=== PATIENT | female | born 1940 | race Caucasian/White ===

== ENCOUNTER → 2023-04-24 08:42 | Outpatient (REF) | payer MEDICARE, OTHER, SELFPAY ==
[2023-04-24 09:43] LABS: ALT (SGPT) 34 U/L (0-35); AST (SGOT) 41 U/L (14-36); Albumin 4.6 g/dl (3.5-5.0); Alkaline Phosphatase 73 U/L (38-126); Blood Urea Nitrogen 21 mg/dl (7-17); Calcium 10.3 mg/dl (8.4-10.2); Carbon Dioxide 31 mmol/L (22-30); Chloride 100 mmol/L (98-107); Glucose 101 mg/dl (70-99); Potassium 5.4 mmol/L (3.5-5.1); Sodium 136 mmol/L (135-145); Total Bilirubin 1.1 mg/dl (0.2-1.3); Total Protein 7.5 g/dl (6.3-8.2); eGFR > 60.00
[2023-04-24 10:18] LABS: TSH 1.01 uIU/ml (0.47-4.68)
[2023-04-26 03:19] LABS: ANA, IgG Reflex to HEp-2 None Detected (None Detected)
== END ==
LOC: REG 08:42
PROVIDERS: ATTENDING PHYSICIAN Nurse Practitioner Family
DX: R42 Dizziness and giddiness (principal); R68.2 Dry mouth, unspecified; E78.5 Hyperlipidemia, unspecified
CPT/HCPCS: 36415; 80053; 84443; 86038

== ENCOUNTER → 2023-04-26 09:44 | Outpatient (REF) | payer MEDICARE, OTHER, SELFPAY ==
[2023-04-26 10:24] LABS: ALT (SGPT) 31 U/L (0-35); AST (SGOT) 36 U/L (14-36); Albumin 4.5 g/dl (3.5-5.0); Alkaline Phosphatase 75 U/L (38-126); Blood Urea Nitrogen 18 mg/dl (7-17); Carbon Dioxide 27 mmol/L (22-30); Chloride 99 mmol/L (98-107); Glucose 95 mg/dl (70-99); Potassium 4.3 mmol/L (3.5-5.1); Sodium 133 mmol/L (135-145); Total Bilirubin 1.2 mg/dl (0.2-1.3); Total Protein 7.6 g/dl (6.3-8.2); eGFR > 60.00
== END ==
LOC: REG 09:44
PROVIDERS: ATTENDING PHYSICIAN Nurse Practitioner Family; FAMILY PHYSICIAN Family Medicine
DX: E87.8 Other disorders of electrolyte and fluid balance, not elsewhere classified (principal)
CPT/HCPCS: 36415; 80053

== ENCOUNTER → 2023-05-28 08:36 | Outpatient (REF) | payer MEDICARE, OTHER, SELFPAY ==
[2023-05-28 09:47] LABS: Blood Urea Nitrogen 24 mg/dl (7-17); Carbon Dioxide 30 mmol/L (22-30); Chloride 102 mmol/L (98-107); Glucose 104 mg/dl (70-99); Potassium 4.2 mmol/L (3.5-5.1); Sodium 137 mmol/L (135-145); eGFR > 60.00
== END ==
LOC: REG 08:36
PROVIDERS: ATTENDING PHYSICIAN Nurse Practitioner Family; FAMILY PHYSICIAN Family Medicine
DX: I10 Essential (primary) hypertension (principal); E87.1 Hypo-osmolality and hyponatremia
CPT/HCPCS: 36415; 80048

== ENCOUNTER → 2023-07-17 13:58 | Outpatient (REF) | payer MEDICARE, OTHER, SELFPAY | LOC: WDC 13:58 | PROVIDERS: ATTENDING PHYSICIAN Surgery; FAMILY PHYSICIAN Family Medicine | DX: R92.2 Inconclusive mammogram (principal) | CPT/HCPCS: 76641 ==

== ENCOUNTER → 2023-12-18 12:42 | Outpatient (REF) | payer MEDICARE, OTHER, SELFPAY | LOC: WDC 12:42 | PROVIDERS: ATTENDING PHYSICIAN Surgery; FAMILY PHYSICIAN Family Medicine | DX: C50.412 Malignant neoplasm of upper-outer quadrant of left female breast (principal); Z12.31 Encounter for screening mammogram for malignant neoplasm of breast | CPT/HCPCS: 77063; 77067 ==

== ENCOUNTER 2024-01-22 15:45 | Outpatient (RCR) | payer MEDICARE, OTHER, SELFPAY | END 2024-01-22 23:59 | disposition home or self-care (01) | LOC: RPT 15:45 | PROVIDERS: ATTENDING PHYSICIAN Family Medicine | DX: M54.31 Sciatica, right side (principal); Z73.6 Limitation of activities due to disability; R26.89 Other abnormalities of gait and mobility | CPT/HCPCS: 97010; 97110; 97162 ==

== ENCOUNTER 2024-02-05 15:46 | Outpatient (RCR) | payer MEDICARE, OTHER, SELFPAY | END 2024-02-05 23:59 | disposition home or self-care (01) | LOC: RPT 15:46 | PROVIDERS: ATTENDING PHYSICIAN Family Medicine | DX: M54.30 Sciatica, unspecified side (principal); R26.89 Other abnormalities of gait and mobility; Z73.6 Limitation of activities due to disability | CPT/HCPCS: 97010; 97110 ==

== ENCOUNTER 2024-03-07 15:06 | Outpatient (RCR) | payer MEDICARE, OTHER, SELFPAY | END 2024-03-07 15:08 | disposition home or self-care (01) | LOC: RPT 15:06 | PROVIDERS: ATTENDING PHYSICIAN Family Medicine | DX: M54.30 Sciatica, unspecified side (principal); R26.89 Other abnormalities of gait and mobility; Z73.6 Limitation of activities due to disability | CPT/HCPCS: 97010; 97110 ==

== ENCOUNTER → 2024-05-16 10:57 | Outpatient (REF) | payer MEDICARE, OTHER, SELFPAY | LOC: RCS 10:57 | PROVIDERS: ATTENDING PHYSICIAN Physician Assistant | DX: R53.83 Other fatigue (principal); Z95.2 Presence of prosthetic heart valve; Q23.81 Bicuspid aortic valve; R05.3 Chronic cough | CPT/HCPCS: 71046; 93306 ==

== ENCOUNTER → 2024-05-16 15:06 | Outpatient (REF) | payer MEDICARE, OTHER, SELFPAY ==
[2024-05-16 15:39] LABS: Blood Urea Nitrogen 22 mg/dl (7-17); Calcium 10.4 mg/dl (8.4-10.2); Carbon Dioxide 32 mmol/L (22-30); Chloride 99 mmol/L (98-107); Glucose 127 mg/dl (70-99); Potassium 3.7 mmol/L (3.5-5.1); Sodium 136 mmol/L (135-145); eGFR > 60.00
== END ==
LOC: RAD 15:06
PROVIDERS: ATTENDING PHYSICIAN Physician Assistant
DX: I77.810 Thoracic aortic ectasia (principal)
CPT/HCPCS: 36415; 71260; 80048; Q9967

== ENCOUNTER → 2024-05-19 07:52 | Outpatient (REF) | payer MEDICARE, OTHER, SELFPAY ==
[2024-05-19 09:26] LABS: % Basophils 0.4 % (0-2); % Eosinophils 1.2 % (0-6); % Immature Granulocytes 0.3 % (0-0.5); % Lymphocytes 28.9 % (20.5-51.1); % Monocytes 8.5 % (1.7-9.3); % Neutrophils 60.7 % (42.2-75.2); Absolute Eosinophils 0.1 10^3/uL (0-0.7); Absolute Monocytes 0.6 10^3/uL (0.1-0.6); Absolute Neutrophils 4.1 10^3/uL (1.4-6.5); Hematocrit 48.3 % (37.0-47.0); Hemoglobin 15.2 g/dL (12.0-16.0); Mean Corp Hgb Conc. 31.5 g/dL (33.0-37.0); Mean Corpuscular Hgb 29.3 pg (27.0-31.0); Mean Corpuscular Volume 93.2 fL (81.0-99.0); Mean Platelet Volume 12.7 fL (7.4-10.4); Nucleated Red Blood Cells % 0 %; Platelet Count 132 10^3/uL (130-400); Red Blood Cell Count 5.18 10^6/uL (4.20-5.40); Red Cell Dist. Width 13.3 % (11.5-14.5); White Blood Cell Count 6.8 10^3/uL (4.8-10.8)
[2024-05-19 10:10] LABS: ALT (SGPT) 33 U/L (0-35); AST (SGOT) 36 U/L (14-36); Albumin 5.2 g/dl (3.5-5.0); Alkaline Phosphatase 70 U/L (38-126); Blood Urea Nitrogen 15 mg/dl (7-17); Calcium 10.6 mg/dl (8.4-10.2); Carbon Dioxide 29 mmol/L (22-30); Chloride 98 mmol/L (98-107); Glucose 108 mg/dl (70-99); HDL Cholesterol 65 mg/dl; LDL Cholesterol, Calculated 137 mg/dl; Potassium 4.7 mmol/L (3.5-5.1); Sodium 138 mmol/L (135-145); Total Bilirubin 1.4 mg/dl (0.2-1.3); Total Cholesterol 234 mg/dl (50-199); Triglyceride 160 mg/dl (10-149); Very Low Density Lipoprotein 32 mg/dl (0-30); eGFR > 60.00
[2024-05-19 10:43] LABS: Vitamin B12 398 pg/ml (239-931)
== END ==
LOC: REG 07:52
PROVIDERS: ATTENDING PHYSICIAN Family Medicine
DX: K21.9 Gastro-esophageal reflux disease without esophagitis (principal); I10 Essential (primary) hypertension; Z79.899 Other long term (current) drug therapy
CPT/HCPCS: 36415; 80053; 80061; 82607; 85025

== ENCOUNTER → 2024-09-11 12:26 | Outpatient (REF) | payer MEDICARE, OTHER, SELFPAY | LOC: RSP 12:26 | PROVIDERS: ATTENDING PHYSICIAN Family Medicine | DX: R06.02 Shortness of breath (principal) | CPT/HCPCS: 94727; 94729; 88738; 94060 ==

== ENCOUNTER 2024-09-18 21:18 | Emergency (ER) | payer MEDICARE, OTHER, SELFPAY ==
[2024-09-18 21:22] VITALS: BP 140/84
--- NOTE | 2024-09-18 23:00 | ED.GENMED ---
History of Present Illness
General
Chief Complaint: Abdominal Symptoms
Source: patient
Exam Limitations: none
Time Seen by Provider: 09/18/24 22:45
History of Present Illness
History of Present Illness:
83yoF with a history of pulmonary hypertension, GERD, and IBS-D presenting for evaluation of diarrhea. Patient had COVID in January of last year. She has been having intermittent issues with diarrhea since then. Her current symptoms started
'acting up' about a week ago. She denies any associated fevers, abdominal pain, hematochezia, or vomiting. No sick contacts, recent antibiotics, or recent travel. Her last colonoscopy was 2 years ago which was reportedly normal.
Past History
Past History
ED Past Medical History: HTN, Valvular disease and Other (Grade 1 breast cancer,)
ED Past Surgical History: Cardiac
Social History
Tobacco: Non-smoker
Personal:
Employment: Employed
Phy Exam
General Physical Exam
General Presentation: well appearing and no apparent distress
General Skin: warm and dry
General Habitus: normal
General Mental: alert
ENT Exam
ENT Exam: normocephalic
Pulmonary Exam
Pulmonary Exam: no respiratory distress
Gastrointestinal Exam
Gastrointestinal Exam: non tender, soft and non distended
Neurological Exam
Neurological Exam: alert
[place] Coma Scale
Eye Opening: Spontaneous
Verbal Response: Oriented
Motor Response: Obeys Commands
GCS Total Score: 15
Skin Exam
Skin Exam: normal color and warm/dry
Psychiatric Exam
Psychiatric Exam: normal mood/affect
Course
Orders/Labs/Results
Orders:
Orders
09/18/24 22:46
Complete Blood Count/With Diff Urgent
Comprehensive Metabolic Panel Urgent
Lipase Urgent
09/18/24 22:58
Stool Culture Urgent
IDA Source: Feces/Stool
Specimen Description:
Date Specimen was Collected: 09/19/24
Time Specimen was Collected: 00:17
0.9% Sodium Chloride 500 ml [Nss] 500 ml IV BOLUS
09/18/24 23:26
Ondansetron Injectable [Zofran] 4 mg .ROUTE .STK-MED ONE
09/18/24 23:29
Ondansetron Injectable [Zofran] 4 mg IV NOW STA
09/18/24 23:48
0.9% Sodium Chloride 500 ml [Nss] 500 ml IV BOLUS
Abnormal Lab Results
09/18/24
22:46
Plt Count 126 L 10^3/uL
(130-400)
MPV 12.9 H fL
(7.4-10.4)
Absolute Monos (auto) 0.9 H 10^3/uL
(0.1-0.6)
Monocytes % 10.2 H %
(1.7-9.3)
Sodium 129 L mmol/L
(135-145)
Chloride 96 L mmol/L
(98-107)
Glucose 101 H mg/dl
(70-99)
Total Bilirubin 1.6 H mg/dl
(0.2-1.3)
09/18/24 22:46
09/18/24 22:46
Vital Signs
Initial and Last Documented VS:
Initial Vital Signs
Temp Pulse Resp BP Pulse Ox
98.1 F 60 20 140/84 96
09/18/24 21:22 09/18/24 21:22 09/18/24 21:22 09/18/24 21:22 09/18/24 21:22
Last Documented Vital Signs
Temp Pulse Resp BP Pulse Ox
98.1 F 63 18 164/86 95
09/18/24 21:22 09/19/24 01:09 09/19/24 01:09 09/19/24 01:09 09/19/24 01:09
MDM/Problems Addressed
Differential Diagnosis Includes:
83yoF here with diarrhea. Intermittent for >6 months. Hx of IBS-D. Denies abd pain or vomiting. She is hypertensive with otherwise stable vitals. She is well appearing and resting comfortably. Abdominal exam is benign. Differential diagnosis
includes but is not limited to: Infectious diarrhea, IBS, dehydration
Initial ED plan: Check abdominal labs and stool culture. IV fluid bolus. Defer abdominal imaging given benign exam and lack of pain.
*Pulse Oximetry
SaO2: 96
Oxygen Mode of Delivery: Room air
Patient hypoxic: no (96%)
*Critical Care Note
Total Time (30-74mins, 75-104mins- exclusive of procedures): Not Applicable
Update Note
Update Note:
Labs reveal a sodium of 129 and a chloride of 96. Renal function is normal. Additional 500 cc normal saline bolus provided. No indication for hospitalization. She has used Imodium in the past with improvement but has not taken this recently.
She was advised to start taking Imodium as needed and call her carpenter packing tomorrow for follow-up. ED return precautions reviewed. Patient and family in agreement with plan and she was discharged in stable condition.
ED Attending Note
-
Portions of this chart may have been created with voice recognition software.� Occasional wrong word or��sound alike� substitutions may have occurred due to the inherent limitations of voice recognition software.
Discharge Plan
Departure
Patient Disposition: Home (Routine Discharge)
Date of Disposition: 09/19/24
Time of Disposition: 00:50
Patient with high blood pressure during this ER visit?: Yes
Discharge Problem:
Diarrhea, Hyponatremia
Instructions: Diarrhea in adults - ED discharge instructions
Prescriptions:
No Action
cetirizine 10 MG tablet
10 mg PO DAILY PRN (Reason: prn)
multivitamin with folic acid [Tab-A-Ángel] 1 TABLET tablet
1 tab PO DAILY
ascorbate calcium (vitamin C) 500 MG tablet
500 mg PO DAILY
hydrochlorothiazide 25 MG tablet
12.5 mg PO DAILY PRN (Reason: water retention)
cholecalciferol (vitamin D3) [Vitamin D3] 2,000 UNIT capsule
2,000 units PO DAILY
famotidine [Pepcid] 20 MG tablet
20 mg PO DAILY Qty: 30 0RF
amlodipine 2.5 mg Tablet
2.5 mg PO DAILY
lisinopril 2.5 MG tablet
20 mg PO BID
metoprolol tartrate 25 MG tablet
50 mg PO BID
Rx Instructions:
DO NOT take prior dose
Referrals:
Walter Ko MD [Family Provider, Family Practice]
Tita Couch DO [Active, Gastroenterology]
Activity Restrictions/Additional Instructions:
Drink plenty of fluids and stay hydrated. Take Imodium as needed for diarrhea.
Please call your carpenter packing tomorrow for follow-up and further instructions. Return to the ER with any new or worsening symptoms.
Interventions
Interventions:
*Risk Screen - Suicide Last Done: 09/18/24 21:22
*General Assessment Last Done: 09/18/24 21:22
*Neglect/Abuse Screening Last Done: 09/19/24 01:10
*ED- Fall Risk Assessment Last Done: 09/19/24 01:10
*ED COVID-19 Vaccine History Last Done: 09/19/24 01:10
*Nursing Disposition Last Done: 09/19/24 01:10
KR-Kqlkwe-Obaincqjtp Assessment Last Done: 09/18/24 22:48
Discharge Date and Time
Discharge Date/Time: 09/19/24 01:10
Print Language: KIS[place]ILI
[2024-09-18 23:08] LABS: ALT (SGPT) 23 U/L (0-35); AST (SGOT) 31 U/L (14-36); Albumin 4.7 g/dl (3.5-5.0); Alkaline Phosphatase 51 U/L (38-126); Blood Urea Nitrogen 11 mg/dl (7-17); Calcium 10.2 mg/dl (8.4-10.2); Carbon Dioxide 28 mmol/L (22-30); Chloride 96 mmol/L (98-107); Glucose 101 mg/dl (70-99); Lipase 90 U/L (23-300); Potassium 3.8 mmol/L (3.5-5.1); Sodium 129 mmol/L (135-145); Total Bilirubin 1.6 mg/dl (0.2-1.3); Total Protein 7.4 g/dl (6.3-8.2); eGFR > 60.00
[2024-09-18] MEDS: NSS 500 IV ×2 (23:20→23:54)
[2024-09-18 23:25] LABS: % Basophils 0.4 % (0-2); % Eosinophils 0.8 % (0-6); % Immature Granulocytes 0.2 % (0-0.5); % Lymphocytes 21.2 % (20.5-51.1); % Monocytes 10.2 % (1.7-9.3); % Neutrophils 67.2 % (42.2-75.2); Absolute Eosinophils 0.1 10^3/uL (0-0.7); Absolute Lymphocytes 1.8 10^3/uL (1.2-3.4); Absolute Monocytes 0.9 10^3/uL (0.1-0.6); Absolute Neutrophils 5.7 10^3/uL (1.4-6.5); Hemoglobin 14.1 g/dL (12.0-16.0); Mean Corp Hgb Conc. 34.4 g/dL (33.0-37.0); Mean Corpuscular Hgb 30.1 pg (27.0-31.0); Mean Corpuscular Volume 87.6 fL (81.0-99.0); Mean Platelet Volume 12.9 fL (7.4-10.4); Nucleated Red Blood Cells % 0 %; Platelet Count 126 10^3/uL (130-400); Red Blood Cell Count 4.68 10^6/uL (4.20-5.40); Red Cell Dist. Width 13.1 % (11.5-14.5); White Blood Cell Count 8.4 10^3/uL (4.8-10.8)
[2024-09-18] MEDS: ZOFRAN 4 MG IV (23:29)
[2024-09-19 01:09] VITALS: BP 164/86
== END 2024-09-19 01:10 | disposition home or self-care (01) ==
LOC: EMR 21:18
PROVIDERS: EMERGENCY PHYSICIAN Student in an Organized Health Care Education/Training Program; FAMILY PHYSICIAN Family Medicine
DX: R19.7 Diarrhea, unspecified (principal); E87.1 Hypo-osmolality and hyponatremia; K58.0 Irritable bowel syndrome with diarrhea; I10 Essential (primary) hypertension; I38 Endocarditis, valve unspecified; I27.20 Pulmonary hypertension, unspecified; Z85.3 Personal history of malignant neoplasm of breast
CPT/HCPCS: 99283; 96374; 80053; 83690; 85025; 87045; 87046; 87427

== ENCOUNTER 2024-09-19 09:40 | Emergency (ER) | payer MEDICARE, OTHER, SELFPAY ==
[2024-09-19] VITALS (9 sets, daily range): BP systolic 110–162; BP diastolic 72–114; BMI 25.8
--- NOTE | 2024-09-19 10:35 | ED.GENMED ---
History of Present Illness
General
Chief Complaint: Abdominal Symptoms
Source: patient
Exam Limitations: none
Time Seen by Provider: 09/19/24 10:34
Nursing documentation reviewed up to this point in time: agreed with
History of Present Illness
History of Present Illness:
The patient is a pleasant 83-year-old female with past medical history of IBS who reports that she has had ongoing diarrhea for months, since last January. Patient reports it is generally controlled with the brat diet and Pepto-Bismol, however,
lately it has not been controllable. Her daughter is at the bedside and reports that the patient is hesitant to leave her house due to the diarrhea. Patient reports about 2-3 episodes of diarrhea per day. She denies fevers, chills or any
significant abdominal pain. She denies blood in her stool. Her daughter reports that she is here today because her mother complained of feeling lightheaded and weak. She was evaluated in the ED yesterday for the same symptoms. The patient
reports she was evaluated by Dr. Couch years ago but has not called the GI office. She denies vomiting but states she is intermittently nauseous.
Past History
Past History
ED Past Medical History: HTN, Valvular disease, Other (Grade 1 breast cancer,) and Other (IBS)
ED Past Surgical History: Cardiac
Social History
Tobacco: Non-smoker
Alcohol: None
Drug: None
Personal: Other
Living: alone
Employment: Other
Family History
Family History: Other
Review of Systems
Review of Systems
Allergies reviewed?: Yes
All Other Systems: ROS reviewed and negative except as documented in HPI and ROS
Constitutional: Reports fatigue
EENT: Reports no symptoms
Respiratory: Reports no symptoms
Cardiac: Reports other (Daughter reports that patient was lightheaded earlier)
ABD/GI: Reports nausea and diarrhea; Denies bloody stools
: Reports no symptoms
Musculoskeletal: Reports no symptoms
Skin: Reports no symptoms
Neurological: Reports no symptoms
Endocrine: Reports no symptoms
Hematologic/Lymphatic: Reports no symptoms
Psychiatric: Reports no symptoms
Phy Exam
Physical Exam
Physical Exam:
Physical Exam
General: no apparent distress, not acutely ill, well-appearing
Neck: supple. no meningeal signs. normal psoterior pharynx
Heart: s1/s2 regular rate and rhythm
Lungs: no acute respiratory distress. clear bilaterally
Abdomen: Soft throughout. Nontender.
Neuro: alert and oriented. no focal neurological deficits
Skin: no rash
Psychiatric: well kept. interactive and cooperative
Extremities: no edema. no calf tenderness. negative homans. good distal pulses
Course
Orders/Labs/Results
Orders:
Orders
09/19/24 11:07
Complete Blood Count/With Diff Urgent
Comprehensive Metabolic Panel Urgent
Lipase Urgent
09/19/24 12:01
0.9% Sodium Chloride 1000 ml [Nss] 1,000 ml IV BOLUS
09/19/24 13:15
Consult Gastroenterology [GASTROINTESTINAL CONSULT] Urgent
Consulting Provider: Tita Couch
Was physician already notified: Yes
Reason for consult: diarrhea
Abnormal Lab Results
09/19/24
11:07
Plt Count 123 L 10^3/uL
(130-400)
MPV 13.1 H fL
(7.4-10.4)
Absolute Monos (auto) 0.8 H 10^3/uL
(0.1-0.6)
Monocytes % 10.0 H %
(1.7-9.3)
Sodium 130 L mmol/L
(135-145)
Chloride 97 L mmol/L
(98-107)
Total Bilirubin 1.6 H mg/dl
(0.2-1.3)
09/19/24 11:07
09/19/24 11:07
Vital Signs
Initial and Last Documented VS:
Initial Vital Signs
Temp Pulse Resp BP Pulse Ox
97.9 F 69 16 162/76 98
09/19/24 09:41 09/19/24 09:41 09/19/24 09:41 09/19/24 09:41 09/19/24 09:41
Last Documented Vital Signs
Temp Pulse Resp BP Pulse Ox
98.7 F 68 16 137/78 98
09/19/24 10:48 09/19/24 10:48 09/19/24 10:48 09/19/24 10:48 09/19/24 10:48
MDM/Problems Addressed
Differential Diagnosis Includes:
Acute on chronic IBS, acute colitis, inflammatory bowel disease
MDM/Problems Addressed:
Patient presents with chronic diarrhea which has been acutely worse lately
Chronic conditions affecting care:
IBS
Acute Exacerbation and/or Progression of Chronic Illness:
Patient likely has acute exacerbation of chronic IBS
Acute Exacerbation and/or Progression of Chronic Illness: Immunosuppressed
*Pulse Oximetry
SaO2: 98
Oxygen Mode of Delivery: Room air
Patient hypoxic: no
Comment: 98% on room air
*EKG
Interpreted by ED Provider?: NA
*Safety Council Director Interpretation
Rate: normal
Interpretation: normal
Rhythm: sinus
*Critical Care Note
Total Time (30-74mins, 75-104mins- exclusive of procedures): Not Applicable
Data Reviewed
Review of Other/Old Records Reveals: Radiology Studies (CT abdomen pelvis reviewed from 2013 which shows no sign of significant abnormalities)
Source: patient and family
Patient Management
Social determinants of health affecting care: Living situation and Strong social support
Discussion with other providers: Other (Dr. Couch agreed to have her physician assistant professor of biochemistry come down and evaluate the patient at the bedside)
Escalation/DeEscalation of care consider admission/obs:
GI came to evaluate patient. They feel patient can go home on cholestyramine packet once daily and will arrange close outpatient follow-up
ED Attending Note
-
Portions of this chart may have been created with voice recognition software.� Occasional wrong word or��sound alike� substitutions may have occurred due to the inherent limitations of voice recognition software.
Discharge Plan
Departure
Patient Disposition: Home (Routine Discharge)
Date of Disposition: 09/19/24
Time of Disposition: 15:06
Patient with high blood pressure during this ER visit?: Yes
Condition: Good
Covid-19: Not Applicable
Discharge Problem:
Diarrhea
Instructions: Diarrhea in teens and adults
Prescriptions:
New
cholestyramine 4 gram powder
4 g PO DAILY Qty: 201.6 0RF
No Action
cetirizine 10 MG tablet
10 mg PO DAILY PRN (Reason: prn)
multivitamin with folic acid [Tab-A-Ángel] 1 TABLET tablet
1 tab PO DAILY
ascorbate calcium (vitamin C) 500 MG tablet
500 mg PO DAILY
hydrochlorothiazide 25 MG tablet
12.5 mg PO DAILY PRN (Reason: water retention)
cholecalciferol (vitamin D3) [Vitamin D3] 2,000 UNIT capsule
2,000 units PO DAILY
famotidine [Pepcid] 20 MG tablet
20 mg PO DAILY Qty: 30 0RF
amlodipine 2.5 mg Tablet
2.5 mg PO DAILY
lisinopril 2.5 MG tablet
20 mg PO BID
metoprolol tartrate 25 MG tablet
50 mg PO BID
Rx Instructions:
DO NOT take prior dose
Referrals:
Walter Ko MD [Family Provider, Family Practice]
Activity Restrictions/Additional Instructions:
Follow-up with gastroenterology office as instructed today by the gastroenterology team.
Interventions
Interventions:
*Risk Screen - Suicide Last Done: 09/19/24 10:48
*General Assessment Last Done: 09/19/24 10:48
*Neglect/Abuse Screening Last Done: 09/19/24 10:48
*ED- Fall Risk Assessment Last Done: 09/19/24 10:48
*ED COVID-19 Vaccine History Last Done: 09/19/24 10:48
KR-Gblwgg-Ynbtlffiyi Assessment Last Done: 09/19/24 10:48
Discharge Date and Time
Print Language: NEPALI
[2024-09-19 11:21] LABS: Hematocrit 40.7 % (37.0-47.0); Hemoglobin 13.9 g/dL (12.0-16.0); Mean Corp Hgb Conc. 34.2 g/dL (33.0-37.0); Mean Corpuscular Volume 87.7 fL (81.0-99.0); Mean Platelet Volume 13.1 fL (7.4-10.4); Platelet Count 123 10^3/uL (130-400); Red Blood Cell Count 4.64 10^6/uL (4.20-5.40); Red Cell Dist. Width 13.1 % (11.5-14.5); White Blood Cell Count 7.7 10^3/uL (4.8-10.8)
[2024-09-19 11:36] LABS: ALT (SGPT) 23 U/L (0-35); AST (SGOT) 32 U/L (14-36); Albumin 4.6 g/dl (3.5-5.0); Alkaline Phosphatase 53 U/L (38-126); Blood Urea Nitrogen 11 mg/dl (7-17); Calcium 9.9 mg/dl (8.4-10.2); Carbon Dioxide 26 mmol/L (22-30); Chloride 97 mmol/L (98-107); Estimated Creatinine Clearance 55 ml/min; Glucose 90 mg/dl (70-99); Lipase 89 U/L (23-300); Potassium 3.8 mmol/L (3.5-5.1); Sodium 130 mmol/L (135-145); Total Bilirubin 1.6 mg/dl (0.2-1.3); Total Protein 7.3 g/dl (6.3-8.2); eGFR > 60.00
[2024-09-19 12:07] LABS: % Basophils 0.3 % (0-2); % Eosinophils 0.5 % (0-6); % Immature Granulocytes 0.3 % (0-0.5); % Lymphocytes 23.3 % (20.5-51.1); % Neutrophils 65.6 % (42.2-75.2); Absolute Lymphocytes 1.8 10^3/uL (1.2-3.4); Absolute Monocytes 0.8 10^3/uL (0.1-0.6); Absolute Neutrophils 5.1 10^3/uL (1.4-6.5); Nucleated Red Blood Cells % 0 %
[2024-09-19] MEDS: NSS 1000 IV (13:00)
--- NOTE | 2024-09-19 14:32 | CON.GI ---
Consultation
-
Date/Time Consultation Requested: 09/19/24 1315
Date/Time Consultation Performed: 09/19/24 1350
Requesting Provider: Dr Vasquez
Performing Provider: Bernice Silverman PA-C / Dr Couch
Reason for Consultation: diarrhea
Medical History
Chief Complaint / HPI
Chief Complaint: diarrhea
History of Present Illness:
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
increased diarrhea for the past few months. She notes that she had COVID in January 2024 and has had multiple ongoing symptoms since then, including decreased energy with increasing bouts of diarrhea. She describes the stool as loose, sometimes
more formed and sometimes watery. No melena or BRBPR. She does not see any mucus in the stools. No associated abdominal pain, nausea, vomiting. Appetite has been somewhat decreased and she does admit to weight loss, although cannot quantify how
much. Upon review of prior records, she appears to have lost about 12 pounds in the past year. This was not intentional. She takes daily fiber supplement and probiotic. She tried Imodium and Pepto Bismol, both of which did help (although
temporarily). She had a colonoscopy in January [address] Couch that showed diverticulosis and hemorrhoids, with colon biopsies negative for microscopic colitis. There is no family history of colon cancer, IBD or celiac disease.
Workup in the ER reveals essentially normal labs, other than sodium of 130 and platelet count of 123. She does have a chronic history of mild thrombocytopenia. Stool studies ordered, pending.
Past Medical History
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
Past Surgical History: Cholecystectomy (bioprosthetic aortic valve replacement 2014)
Social History
Tobacco: Non-Smoker
Alcohol: None
Drug: None
Living: Alone
Family History
Family History: Reviewed & Not Pertinent (no family history of any GI malignancies, IBD or celiac disease)
Allergies / Home Medications
Allergy/AdvReac Type Severity Reaction Status Date / Time
codeine (Codeine) Allergy hyperactivi Verified 09/19/24 09:44
ty
simvastatin Allergy myalgia Verified 09/19/24 09:44
seasonal allergies Allergy sneezing Uncoded 09/19/24 09:44
�Medication �Instructions �Recorded
cetirizine 10 mg tablet 10 mg PO DAILY PRN prn 11/21/10
multivitamin with folic acid 400 1 tab PO DAILY 11/21/10
mcg tablet (Tab-A-Ángel)
ascorbate calcium (vitamin C) 500 500 mg PO DAILY 08/25/14
mg tablet
hydrochlorothiazide 25 mg tablet 12.5 mg PO DAILY PRN water 08/25/14
retention
cholecalciferol (vitamin D3) 50 2,000 units PO DAILY 08/26/14
mcg (2,000 unit) capsule (Vitamin
D3)
famotidine 20 mg tablet (Pepcid) 20 mg PO DAILY #30 tabs 08/30/14
amlodipine 2.5 mg tablet 2.5 mg PO DAILY 01/01/23
lisinopril 2.5 mg tablet 20 mg PO BID 01/01/23
metoprolol tartrate 25 mg tablet 50 mg PO BID 01/01/23
Review of Systems
-
History Source: Patient and Family
All other systems: A 12 pt ROS was Negative except as stated above in HPI
Vital Signs
Temp Pulse Resp BP Pulse Ox
98.7 F 68 16 137/78 98
09/19/24 10:48 09/19/24 10:48 09/19/24 10:48 09/19/24 10:48 09/19/24 10:48
Physical Exam
Exam
General: Well Developed, Well Nourished and No Apparent Distress
Respiratory: Clear
Cardiac: Regular Rhythm
GI: Soft
Skin: Warm and Dry
Neuro: AO x 3
Psych: Calm
Results
WBC 7.7 10^3/uL (4.8-10.8) 09/19/24 11:07
Hgb 13.9 g/dL (12.0-16.0) 09/19/24 11:07
Hct 40.7 % (37.0-47.0) 09/19/24 11:07
MCV 87.7 fL (81.0-99.0) 09/19/24 11:07
Plt Count 123 10^3/uL (130-400) L 09/19/24 11:07
Absolute Neuts (auto) 5.1 10^3/uL (1.4-6.5) 09/19/24 11:07
Sodium 130 mmol/L (135-145) L 09/19/24 11:07
Potassium 3.8 mmol/L (3.5-5.1) 09/19/24 11:07
Chloride 97 mmol/L (98-107) L 09/19/24 11:07
Carbon Dioxide 26 mmol/L (22-30) 09/19/24 11:07
BUN 11 mg/dl (7-17) 09/19/24 11:07
Creatinine 0.6 mg/dL (0.6-1.0) 09/19/24 11:07
Calcium 9.9 mg/dl (8.4-10.2) 09/19/24 11:07
Total Bilirubin 1.6 mg/dl (0.2-1.3) H 09/19/24 11:07
AST 32 U/L (14-36) 09/19/24 11:07
ALT 23 U/L (0-35) 09/19/24 11:07
Alkaline Phosphatase 53 U/L (38-126) 09/19/24 11:07
Lipase 89 U/L (23-300) 09/19/24 11:07
Diagnostic Image Results:
Prior GI Procedures:
EGD:
Colonoscopy:
01/2023 (Dr Couch)
Colonoscopy for positive fecal occult blood testing. Good prep to the terminal ileum. External hemorrhoids, left-sided diverticulosis, mild granularity otherwise normal to the terminal ileum. No polyps or masses. Random biopsies were negative
for microscopic colitis. No repeat colonoscopy necessary
Assessment / Plan
-
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
increased diarrhea for the past few months. She notes that she had COVID in January 2024 and has had multiple ongoing symptoms since then, including decreased energy with increasing bouts of diarrhea. She describes the stool as loose, sometimes
more formed and sometimes watery. No melena or BRBPR. She does not see any mucus in the stools. No associated abdominal pain, nausea, vomiting. Appetite has been somewhat decreased and she does admit to weight loss, although cannot quantify how
much. Upon review of prior records, she appears to have lost about 12 pounds in the past year. This was not intentional. She takes daily fiber supplement and probiotic. She tried Imodium and Pepto Bismol, both of which did help (although
temporarily). She had a colonoscopy in January [address] Couch that showed diverticulosis and hemorrhoids, with colon biopsies negative for microscopic colitis. There is no family history of colon cancer, IBD or celiac disease.
Workup in the ER reveals essentially normal labs, other than sodium of 130 and platelet count of 123. She does have a chronic history of mild thrombocytopenia. Stool studies ordered, pending.
IMPRESSION / PLAN:
IBS-D (chronic), now with worsening diarrhea
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
- will order stool studies (culture, C diff, ova & parasites, crypto/giadia, as well as fecal pancreatic elastase and fecal fats, fecal calprotectin) and labs (celiac serologies, thyroid studies, inflammatory markers)
- differential diagnosis includes IBS, infectious etiology, exocrine pancreatic insufficiency, thyroid disorder, celiac disease, bile salt diarrhea, microscopic colitis vs IBD
- OK to continue Pepto Bismol or Imodium, PRN
- patient declined dicyclomine
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
- will prescribe this medication in the interim while awaiting the lab and stool testing. Discussed the medication, proper dosing (take before a meal, and apart from other meds), and possible side effects
Will arrange outpatient follow-up with our office. Case discussed with Dr. Couch.
-
-
Thank you for consultation and allowing me to participate in the patient's care. Please call the front office coordinator GI physician during the after hours with any questions or concerns.
[2024-09-19 15:59] LABS: Erythrocyte Sed Rate 9 mm/hour (0-20)
[2024-09-19 16:31] LABS: C-Reactive Protein < 5.00 mg/L (0.0-10.00)
[2024-09-19 16:47] LABS: TSH 0.79 uIU/ml (0.47-4.68)
[2024-09-22 01:11] LABS: IgA 174 mg/dl (70-400)
[2024-09-22 02:06] LABS: Endomysial IgA Antibody Titer <1:10 (<1:10)
== END 2024-09-19 15:55 | disposition home or self-care (01) ==
LOC: EMR 09:40
PROVIDERS: CONSULT PHYSICIAN Internal Medicine; EMERGENCY PHYSICIAN Emergency Medicine; FAMILY PHYSICIAN Family Medicine
DX: K58.0 Irritable bowel syndrome with diarrhea (principal); I10 Essential (primary) hypertension; E78.5 Hyperlipidemia, unspecified; D69.6 Thrombocytopenia, unspecified; Z95.3 Presence of xenogenic heart valve; Z85.3 Personal history of malignant neoplasm of breast; Z90.49 Acquired absence of other specified parts of digestive tract
CPT/HCPCS: 99283; 80053; 82784; 83516; 83690; 84439; 84443; 85025; 85652; 86140; 86231

== ENCOUNTER 2024-09-20 22:32 | Observation (INO) | payer MEDICARE, OTHER, SELFPAY ==
[2024-09-20 16:45] VITALS: BP 152/106
[2024-09-20 17:19] LABS: ALT (SGPT) 26 U/L (0-35); AST (SGOT) 43 U/L (14-36); Albumin 4.9 g/dl (3.5-5.0); Alkaline Phosphatase 63 U/L (38-126); Blood Urea Nitrogen 8 mg/dl (7-17); Calcium 10.1 mg/dl (8.4-10.2); Carbon Dioxide 22 mmol/L (22-30); Chloride 102 mmol/L (98-107); Glucose 139 mg/dl (70-99); Potassium 3.0 mmol/L (3.5-5.1); Sodium 133 mmol/L (135-145); Total Protein 7.6 g/dl (6.3-8.2); eGFR > 60.00
[2024-09-20 17:31] LABS: Hematocrit 41.2 % (37.0-47.0); Hemoglobin 14.3 g/dL (12.0-16.0); Mean Corp Hgb Conc. 34.7 g/dL (33.0-37.0); Mean Corpuscular Volume 86.4 fL (81.0-99.0); Nucleated Red Blood Cells % 0 %; Platelet Count 121 10^3/uL (130-400); Red Cell Dist. Width 13.1 % (11.5-14.5)
--- NOTE | 2024-09-20 17:39 | ED.GENMED ---
History of Present Illness
General
Chief Complaint: Change in Mental Status
Source: patient
Exam Limitations: none
Time Seen by Provider: 09/20/24 17:38
Nursing documentation reviewed up to this point in time: agreed with
History of Present Illness
History of Present Illness:
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
progressively worsened to the point where she is unable to independently get to the bathroom at home. The patients daughter reports that she was last doing well yesterday then around 4 p.m. today became suddenly weak, unable to stand or ambulate
independently. Daughters at bedside state pt has a change in mental state, hallucinating, 'seeing bugs.' Decreased appetite, no drinking much. The patient has not vomited but has experienced nausea that 'comes and goes.' The patients daughters are
concerned that the patient is not hydrating adequately at home and is consuming limited amounts of food.
Denies fever/chills.
Past History
Past History
ED Past Medical History: GERD, HTN, Hypercholesterolemia, Psychiatric (Anxiety), Other (Grade 1 breast cancer,), Other (Pulmonary hypertension) and Other (IBS)
ED Past Surgical History: Cardiac (Aortic valve replacement 2014), Cholecystectomy and Gynecological (Left mastectomy)
Social History
Tobacco: Non-smoker
Alcohol: None
Drug: None
Personal: Other
Living: alone
Employment: Other
Family History
Family History: Other
Review of Systems
Review of Systems
Allergies reviewed?: Yes
All Other Systems: ROS reviewed and negative except as documented in HPI and ROS
Constitutional: Reports fatigue (she had COVID in January 2024 and has had multiple ongoing symptoms since then, including decreased energy with increasing bouts of diarrhea.); Denies fever
Respiratory: Reports cough (this is not new, had recent pulmonology workup); Denies trouble breathing
Cardiac: Denies chest pain or syncope
ABD/GI: Reports nausea and other (colonoscopy in January [address] Couch that showed diverticulosis and hemorrhoids, with colon biopsies negative for microscopic colitis.); Denies abdominal pain or vomiting
: Denies dysuria, frequency, incontinence, difficulty voiding or urgency
Musculoskeletal: Reports no symptoms
Skin: Reports no symptoms
Neurological: Denies dizzy, headache or numbness
Phy Exam
Physical Exam
Physical Exam:
GENERAL: No acute distress. A&Ox3.
CONSTITUTIONAL: Afebrile.
EYES: clear, conjunctivae normal
ENMT: moist mucus membranes, Pharynx nl
RESPIRATORY: Regular respirations, nonlabored, lungs clear.
CARDIOVASCULAR: Regular rate and rhythm, no murmurs, no rubs.
GI: Soft, nontender, normal BS
MUSCULOSKELETAL: Moves with ease. Well perfused. No edema.
SKIN: Warm, dry, pink
PSYCH: Normal mood and affect. Well kept, interactive and appropriate
NEUROLOGIC: Awake, alert and oriented. No focal neurological deficits
Sepsis
Sepsis Screening
Sepsis Assessment: Sepsis Ruled Out
Sepsis Screen
Sepsis Screen: Sepsis Ruled Out
Date: 09/20/24
Time: 20:38
Course
Orders/Labs/Results
Orders:
Orders
09/20/24 16:49
Electrocardiogram (*1) Urgent
Reason for Study: Other
Other Reason for Exam: Possible Sepsis
EKG- Treatment ONCE
IV Insert/Care/Rem.- Treatment PRN
09/20/24 16:57
Complete Blood Count/With Diff Urgent
Comprehensive Metabolic Panel Urgent
Lactic Acid Q4H
Comment: ON ICE, CANCEL 2ND ORDER IF FIRST LACTIC ACID LEVEL <2
09/20/24 18:07
Straight cath- Treatment ONCE
09/20/24 18:08
0.9% Sodium Chloride 1000 ml [Nss] 1,000 ml IV BOLUS
09/20/24 18:30
Urinalysis Reflex To Culture Urgent
Date Specimen was Collected: 09/20/24
Time Specimen was Collected: 18:28
09/20/24 19:16
Potassium Chloride [KCl] 40 meq PO NOW STA
09/20/24 19:23
CT Head W/o Iv Contrast Urgent
Comment:
Reason For Exam: change in mental state, confusion
09/20/24 19:54
Troponin I Urgent
Abnormal Lab Results
09/20/24 09/20/24
16:57 18:30
Plt Count 121 L 10^3/uL
(130-400)
MPV 12.4 H fL
(7.4-10.4)
Absolute Monos (auto) 1.1 H 10^3/uL
(0.1-0.6)
Monocytes % 11.6 H %
(1.7-9.3)
Sodium 133 L mmol/L
(135-145)
Potassium 3.0 L mmol/L
(3.5-5.1)
Glucose 139 H mg/dl
(70-99)
AST 43 H U/L
(14-36)
Urine Ketones 1+ A
(Negative)
09/20/24 16:57
09/20/24 16:57
Vital Signs
Initial and Last Documented VS:
Initial Vital Signs
Temp Pulse Resp BP Pulse Ox
97.9 F 82 18 152/106 97
09/20/24 16:45 09/20/24 16:45 09/20/24 16:45 09/20/24 16:45 09/20/24 16:45
Last Documented Vital Signs
Temp Pulse Resp BP Pulse Ox
97.9 F 66 18 126/77 97
09/20/24 16:45 09/20/24 19:00 09/20/24 19:00 09/20/24 19:00 09/20/24 19:00
MDM/Problems Addressed
Differential Diagnosis Includes:
UTI, dehydration,
MDM/Problems Addressed:
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
progressively worsened to the point where she is unable to independently get to the bathroom at home. The patients daughter reports that she was last doing well yesterday then around 4 p.m. today became suddenly weak, unable to stand or ambulate
independently. Daughters at bedside state pt has a change in mental state, hallucinating, 'seeing bugs.' Decreased appetite, no drinking much. The patient has not vomited but has experienced nausea that 'comes and goes.' The patients daughters are
concerned that the patient is not hydrating adequately at home and is consuming limited amounts of food.
Problems:
- Acute: Generalized weakness, concern for urinary tract infection, potential mental status changes.
Plan:
1. Obtain a urine sample via catheterization to assess for a urinary tract infection.
2. Initiate intravenous fluids to address potential dehydration.
3. PO fluids
4. Continue to monitor and assess changes in mental status and overall improvement in strength and mobility.
77:15 p.m.
CBC normal
CMP: K+ 3.0 otherwise unremarkable
U/A neg
Plan: Admit, change in mental state, general weakness, ambulatory dysfunction.
8:[address] showing nothing acute
Hospitalist notified of admission.
*Pulse Oximetry
SaO2: 97
Oxygen Mode of Delivery: Room air
Patient hypoxic: no
*EKG
EKG Intrepretation Date: 09/20/24
Interpretation: abnormal
Heart Rate: 82
Rate: normal
Rhythm: sinus
[place]: normal axis
Interval: normal interval
QRS Pattern: wide non-specific
Ischemia: no ischemia
*Critical Care Note
Total Time (30-74mins, 75-104mins- exclusive of procedures): Not Applicable
ED Attending Note
-
Portions of this chart may have been created with voice recognition software.� Occasional wrong word or��sound alike� substitutions may have occurred due to the inherent limitations of voice recognition software.
Discharge Plan
Departure
Patient Disposition: Admit
Date of Disposition: 09/20/24
Time of Disposition: 19:22
Admit to: Med/Surg
Presentation/result/management discussed w/ accepting MD/DO: Hospitalist
Condition: Fair
Discharge Problem:
Change in mental state, Acute hypokalemia, Ambulatory dysfunction
Prescriptions:
No Action
amlodipine 2.5 mg Tablet
2.5 mg PO DAILY
cholestyramine 4 gram powder
4 g PO DAILY Qty: 201.6 0RF
lisinopril 20 mg Tablet
20 mg PO DAILY
hydrochlorothiazide 12.5 mg Tablet
12.5 mg PO DAILY
loperamide 2 mg Tablet
2 mg PO TIDPRN PRN (Reason: diarrhea)
metoprolol tartrate 50 mg Tablet
50 mg PO BID
Visbiome 112.5 billion cell Capsule
1 cap PO DAILY
Referrals:
UNKNOWN - PT DOES,NOT KNOW [Family Provider]
Interventions
Interventions:
*Risk Screen - Suicide Last Done: 09/20/24 16:45
*General Assessment Last Done: 09/20/24 19:57
*Neglect/Abuse Screening Last Done: 09/20/24 16:45
ED- Neurological Assessment Last Done: 09/20/24 19:56
ED Swallowing Screen Last Done: 09/20/24 19:56
Discharge Date and Time
Print Language: KYRGYZ
[2024-09-20 18:23] VITALS: BP 150/84
[2024-09-20 18:38] LABS: Urine Character Clear (Clear)
[2024-09-20 18:42] VITALS: BMI 22.3
[2024-09-20] MEDS: NSS 1000 IV (18:53)
[2024-09-20 19:00] VITALS: BP 126/77
[2024-09-20] MEDS: KCL 40 MEQ PO (20:13)
[2024-09-20 20:16] VITALS: BP 146/87
[2024-09-20 20:29] LABS: Troponin I 0.019 ng/ml
--- NOTE | 2024-09-20 21:40 | HPS.HSE ---
Family Physician
-
Family Physician: NOT KNOW UNKNOWN - PT DOES
Chief Complaint
-
Weakness, Hallucinations
History of Present Illness
Patient is an 83y F with PMH significant for IBS-D, hypertension and prior BioAVR who presents to ED complaining of weakness and confusion / hallucinations. History obtained from patient and family at the bedside. Patient able to provide
accurate history - albeit with rambling and occasionally tangential speech requiring redirection to stay on task. Patient has been seen in the ED here at each of the past three days. Prior visits presumably due to weakness and reported increase
in her usual diarrhea / IBS symptoms. Patient reports IBS symptoms since her 30s. Has had recent increase in symptoms off-and-on since January 2024 (COVID infection at that time).
Patient reports recent increase in loose stools - stating that she has been having diarrhea after every meal. As a result she has been somewhat hesitant to eat. She has been drinking fluids however.
She received IVFs in the ED during each visit and felt somewhat improved for a short time afterward.
Yesterday, she was seen in the ED by GI and started on cholestyramine. Stool studies were sent and are still pending at this time.
Patient took a dose of cholestyramine last PM and again this AM. She has not had loose stool (or other BM) since last PM.
She seemed to be doing fairly well this AM / earlier today; however, she became increasingly weak as the day wore on with increased difficulty getting around in the house.
This prompted them to return to the ED for further evaluation.
Patient / family also report that she has been having some visual hallucinations since this AM. She has seen people in her room, bugs on the floor, etc. This continues here in the ED.
Patient also notes cough over the past few days. No fevers / chills. No chest pain or dyspnea.
Medical History
Past Medical History
Past Medical History: Reports Other
Additional Past Medical History:
Hypertension
Breast Cancer
Bicuspid Aortic Valve
IBS-D
Anxiety / Depression
Past Surgical History: Reports Other
Additional Past Surgical History:
Cholecystectomy
BioAVR
Left Lumpectomy
Tubal Ligation
Social History
Tobacco: Non-smoker
Alcohol: None
Drug: None
Living: Alone
Family History
Family History: Not pertinent
Allergies / Home Medications
Allergies reflects when Allergies were last updated in [facility].
Home Medications with original date entered in [facility]
Allergy/Medication List:
Allergies
Allergy/AdvReac Type Severity Reaction Status Date / Time
codeine (Codeine) Allergy hyperactivi Verified 09/19/24 09:44
ty
simvastatin Allergy myalgia Verified 09/19/24 09:44
seasonal allergies Allergy sneezing Uncoded 09/19/24 09:44
Home Medications
amlodipine 2.5 mg tablet 2.5 mg PO DAILY 01/01/23
cholestyramine 4 gram oral powder 4 g PO DAILY #201.6 grams 09/19/24
Lactobac no.2-Bifidobac no.1-S. thermo 112.5 billion cell capsule (Visbiome) 1 cap PO DAILY 09/20/24
hydrochlorothiazide 12.5 mg tablet 12.5 mg PO DAILY 09/20/24
lisinopril 20 mg tablet 20 mg PO DAILY 09/20/24
loperamide 2 mg tablet 2 mg PO TIDPRN PRN diarrhea 09/20/24
metoprolol tartrate 50 mg tablet 50 mg PO BID 09/20/24
Review of Systems
-
History Source: Patient and Family
A 12 point ROS was completed and negative except as noted: Yes
Constitutional: Reports Fatigue; Denies Fever or Chills
EENT: Denies Sore Throat
Respiratory: Reports Cough; Denies Trouble Breathing
Cardiac: Denies Chest Pain or Palpitations
Abdomen/GI: Reports Diarrhea and Anorexia; Denies Abdominal Pain, Nausea, Vomiting, Constipated, Bloody Stools or Black Stools
: Denies Dysuria or Flank Pain
Musculoskeletal: Denies Joint Pain or Edema
Neurological: Denies Dizzy or Headache
Psych: Denies Depression or Anxiety
Physical Exam
Vital Signs
Vital Signs
Temp Pulse Resp BP Pulse Ox
97.9 F 66 18 126/77 97
09/20/24 16:45 09/20/24 19:00 09/20/24 19:00 09/20/24 19:00 09/20/24 19:00
Physical Exam
General: Other (83y F in no acute distress.)
HEENT: Moist mucous membranes and PERRLA
Respiratory: Clear; No Wheezes, Rales or Rhonchi
Cardiac: S1/S2, Regular Rhythm and Murmur (II/ KATHY)
GI: Soft, Non Tender, Non Distended and Normal Bowel Sounds
Musculoskeletal: No Clubbing, No Cyanosis and No Edema
Neuro: AO x 3 and Nonfocal/grossly intact
Psych: Other (Rambling / tangential speech. Reports visual hallucinations. )
Laboratory Results
-
09/20/24 16:57
09/20/24 16:57
Laboratory Results
Lactic Acid Cancelled 09/20/24 21:00
Total Bilirubin 1.2 mg/dl (0.2-1.3) 09/20/24 16:57
AST 43 U/L (14-36) H 09/20/24 16:57
ALT 26 U/L (0-35) 09/20/24 16:57
Alkaline Phosphatase 63 U/L (38-126) 09/20/24 16:57
Troponin I 0.019 ng/ml 09/20/24 19:54
Impression/Plan
-
A/P: Patient is an 83y F with PMH significant for IBS-D, hypertension and anxiety / depression who presents to ED for evaluation of weakness, confusion and hallucinations.
Acute TME
Hallucinations
- Observe overnight for further evaluation and treatment.
- ? secondary to recent GI symptoms, metabolic derangements, etc - though none seem particularly severe.
- CT head in the ED is unremarkable.
- Only new med is cholestyramine which should not cause hallucinations, etc.
- Treat IBS / metabolic issues / etc as noted below.
- Thyroid studies were done 09/19 and were normal.
- Follow for changes / improvement in symptoms.
- ? indicative of underlying / alternate process, i.e. newly recognized dementia, etc?
IBS-D
- Improving. No diarrhea since beginning cholestyramine.
- Continue current med regimen.
- Follow bowel pattern.
- IVFs overnight.
- Follow-up results of stool studies from 09/09.
- Consider GI eval if diarrhea recurs.
- BRAT diet as tolerated / encourage PO intake.
Hyponatremia
Hypokalemia
- Na level has improved over the past 3 days and does not seem severe enough to explain mental status changes.
- Encourage PO intake as noted above.
- Would discontinue HCTZ.
- Follow for continued improvement.
- PO potassium replacement given in the ED. IVFs with LR overnight.
- Repeat labs in AM with Mg.
Cough
- Some degree of chronic cough since 01/2024. ? new / worse recently.
- Check CXR.
Benign Hypertension
- Stable. Hold HCTZ as noted.
- Continue other BP medications with holding parameters.
Anxiety / Depression
- Patient previously maintained on Librium for years for anxiety / IBS symptoms.
- Stopped > 1 year ago.
- Declined SSRI or similar for her PCP.
DVT Prophylaxis: Lovenox
Code Status: Full
--- NOTE | 2024-09-20 23:30 | PTCARENOTE ---
Received patient by stretcher from ED. Patient was able to stand and pivot to bed. AAOx3. Aware of situation. Patient was able to hold conversation and answer admission questions with great detail.
[2024-09-20 23:31] VITALS: BP 156/85; BMI 23.6
[2024-09-21] VITALS (10 sets, daily range): BP systolic 108–184; BP diastolic 53–110; PULSE 73–100; BMI 23.6
[2024-09-21] MEDS: LR 1000 IV ×3 (00:07→23:50)
[2024-09-21] MEDS: TYLENOL 650 MG PO (03:12)
[2024-09-21] MEDS: APRESOLINE 5 MG IV (03:32)
[2024-09-21 06:45] LABS: ALT (SGPT) 26 U/L (0-35); AST (SGOT) 41 U/L (14-36); Albumin 4.3 g/dl (3.5-5.0); Alkaline Phosphatase 55 U/L (38-126); Blood Urea Nitrogen 5 mg/dl (7-17); Calcium 9.5 mg/dl (8.4-10.2); Carbon Dioxide 22 mmol/L (22-30); Chloride 109 mmol/L (98-107); Estimated Creatinine Clearance 58 ml/min; Glucose 108 mg/dl (70-99); Magnesium 1.9 mg/dl (1.6-2.3); Potassium 3.6 mmol/L (3.5-5.1); Sodium 138 mmol/L (135-145); Total Protein 6.8 g/dl (6.3-8.2); eGFR > 60.00
[2024-09-21 07:13] LABS: Hematocrit 40.9 % (37.0-47.0); Hemoglobin 13.9 g/dL (12.0-16.0); Mean Corp Hgb Conc. 34.0 g/dL (33.0-37.0); Mean Corpuscular Volume 88.0 fL (81.0-99.0); Red Cell Dist. Width 13.2 % (11.5-14.5)
[2024-09-21] MEDS: NORVASC 2.5 MG PO (08:09)
[2024-09-21] MEDS: ZESTRIL 20 MG PO (08:10)
[2024-09-21] MEDS: LOPRESSOR 50 MG PO ×2 (08:10→20:23)
[2024-09-21] MEDS: QUESTRAN 4 GRAM PO (08:10)
[2024-09-21 08:17] LABS: Platelet Count 111 10^3/uL (130-400)
--- NOTE | 2024-09-21 10:11 | W.PN.HOSP.TC ---
Addendum entered and electronically signed by Ramez Meek DO 09/21/24 12:49:
Chronic thrombocytopenia noted. Unclear etiology. Counts are stable compared to previous. Recommend outpatient follow-up.
Addendum entered and electronically signed by Ramez Meek DO 09/21/24 12:40:
Brain MRI read as normal.
Will consult psychiatry for visual hallucinations.
Discussed with patient.
Original Note:
Today's Communication/Plan
-
Brain MRI
Assessment / Plan
Assessment / Plan
Gen-AAOx3, NAD
HEENT-NC, AT, anicteric, clear oral mm
Neck-supple
CV-reg, no M, +S1/S2
Lungs-clear B/L
Abd-soft, NT, ND
Ext-no edema
Musculoskeletal-no cyanosis, clubbing
Skin-warm and dry
Neuro-grossly non-focal
Psych-calm, cooperative
Hyponatremia -possibly hypovolemic. HCTZ contributing. Sodium normalized. Permanently discontinue HCTZ moving forward.
Hypokalemia -possibly due to GI losses, diarrhea. Potassium improved. Magnesium 1.9.
Visual hallucinations -unclear etiology. Differential diagnosis of PRES syndrome due to elevated blood pressure versus underlying psychiatric disease or cognitive impairment such as dementia.
Will order brain MRI. CT head unremarkable, does show mild age-related atrophy.
If brain MRI is normal then we can consult psychiatry. If brain MRI is abnormal, consult neurology.
IBS�D -cholestyramine daily. Doubt infectious diarrhea. Stool culture negative so far.
Essential hypertension with hypertensive urgency -blood pressure 184/110 last night, improved to 131/53. HCTZ discontinued due to hyponatremia. Continue home doses of amlodipine, lisinopril, metoprolol. If needed, can increase dose of amlodipine.
History of breast cancer -left lumpectomy.
Bicuspid aortic valve -bio AVR.
Anxiety/depression
Full code
Daughter updated at the bedside.
Anticipated Discharge: Within 24 hours
Subjective/Interval History
-
Date of Service: September 21, 2024
Patient seen and examined. Still with visual hallucinations. Denies other complaints.
Objective Data
-
Labs:
Laboratory Results
09/21/24
05:46
WBC 6.3
Hgb 13.9
Hct 40.9
Plt Count 111 L
Sodium 138
Potassium 3.6
Chloride 109 H
Carbon Dioxide 22
BUN 5 L
Creatinine 0.4 L
Glucose 108 H
Calcium 9.5
Total Bilirubin 1.1
AST 41 H
ALT 26
Alkaline Phosphatase 55
Vital Signs:
Vital Signs
Temp Pulse Resp BP Pulse Ox
98.1 F 77 16 131/53 98
09/21/24 07:10 09/21/24 08:09 09/21/24 07:10 09/21/24 08:09 09/21/24 07:10
I&O
09/20/24 09/21/24 09/22/24
06:59 06:59 06:59
Intake Total 940 / 940
Balance 940 / 940
Review of Systems
-
History Source: Patient
All other systems: Reviewed and negative
--- NOTE | 2024-09-21 13:12 | CS.PSYCHR ---
Consult Summary - Psychiatry
-
Patient seen by me on 09/21/2024 from 1:22pm-1:55pm
Psychiatry consult for confusion/hallucinations. 83y female with medical history as noted below admitted on 09/20/2024 for weakness, confusion and hallucinations of people in her room and bugs on the floor. Family is present in room and states this
was an acute change for her that they noticed yesterday. They state at baseline she is calm and logical. They deny any previous episodes like this. They are concerned that she has not been getting sleep which is exacerbating her condition. Patient
states she is no longer seeing people or bugs in her room, only different patterns on solid surfaces. She is oriented to self, place, year, date, president at this time. She denies a history lucrecia, depression or psychosis.
CT head shows mild age-related atrophy
MRI brain negative
sodium went from 129 on 09/18 to 138 today (HCTZ was discontinued)
MSE- good eye contact, cooperative. talkative and tangential but redirectable. Denies SI/HI. admits to [facility] as noted above. Limited insight/judgement
PMH- Hypertension, Breast Cancer, Bicuspid Aortic Valve, IBS-D, cholecystectomy, BioAVR
Past psych- history of anxiety. treated with PRN librium by PCP in the past; no history of lucrecia or psychosis
Family history of bipolar disorder
Social history- Lives alone. . has multiple children and grandchildren. 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
Family history- 83 yo female with likely delirium possibly secondary to hyponatremia. Though lab values have now normalize, an older brain with atrophy can take longer to clear back to baseline. Will check B12/Folate and vit d. will try mirtazapine
7.5mg HS to see if patient sleeps tonight. Will recheck basic met to monitor sodium in the morning. Unlikely new onset lucrecia or psychosis in an elderly patient with no prior episodes. Psychiatry will follow up.
--- NOTE | 2024-09-21 16:03 | CM ---
CM met with pt and two dtrs bedside (Edyta and Ariadna)
Pt resides alone at [facility] apartments with elevator access
Pt is indep with use of her rollator, drives+
Her family checks in on her about 3x weekly
denies SNF/VN hx and financial insecurities
PCP- Walter Ko
Rx- [facility] verbally reviewed- copy provided
SNF recs- PAC provided
Pt without qualifying stay due to OBS status
Plan to F/U with [facility] if she is eligible for the waiver
Plan to follow up tomorrow on waiver eligibility
Discharge Disposition- home with VN vs SNF
[2024-09-21 16:16] LABS: Vitamin B12 442 pg/ml (239-931)
[2024-09-21] MEDS: LOVENOX 40 MG SC (17:21)
[2024-09-21] MEDS: REMERON 7.5 MG PO (21:19)
[2024-09-22] MEDS: TYLENOL 650 MG PO ×2 (03:54→20:39)
[2024-09-22 06:23] VITALS: BMI 23.6
[2024-09-22 07:02] LABS: Blood Urea Nitrogen 11 mg/dl (7-17); Estimated Creatinine Clearance 58 ml/min; Glucose 88 mg/dl (70-99)
[2024-09-22 07:03] LABS: Calcium 9.9 mg/dl (8.4-10.2); Carbon Dioxide 24 mmol/L (22-30); Chloride 109 mmol/L (98-107); Potassium 3.9 mmol/L (3.5-5.1); Sodium 140 mmol/L (135-145); eGFR > 60.00
[2024-09-22 07:10] VITALS: BP 130/79
[2024-09-22] MEDS: NORVASC 2.5 MG PO (08:33)
[2024-09-22] MEDS: LOPRESSOR 50 MG PO ×2 (08:33→20:30)
[2024-09-22] MEDS: QUESTRAN 4 GRAM PO (08:34)
[2024-09-22] MEDS: ZESTRIL 20 MG PO (08:34)
[2024-09-22] MEDS: LR IV (08:34)
--- NOTE | 2024-09-22 12:02 | W.PN.HOSP.TC ---
Today's Communication/Plan
-
Neuro eval
Add Thiamine and MVI
PT eval
Assessment / Plan
Assessment / Plan
83-year-old female admitted for weakness, confusion and hallucinations seeing people in the room and bugs on the floor
MRI of the brain-no acute acute abnormality
Pt is slightly restless
Awake alert and oriented x 3
She has good insight into what is going on with her
States that she has not had any hallucinations today. She had some yesterday.
Cardiovascular system S1-S2 appreciated
Chest clear to auscultation
Abdomen soft and nontender
No pedal edema
No facial droop, good strength bilateral upper extremity and lower extremity
# Hyponatremia sodium 129 on admission
Stop HCTZ and do not resume
Sodium better
# Hypokalemia-likely secondary to GI losses and diarrhea potassium improved. Magnesium 1.9
# Visual hallucinations of unclear etiology
Differential diagnosis of PRES syndrome due to elevated blood pressure versus underlying psychiatric disease or cognitive impairment such as dementia.
Will order brain MRI. CT head unremarkable, does show mild age-related atrophy.
Psychiatry consulted
Remeron 7.5 mg ordered per psychiatry
Normal TSH and B12 levels
Check B1 level
Diet has been very restricted like brat diet very often because of her diarrhea
Add multivitamin and thiamine replacements
Will request neurology evaluation
# [id number]. Stool cultures negative so far
Colonoscopy January by Dr. Couch which showed diverticulosis and hemorrhoids biopsies were negative for microscopic colitis.
Patient was seen by GI in the ER on 09/19/2024.
Recommended symptomatic treatment with Pepto-Bismol or Imodium as needed. Patient declined dicyclomine.
Questran was prescribed
# Essential hypertension with hypertensive urgency
Blood pressure improved
Continue Norvasc, lisinopril, metoprolol
# Chronic thrombocytopenia
# Bicuspid aortic valve with history of bio prosthetic AVR
# Ascending aortic aneurysm-4.1 cm
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
# Severe DDD throughout cervical, thoracic and lumbar spine
# Ex-smoker
# DVT prophylaxis-Lovenox
# Full code
Discussed with case management
Discussed with nursing
Discussed with multiple family members at bedside
Discussed with neurology- will request consult.
Patient will benefit from short-term rehab/SNF- Case management consulted.
time spent over 50 min
Part of this note was created using voice recognition system. Occasional wrong word or��sound alike� substitutions may have inadvertently occurred due to the inherent limitations of voice recognition software. If noted kindly bring it to my
attention for correction.
Anticipated Discharge: Within 24 hours
Subjective/Interval History
-
Date of Service: September 22, 2024
Objective Data
-
Labs:
Laboratory Results
09/22/24
06:01
Sodium 140
Potassium 3.9
Chloride 109 H
Carbon Dioxide 24
BUN 11
Creatinine 0.5 L
Glucose 88
Calcium 9.9
Vital Signs:
Vital Signs
Temp Pulse Resp BP Pulse Ox
98.1 F 72 18 130/79 98
09/22/24 07:10 09/22/24 08:33 09/22/24 07:10 09/22/24 08:33 09/22/24 10:18
I&O
09/21/24 09/22/24 09/23/24
06:59 06:59 06:59
Intake Total 940 / 940 1789
Balance 940 / 940 1789
[2024-09-22 12:08] LABS: Vitamin D, 25-OH*** 36.0 ng/mL (30-80)
--- NOTE | 2024-09-22 12:13 | CM ---
CM following re: discharge planning.
Reviewed pt's chart, met with pt. Pt's son Myles at bedside [phone].
PT and OT evaluations noted - SNF level of care recommended.
Pt is OBS status. CM confirmed with Mohamud OCHOA that pt is a member of [employer] and eligible for waiver. In- network SNFs in [place] area: [facility], [facility], [facility]. MD is aware.
CM discussed it with pt's son Myles and daughter and they expressed their great appreciation regarding navigating next level of care. Pt's son and daughter are notified of in network SNFs in [facility] and they requested to fax a referral to
in-network SNFs and they preferred number one choice [facility].
A referral to [facility], [facility] and [facility] made. Awaiting for determination.
GABRIELA is working with Mohamud OCHOA on required documentation for a waiver program to be approved.
D/C plan: preferred SNF after approved for waiver.
CM will follwo to assit pt ariana discharge to a preferred SNF.
[2024-09-22] MEDS: THERAGRAN 1 TABLET PO (12:34)
[2024-09-22] MEDS: VITAMIN B1 100 MG PO (12:34)
[2024-09-22 15:05] VITALS: BP 127/74
[2024-09-22 16:41] VITALS: BP 146/86; BP 147/83; BP 163/105; PULSE 74; PULSE 75; PULSE 87
[2024-09-22 16:58] VITALS: BMI 23.6
[2024-09-22] MEDS: LOVENOX SC (17:00)
--- NOTE | 2024-09-22 18:31 | CON.NEURO ---
Neuro Assessment/Plan
Assessment
Visual hallucinations little people, bugs typical of Parkinson's disease which she does have exam findings of
probably triggered in the setting of poor po intake, sleep, acute illness, etc which would make all neuro symptoms worse
spoke extensively with patient and dtr extensively this is something that has been developing over the past several years now becoming noticeable if she is sick or otherwise having a bad day, and may be expected with future episodes of illness;
would not treat the VH as they are now resolved. the motor symptoms don't bother her, I would not treat her for Parkinson's. agree trial low dose Remeron 7.5 mg HS to help with sleep
Consultation
Order
Date of Consultation: 09/22/24
Requesting Provider: Anamaria Chiang
Reason for Consult: visual hallucinations
Subjective/Objective
Subjective Data
Date of Service: September 22, 2024
from h&p:
Patient is an 83y F with PMH significant for IBS-D, hypertension and prior BioAVR who presents to ED complaining of weakness and confusion / hallucinations. History obtained from patient and family at the bedside. Patient able to provide
accurate history - albeit with rambling and occasionally tangential speech requiring redirection to stay on task. Patient has been seen in the ED here at each of the past three days. Prior visits presumably due to weakness and reported increase
in her usual diarrhea / IBS symptoms. Patient reports IBS symptoms since her 30s. Has had recent increase in symptoms off-and-on since January 2024 (COVID infection at that time).
Patient reports recent increase in loose stools - stating that she has been having diarrhea after every meal. As a result she has been somewhat hesitant to eat. She has been drinking fluids however.
She received IVFs in the ED during each visit and felt somewhat improved for a short time afterward.
Yesterday, she was seen in the ED by GI and started on cholestyramine. Stool studies were sent and are still pending at this time.
Patient took a dose of cholestyramine last PM and again this AM. She has not had loose stool (or other BM) since last PM.
She seemed to be doing fairly well this AM / earlier today; however, she became increasingly weak as the day wore on with increased difficulty getting around in the house.
This prompted them to return to the ED for further evaluation.
Patient / family also report that she has been having some visual hallucinations since this AM. She has seen people in her room, bugs on the floor, etc. This continues here in the ED.
Patient also notes cough over the past few days. No fevers / chills. No chest pain or dyspnea.
Today patient reports visual hallucinations, now resolved. reports tremors past few days, also now resolved. baseline ambulates with walker/cart in community due to back/knee pain.
dtr reports mental status improved but not back to baseline.
Objective Data
Vital Signs
Temp Pulse Resp BP Pulse Ox
36.9 C 80 16 127/74 97
09/22/24 15:05 09/22/24 15:05 09/22/24 15:05 09/22/24 15:05 09/22/24 15:05
Lab Results
09/21/24 05:46
09/22/24 06:01
Sodium 140 mmol/L (135-145) 09/22/24 06:01
Potassium 3.9 mmol/L (3.5-5.1) 09/22/24 06:01
BUN 11 mg/dl (7-17) 09/22/24 06:01
Glucose 88 mg/dl (70-99) 09/22/24 06:01
Calcium 9.9 mg/dl (8.4-10.2) 09/22/24 06:01
Phosphorus 2.5 mg/dl (2.5-4.5) 09/21/24 05:46
Vitamin B12 442 pg/ml (239-931) 09/21/24 15:03
Patient Allergies
codeine (Codeine) Allergy (Verified 09/19/24 09:44)
hyperactivity
simvastatin Allergy (Verified 09/19/24 09:44)
myalgia
seasonal allergies Allergy (Uncoded 09/19/24 09:44)
sneezing
Physical Exam
-
AAOx3, speech clear, language intact
VFF, EOMI, face symmetric
full strength b/l UE/LE, no pronator drift, no tremor
+bradykinesia
+mild cogwheel rigidity.
Medications
-
Active Medications
Generic Name Dose Route Start Last Admin
Trade Name Freq PRN Reason Stop Dose Admin
Acetaminophen 650 mg 09/20/24 23:21 09/22/24 03:54
Acetaminophen 325 Mg Tablet PO 10/18/24 23:20 650 mg
Q4HPRN PRN Administration
Mild Pain / Temp > 101
Amlodipine Besylate 2.5 mg 09/21/24 08:00 09/22/24 08:33
Amlodipine 2.5 Mg Tablet PO 10/19/24 07:59 2.5 mg
DAILY LANA Administration
Cholestyramine Resin 4 gram 09/21/24 09:00 09/22/24 08:34
Cholestyramine 4 Gram Packet PO 10/19/24 08:59 4 gram
DAILY@0900 LANA Administration
Enoxaparin Sodium 40 mg 09/21/24 18:00 09/22/24 17:00
Enoxaparin Sodium 40 Mg/0.4 Ml Syringe SC 10/19/24 17:59 Not Given
QPM LANA
Lisinopril 20 mg 09/21/24 08:00 09/22/24 08:34
Lisinopril 20 Mg Tablet PO 10/19/24 07:59 20 mg
DAILY LANA Administration
Metoprolol Tartrate 50 mg 09/21/24 08:00 09/22/24 08:33
Metoprolol 50 Mg Regular Release Tablet PO 10/19/24 07:59 50 mg
BID LANA Administration
Mirtazapine 7.5 mg 09/21/24 22:00 09/21/24 21:19
Mirtazapine 7.5 Mg Regular Release Tablet PO 10/19/24 21:59 7.5 mg
HS LANA Administration
Multivitamins Therapeutic 1 tablet 09/22/24 12:00 09/22/24 12:34
Multivitamin Tablet PO 10/20/24 11:59 1 tablet
DAILY LANA Administration
Sodium Chloride 0 flush 09/20/24 23:00
Sodium Chloride 0.9% (Flush) Syringe IV 10/18/24 22:59
PER PROTOCOL LANA
Thiamine HCl 100 mg 09/22/24 12:00 09/22/24 12:34
Thiamine 100 Mg Tablet PO 10/20/24 11:59 100 mg
DAILY LANA Administration
Home Medications
�Medication �Instructions �Recorded
amlodipine 2.5 mg tablet 2.5 mg PO DAILY Blood Pressure 01/01/23
cholestyramine 4 gram oral powder 4 g PO DAILY #201.6 grams 09/19/24
Lactobac no.2-Bifidobac no.1-S. 1 cap PO DAILY Supplement 09/20/24
thermo 112.5 billion cell capsule
(Visbiome)
hydrochlorothiazide 12.5 mg tablet 12.5 mg PO DAILY Blood Pressure 09/20/24
lisinopril 20 mg tablet 20 mg PO DAILY Blood Pressure 09/20/24
loperamide 2 mg tablet 2 mg PO TIDPRN PRN diarrhea 09/20/24
metoprolol tartrate 50 mg tablet 50 mg PO BID Blood Pressure 09/20/24
[2024-09-22] MEDS: REMERON 7.5 MG PO (21:59)
[2024-09-22 23:22] VITALS: BP 119/82
[2024-09-22 23:24] VITALS: BP 104/69; BP 119/82; BP 129/98; PULSE 78; PULSE 82; PULSE 83
[2024-09-23] MEDS: TYLENOL 650 MG PO ×2 (05:33→14:24)
[2024-09-23 05:44] VITALS: BMI 23.7
[2024-09-23 06:00] VITALS: BMI 23.7
[2024-09-23 07:05] VITALS: BP 150/90
[2024-09-23] MEDS: THERAGRAN 1 TABLET PO (07:46)
[2024-09-23] MEDS: VITAMIN B1 100 MG PO (07:46)
[2024-09-23] MEDS: LOPRESSOR 50 MG PO (07:46)
[2024-09-23] MEDS: ZESTRIL 20 MG PO (07:47)
[2024-09-23] MEDS: NORVASC 2.5 MG PO (07:47)
[2024-09-23] MEDS: QUESTRAN 4 GRAM PO (07:48)
--- NOTE | 2024-09-23 10:14 | CM ---
Addendum entered by Latha Benjamin 09/23/24 13:49:
GABRIELA spoke with son, Chris via phone; explained that [facility] received the Medicare Waiver. Son informed that ambulance machine operator picker was scheduled for 1829 today
Addendum entered by Latha Benjamin 09/23/24 13:45:
Ambulance machine operator picker scheduled for 1829
[facility]
Report # [phone]

Addendum entered by Latha Benjamin 09/23/24 13:43:
[facility] confirmed that they received Medicare Waiver approval
Addendum entered by Latha Benjamin 09/23/24 13:08:
Received a phone call from son, Chris; after speaking with his other siblings, he and his siblings are agreeable mother's discharge to [facility]
Confirmed with Sri that bed is available at [facility] today; Medicare Waiver process in progress; once facility receives approval, patient can be discharged
Plan: Discharge to [facility] today via ambulance
Ambulance request submitted to gunite nozzle operator
Addendum entered by Latha Benjamin 09/23/24 12:06:
[facility] reported that they do not have a bed available to accept patient; they have the application for LTC and will keep it on file
Territory Business Manager spoke with primary contact/Son to discuss alternative SNF site; son is not agreeable for his mother to go to [facility]. Son is considering taking mother home with 24/7 caregivers, and VN, PT/OT services
Multiple referrals sent via [facility]
Original Note:
Plan: Discharge to SNF pending bed availability today;
Territory Business Managercontact lens cutter [facility]; left a voice mail for Booker regarding referral decision and bed availability
[facility]; Attending Progress Note requested
--- NOTE | 2024-09-23 10:33 | W.PN.HOSP.TC ---
Today's Communication/Plan
-
Medically stable for discharge to rehab today.
Assessment / Plan
Assessment / Plan
83-year-old female admitted for weakness, confusion and hallucinations seeing people in the room and bugs on the floor
MRI of the brain-no acute acute abnormality
Awake alert and oriented x 3
She has good insight into what is going on with her
States that she has not much hallucinations yesterday.
Cardiovascular system S1-S2 appreciated
Chest clear to auscultation
Abdomen soft and nontender
No pedal edema
No facial droop, good strength bilateral upper extremity and lower extremity
# Hyponatremia sodium 129 on admission
Stop HCTZ and do not resume
Sodium better
# Hypokalemia-likely secondary to GI losses and diarrhea potassium improved. Magnesium 1.9
# Visual hallucinations of unclear etiology
Differential diagnosis of PRES syndrome due to elevated blood pressure versus underlying psychiatric disease or cognitive impairment such as dementia.
Will order brain MRI. CT head unremarkable, does show mild age-related atrophy.
Psychiatry consulted
Remeron 7.5 mg ordered per psychiatry
Normal TSH and B12 levels
B1 level pending.
Diet has been very restricted like brat diet very often because of her diarrhea
Continue multivitamin and thiamine replacements
Neurology evaluation appreciated.
Likely triggered in the setting of poor p.o. intake with underlying undiagnosed Parkinson disease. No treatment for Parkinson disease now. Physical therapy
Patient will benefit from rehab/SNF because of above reasons. Case management consulted.
# UTT-I-Clbmilui. Stool cultures negative so far
Colonoscopy January by Dr. Couch which showed diverticulosis and hemorrhoids biopsies were negative for microscopic colitis.
Patient was seen by GI in the ER on 09/19/2024.
Recommended symptomatic treatment with Pepto-Bismol or Imodium as needed. Patient declined dicyclomine.
Questran was prescribed
# Essential hypertension with hypertensive urgency
Blood pressure improved
Continue Norvasc but increase the dose to 5 mg daily., lisinopril, metoprolol
# Chronic thrombocytopenia-platelets are stable now.
# Bicuspid aortic valve with history of bio prosthetic AVR
# Ascending aortic aneurysm-4.1 cm
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
# Severe DDD throughout cervical, thoracic and lumbar spine
# Ex-smoker
# DVT prophylaxis-Lovenox
# Full code
Discussed with case management
Discussed with nursing
Patient will benefit from short-term rehab/SNF- Case management consulted.
time spent over 50 min
Part of this note was created using voice recognition system. Occasional wrong word or��sound alike� substitutions may have inadvertently occurred due to the inherent limitations of voice recognition software. If noted kindly bring it to my
attention for correction.
Anticipated Discharge: Today
Subjective/Interval History
-
Date of Service: September 23, 2024
Objective Data
-
Vital Signs:
Vital Signs
Temp Pulse Resp BP Pulse Ox
98.2 F 68 16 150/90 97
09/23/24 07:05 09/23/24 07:46 09/23/24 07:05 09/23/24 07:47 09/23/24 07:05
I&O
09/22/24 09/23/24 09/24/24
06:59 06:59 06:59
Intake Total 1790 / 1790 1560 / 1560
Balance 1790 / 1790 1560 / 1560
--- NOTE | 2024-09-23 12:35 | W.PN.UPDATE ---
Update Note
Progress Note Update
Patient seen on follow up for psychiatry, chart reviewed. Ms. Up reports VH have resolved. She feels good after speaking to Neurology and having a better understanding of her symptoms. She reports she slept good since starting the Remeron. Denies
any side effects. No daytime sleepiness reported. She thought she may have seen a bug yesterday but was quickly able to challenge that and then no longer saw anything.
Impression/Recommendations: Visual hallucinations likely related to Parkinson's disease - continue Remeron for sleep. Psych will sign off. Call or reconsult with any new or immediate concerns.
--- NOTE | 2024-09-23 14:35 | W.DS.TRANS ---
Addendum entered and electronically signed by Anamaria Chiang MD 09/23/24 17:00:
Dictation- [id number]
Original Note:
DC Summary - Retort Pre Cooker
-
Discharge Instructions:
Discharge Diagnosis/Procedures Hyponatremia
Hypokalemia
Visual hallucinations
IBS-D
Hypertension
Chronic thrombocytopenia
Bicuspid aortic valve status post bioprosthetic
AVR
Ascending aortic aneurysm 4.1 cm
History of breast cancer
Severe DDD cervical thoracic and lumbar spine
Diet As tolerated
Activity As tolerated,With assistance
Driving Restrictions No driving
Other Services PT,OT
Instructions:
Stand-Alone Forms:
Changes to Home Medications: Yes
Discharge Medications:
DC Medications w/original date entered in [employer]
Lactobac no.2-Bifidobac no.1-S. thermo 112.5 billion cell capsule (Visbiome) 1 cap PO DAILY Supplement 09/20/24
lisinopril 20 mg tablet 20 mg PO DAILY Blood Pressure 09/20/24
loperamide 2 mg tablet 2 mg PO TIDPRN PRN diarrhea 09/20/24
metoprolol tartrate 50 mg tablet 50 mg PO BID Blood Pressure 09/20/24
amlodipine 2.5 mg tablet 5 mg (2 x 2.5 mg) PO DAILY Blood Pressure #0 tabs 09/23/24
cholestyramine 4 gram oral powder 4 g PO DAILY@1300 Gastrointestinal issue #201.6 grams 09/23/24
mirtazapine 7.5 mg tablet 7.5 mg PO HS Sleep #0 tabs 09/23/24
multivitamin with folic acid 400 mcg tablet (Tab-A-Ángel) 1 tab PO DAILY Supplement #0 tabs 09/23/24
thiamine mononitrate (vit B1) 100 mg tablet 100 mg PO DAILY Supplement #30 tabs 09/23/24
Home Medication Changes
new
mirtazapine 7.5 mg tablet 7.5 mg PO HS Sleep #0 tabs 09/23/24
multivitamin with folic acid 400 mcg tablet (Tab-A-Ángel) 1 tab PO DAILY Supplement #0 tabs 09/23/24
thiamine mononitrate (vit B1) 100 mg tablet 100 mg PO DAILY Supplement #30 tabs 09/23/24
Pending Results: Yes (B1 level)
[2024-09-23 15:51] VITALS: BP 128/69; BP 129/83; BP 135/78; PULSE 71; PULSE 72; PULSE 82
--- NOTE | 2024-09-23 17:31 | PTCARENOTE ---
discharge report called to [facility] this evening at 1727 to [phone]. son and daughter also made aware of 1830 discharge time. IV access removed and belongings packed.
== END 2024-09-23 19:12 ==
LOC: 2 NORTH 22:32
PROVIDERS: Registered Nurse; Student in an Organized Health Care Education/Training Program; ADMITTING PHYSICIAN Hospitalist; ATTENDING PHYSICIAN Hospitalist; CONSULT PHYSICIAN Psychiatry & Neurology Clinical Neurophysiology; EMERGENCY PHYSICIAN Emergency Medicine; OTHER PHYSICIAN Psychiatry & Neurology Psychiatry
DX: E87.1 Hypo-osmolality and hyponatremia (principal); R41.82 Altered mental status, unspecified; I10 Essential (primary) hypertension; G47.30 Sleep apnea, unspecified; K58.0 Irritable bowel syndrome with diarrhea; E78.5 Hyperlipidemia, unspecified; F41.9 Anxiety disorder, unspecified; R11.0 Nausea; G92.8 Other toxic encephalopathy; J30.2 Other seasonal allergic rhinitis; E87.6 Hypokalemia; R26.2 Difficulty in walking, not elsewhere classified; R05.3 Chronic cough; R94.31 Abnormal electrocardiogram [ECG] [EKG]; D69.6 Thrombocytopenia, unspecified; F31.9 Bipolar disorder, unspecified; M50.30 Other cervical disc degeneration, unspecified cervical region; M51.369 Other intervertebral disc degeneration, lumbar region without mention of lumbar back pain or lower extremity pain; M51.34 Other intervertebral disc degeneration, thoracic region; R44.1 Visual hallucinations; K21.9 Gastro-esophageal reflux disease without esophagitis; I71.21 Aneurysm of the ascending aorta, without rupture; K64.9 Unspecified hemorrhoids; K57.30 Diverticulosis of large intestine without perforation or abscess without bleeding; I16.0 Hypertensive urgency; E78.00 Pure hypercholesterolemia, unspecified; I27.20 Pulmonary hypertension, unspecified; Z85.3 Personal history of malignant neoplasm of breast; Z95.3 Presence of xenogenic heart valve; Z90.49 Acquired absence of other specified parts of digestive tract; Z90.12 Acquired absence of left breast and nipple; Z86.16 Personal history of COVID-19; Z88.5 Allergy status to narcotic agent; Z88.8 Allergy status to other drugs, medicaments and biological substances; Z79.899 Other long term (current) drug therapy; Z60.2 Problems related to living alone; Z87.891 Personal history of nicotine dependence; Z98.51 Tubal ligation status; Z17.32 Human epidermal growth factor receptor 2 negative status; Z17.21 Progesterone receptor positive status; Z17.0 Estrogen receptor positive status [ER+]
CPT/HCPCS: 70450; 70551; 71046; 80048; 80053; 81003; 82248; 82306; 82607; 83605; 83735; 83935; 84100; 84300; 84425; 84484; 85025; 85027; 93005; 96360; 97163; 97167; 99285; G0378

== ENCOUNTER 2024-10-03 16:11 | Inpatient (IN) | payer MEDICARE, OTHER, SELFPAY ==
[2024-10-02 15:37] VITALS: BP 146/93
[2024-10-02 16:00] VITALS: BP 138/84
--- NOTE | 2024-10-02 16:07 | ED.GENMED ---
History of Present Illness
General
Chief Complaint: Change in Mental Status
Time Seen by Provider: 10/02/24 15:45
History of Present Illness
History of Present Illness:
Spoke with Jordyn---First presented last week, was alert, 'fine', but beginning of this week ex. Sunday, pt noted to have a mental status change. They did labs/ua, dx'd with UTI and chest infection, put on fosfomycin for one day, and then
prednisone 10 mg qd. Descxribed as not following directions, trying to ge tout of bed frequenty, not cooperaqting, not wanting ot take her medications. No n/v. No fevers. History very challenging to obtain directly from patient, she does not
describe why she is here, and insist on meeting with legal administrative assistant a case today (who is no longer employed here'. I asked how I could help her, and she states that she just does not want to be here. She is unaware of the month or her location.
She does recall that she has 5 children. Her only physical complaint is that of a dry mouth. She denies headache, neck pain, chest pain, shortness of breath, nausea, vomiting, anorexia, or other complaints.
Past History
Past History
ED Past Medical History: GERD, HTN, Hypercholesterolemia, Psychiatric (Anxiety), Other (Grade 1 breast cancer,), Other (Pulmonary hypertension) and Other (IBS)
ED Past Surgical History: Cardiac (Aortic valve replacement 2014), Cholecystectomy and Gynecological (Left mastectomy)
Social History
Tobacco: Non-smoker
Alcohol: None
Drug: None
Personal: Other
Living: other
Employment: Other
Family History
Family History: Other
Phy Exam
Physical Exam
Physical Exam:
GENERAL: Alert , in no apparent distress
EYE: pupils equal and reactive, no photophobia
NECK: Supple, no significant adenopathy.
ENT: o/p clr, mm dry, no oral lesions noted.
CARDIAC: Regular rate and rhythm .
LUNGS: Clear breath sounds bilaterally, no acute respiratory distress, no wheezes/rales/rhonchi
ABDOMEN: Soft, without focal tenderness, no r/g, no cvat
NEUROLOGICAL: Alert and oriented to person only, no focal neuro deficits, motor 5 out of 5, sensory intact, speech clear, cranial nerves II through XII intact
SKIN: Warm and dry, skin intact.
MUSCULOSKELETAL: No edema, well perfused.
PSYCH: Normal and appropriate interaction.
Course
Orders/Labs/Results
Orders:
Orders
10/02/24 Breakfast
Regular
At Your Request: Non-Participating
10/02/24 16:06
Electrocardiogram (*1) Stat
Reason for Study: Other
Other Reason for Exam: chest pain
CT Head W/o Iv Contrast Urgent
Comment:
Reason For Exam: ms change
Cardiac Monitoring- Treatment ONCE
EKG- Treatment ONCE
10/02/24 16:07
Urinalysis Reflex To Culture Urgent
Date Specimen was Collected: 10/02/24
Time Specimen was Collected: 16:26
10/02/24 16:35
Basic Metabolic Panel Urgent
Complete Blood Count/No Diff Urgent
Troponin I Urgent
Vitamin B12 Urgent
Comment: ADD ON
10/02/24 17:29
Add On- LAB Urgent
Tests Added?: vit b12
10/02/24 17:31
Magnesium Urgent
Potassium Urgent
10/02/24 18:32
0.9% Sodium Chloride 500 ml [Nss] 500 ml IV BOLUS
10/02/24 19:32
Admit/Transfer Patient As Directed
Co-Sign Provider:
Level of Care: Observation services
Assign to:: Medical/Surgical
Physician / Group: Lise
Diagnosis: Change in Mental Status
PRN Pain Medication Management As Directed
May give lesser potent ordered pain med per pt: Yes
preference::
Protocol:: Medication orders for pain may be administered in a
manner that supports deferring to patient preference
when the pt is:
- Requesting an ordered lesser potent pain medication.
Least to most potent pain medications are defined
as: acetaminophen < NSAID < tramadol < opioids
(morphine, oxycodone, hydromorphone).
- Requesting a lesser dose of the same medication IF
ORDERED.
- Requesting a less intrusive route of administration
if both routes are prescribed by the provider (PO <
IV).
10/02/24 19:34
Code Status As Directed
Resuscitation Status: Do not resuscitate
Reached after discussion with pt or family/Healthcare POA: Yes
DNR Bracelet Application ONCE
10/02/24 21:13
Acetaminophen [Tylenol] 650 mg PO Q4HPRN PRN
Metoprolol [Lopressor] 50 mg PO BID
10/02/24 21:13
Case Management Consult Once
Case Management Consult: Discharge Planning
Activity As Directed
Activity Level: Out of Bed-Early Mobility
With Assistance
Vital Signs As Directed
Frequency: Per unit guidelines
Ot Eval And Treat Routine
Pt Eval And Treat Routine
Activity Level: Out of Bed-Early Mobility
DX Deep Vein Thrombosis Video Routine
10/02/24 22:00
Mirtazapine [Remeron] 7.5 mg PO HS
10/03/24 06:00
Basic Metabolic Panel IN AM
Complete Blood Count/No Diff IN AM
10/03/24 08:00
Amlodipine [Norvasc] 5 mg PO DAILY
Lactobac/Bifidobac [Visbiome] 1 cap PO DAILY
Lisinopril [Zestril] 20 mg PO DAILY
Multivitamin [Theragran] 1 tablet PO DAILY
Saccharomyces Boulardii [Florastor] 250 mg PO DAILY
Thiamine HCl [Vitamin B1] 100 mg PO DAILY
10/03/24 13:00
Cholestyramine [Questran] 4 gram PO DAILY@1300
10/03/24 18:00
Enoxaparin Sodium [Lovenox] 40 mg SC QPM
Abnormal Lab Results
10/02/24
16:35
WBC 11.7 H 10^3/uL
(4.8-10.8)
MCHC 32.4 L g/dL
(33.0-37.0)
MPV 12.8 H fL
(7.4-10.4)
Chloride 111 H mmol/L
(98-107)
BUN 42 H mg/dl
(7-17)
Creatinine 0.5 L mg/dL
(0.6-1.0)
Calcium 10.4 H mg/dl
(8.4-10.2)
10/02/24 16:35
10/02/24 17:31
Vital Signs
Initial and Last Documented VS:
Initial Vital Signs
Temp Pulse Resp BP Pulse Ox
98.3 F 107 18 146/93 95
10/02/24 15:37 10/02/24 15:37 10/02/24 15:37 10/02/24 15:37 10/02/24 15:37
Last Documented Vital Signs
Temp Pulse Resp BP Pulse Ox
98.1 F 71 18 135/85 99
10/03/24 07:18 10/03/24 07:18 10/03/24 07:18 10/03/24 07:18 10/03/24 07:18
*Pulse Oximetry
SaO2: 95
Oxygen Mode of Delivery: Room air
Patient hypoxic: no
*Critical Care Note
Total Time (30-74mins, 75-104mins- exclusive of procedures): 31
Update Note
Update Note:
Patient presents to the Emergency Department with ___reported change in mental status
Number and Complexity of Problems Addressed at the Encounter
� Chronic conditions affecting care:
� Acute Exacerbation and/or Progression of Chronic Illness:
� Differential Diagnosis includes: But not limited to dementia, Parkinson's related symptoms, electrolyte disorder, UTI, etc. etc.
Amount and/or Complexity of Data to be Reviewed and Analyzed
� I performed an independent evaluation of and my interpretation is:
EKG: Read by me, normal sinus rhythm, LAD, no acute ischemia
CT:No CT evidence for acute intracranial hemorrhage or transcortical infarct.
2. Mild to moderate diffuse cerebral volume loss.
3. Mild cerebellar volume loss.
4. Mild periventricular white matter leukoaraiosis.
5. Small chronic lacunar infarcts in the right basal ganglia and right external capsule.
Xrays:
Laboratory Studies: Prerenal azotemia, mild leukocytosis which I would consider nonspecific particularly in the absence of infectious symptoms signs and afebrile. Patient uncooperative with offering a urine sample
Other:
� Review of other/old records reveals: Patient was admitted around the time of September 23 of this year with hallucinations thought to be related to hyponatremia, hypokalemia and possible Parkinson's
� Clinical information was obtained by an independent historian: History obtained from Laisha REED at [facility] as patient is unable to provide full history
� Prescriptions/Medications Considered but not given:
� Further testing considered but not performed:
Risk of Complications and/or Morbidity or Mortality of Patient Management
� Social determinants of health affecting care:
� Discussion with other providers (PCP, Hospitalists, Consultants, etc):
� Escalation of care including admission/observation vs risk of discharge considered: Long discussion with family. Plan is to keep overnight in the hospital under observation, IV fluids, case management evaluation in the morning.
ED Attending Note
-
Portions of this chart may have been created with voice recognition software.� Occasional wrong word or��sound alike� substitutions may have occurred due to the inherent limitations of voice recognition software.
Discharge Plan
Departure
Patient Disposition: Admit
Date of Disposition: 10/02/24
Time of Disposition: 19:11
Admit to: Med/Surg
Presentation/result/management discussed w/ accepting MD/DO: Hospitalist
Discharge Problem:
Change in mental state, Dehydration
Interventions
Interventions:
*Risk Screen - Suicide Last Done: 10/02/24 21:15
*General Assessment Last Done: 10/02/24 15:37
*Neglect/Abuse Screening Last Done: 10/02/24 15:37
*ED- Fall Risk Assessment Last Done: 10/02/24 15:37
*ED COVID-19 Vaccine History Last Done: 10/02/24 15:37
*Nursing Disposition Last Done: 10/02/24 20:52
ED- Pulmonary Assessment Last Done: 10/02/24 19:22
ED-Psychological Assessment Last Done: 10/02/24 19:22
ED- Neurological Assessment Last Done: 10/02/24 19:22
Discharge Date and Time
Discharge Date/Time: 10/02/24 20:58
[2024-10-02 16:47] LABS: Hematocrit 42.9 % (37.0-47.0); Hemoglobin 13.9 g/dL (12.0-16.0); Mean Corp Hgb Conc. 32.4 g/dL (33.0-37.0); Mean Corpuscular Volume 91.1 fL (81.0-99.0); Platelet Count 160 10^3/uL (130-400); Red Cell Dist. Width 13.4 % (11.5-14.5)
[2024-10-02 17:00] VITALS: BP 147/86
[2024-10-02 17:08] LABS: Troponin I 0.014 ng/ml
[2024-10-02 17:11] LABS: Blood Urea Nitrogen 42 mg/dl (7-17); Calcium 10.4 mg/dl (8.4-10.2); Carbon Dioxide 26 mmol/L (22-30); Chloride 111 mmol/L (98-107); Glucose 87 mg/dl (70-99); Sodium 143 mmol/L (135-145); eGFR > 60.00
[2024-10-02 17:57] LABS: Magnesium 2.3 mg/dl (1.6-2.3); Potassium 3.5 mmol/L (3.5-5.1)
[2024-10-02 19:09] LABS: Vitamin B12 506 pg/ml (239-931)
--- NOTE | 2024-10-02 19:36 | HPS.HSE ---
Family Physician
-
Family Physician:
Chief Complaint
-
Change in Mental Status
History of Present Illness
Patient is an 83 y/o past medical history of hypertension, irritable bowel syndrome and recently diagnosed Parkinson's disease with visual hallucinations who presents with increased agitation. History is obtained from patient's family at the
bedside. Patient was recently admitted to [facility] from September 20 to September 23, and then discharged to [facility] for rehab. Family noted since going to [place] patient has been getting more agitated. They note she has been
refusing her medications and getting more paranoid.
Medical History
Past Medical History
Past Medical History: Reports Other
Additional Past Medical History:
Parkinson's Disease
Visual Hallucinations
Essential Hypertension
Breast Cancer
Bicuspid Aortic Valve
IBS-D
Anxiety / Depression
Past Surgical History: Reports Other
Additional Past Surgical History:
Cholecystectomy
BioAVR
Left Lumpectomy
Tubal Ligation
Social History
Tobacco: Non-smoker
Alcohol: None
Drug: None
Living: Alone
Family History
Family History: Not pertinent
Allergies / Home Medications
Allergies reflects when Allergies were last updated in [facility].
Home Medications with original date entered in [facility]
Allergy/Medication List:
Allergies
Allergy/AdvReac Type Severity Reaction Status Date / Time
codeine (Codeine) Allergy hyperactivi Verified 09/19/24 09:44
ty
simvastatin Allergy myalgia Verified 09/19/24 09:44
seasonal allergies Allergy sneezing Uncoded 09/19/24 09:44
Home Medications
Lactobac no.2-Bifidobac no.1-S. thermo 112.5 billion cell capsule (Visbiome) 1 cap PO DAILY Supplement 09/20/24
lisinopril 20 mg tablet 20 mg PO DAILY Blood Pressure 09/20/24
loperamide 2 mg tablet 2 mg PO TIDPRN PRN diarrhea 09/20/24
metoprolol tartrate 50 mg tablet 50 mg PO BID Blood Pressure 09/20/24
cholestyramine 4 gram oral powder 4 g PO DAILY@1300 Gastrointestinal issue #201.6 grams 09/23/24
mirtazapine 7.5 mg tablet 7.5 mg PO HS Sleep #0 tabs 09/23/24
multivitamin with folic acid 400 mcg tablet (Tab-A-Ángel) 1 tab PO DAILY Supplement #0 tabs 09/23/24
thiamine mononitrate (vit B1) 100 mg tablet 100 mg PO DAILY Supplement #30 tabs 09/23/24
Saccharomyces boulardii 250 mg capsule (Florastor) 250 mg PO DAILY 10/02/24
amlodipine 5 mg tablet 5 mg PO DAILY 10/02/24
prednisone 10 mg tablet 10 mg PO DAILY 10/02/24
Review of Systems
-
Unable to obtain full review of systems at this time due to: Other (Patient does not answer all questions appropriately)
Physical Exam
Vital Signs
Vital Signs
Temp Pulse Resp BP Pulse Ox
98.3 F 86 15 147/86 96
10/02/24 15:37 10/02/24 19:15 10/02/24 19:15 10/02/24 17:00 10/02/24 17:15
Physical Exam
General: Well Developed and Well Nourished
HEENT: NormoCephalic, Anicteric and Other (Mucous Membranes seem dry)
Respiratory: Clear and Non Labored Respirations
Cardiac: S1/S2, Regular Rhythm and Murmur
GI: Soft
Rectal: Deferred by Provider
Genito-urinary: Deferred by me
Musculoskeletal: No Clubbing and No Cyanosis
Skin: Warm and Dry
Neuro: Awake, Alert and Other (Appears to move all four extremities appropriately; Patient is not cooperative with full neurologic evaluation)
Psych: Confused and Other (Easily Agitated)
Laboratory Results
-
10/02/24 16:35
10/02/24 17:31
Laboratory Results
Total Bilirubin Cancelled 10/02/24 16:35
AST Cancelled 10/02/24 16:35
ALT Cancelled 10/02/24 16:35
Alkaline Phosphatase Cancelled 10/02/24 16:35
Troponin I 0.014 ng/ml 10/02/24 16:35
Data Reviewed
-
CT Scan: Report Reviewed by me
Lab Data: Labs Reviewed by me
Old Records: Reviewed
Impression/Plan
-
Increased Confusion with Increased Agitation and Paranoia
-Consult Psych
-Attempt to resume Remeron from prior admission
-Will add Haldol PRN for severe agitation
-Await urinalysis to evaluate for possible UTI that may be affecting her mentation
-Long discussion with family - If possible they would like to take her home with home care as patient has expressed her wish to return to her apartment - Consult Case Management
Parkinson's Disease with Visual Hallucinations
-Patient evaluated by Neurology last admission and decision was made not to start medication
Essential Hypertension
-Continue amlodipine, lisinopril and metoprolol
Irritable Bowel Syndrome - Diarrhea predominant
-Continue probiotics and cholestyramine
DVT proph: Lovenox
Code Status: DNR - Confirmed with family at the time of admission
[2024-10-02 21:21] VITALS: BP 138/83; BMI 22.6
--- NOTE | 2024-10-02 21:21 | W.PN.UPDATE ---
Update Note
Progress Note Update
patient seen and examined independently
Please see PA note for full details
83 y/o woman with increased agitation. History is obtained from patient's family. Family states she has been refusing her medications and getting more paranoid.
Past Medical History
Parkinson's Disease
Visual Hallucinations
Essential Hypertension
Breast Cancer
Bicuspid Aortic Valve
IBS-D
Anxiety / Depression
Decreased brain volume seen on CT
Cholecystectomy
BioAVR
Left Lumpectomy
Tubal Ligation
Physical Exam
General: Well Developed and Well Nourished
Skin: Warm and Dry
Neuro: Awake, Alert and Other (Appears to move all four extremities appropriately; Patient is not cooperative with full neurologic evaluation)
Psych: Confused and Other (Easily Agitated)
A/P:
1. Increased Confusion with Increased Agitation and Paranoia
-Consult Psych
-resume Remeron from prior admission
-Haldol PRN for severe agitation
-UA to evaluate for possible UTI
-alf plan discussion with family - Consult Case Management
2. Parkinson's Disease with Visual Hallucinations
-Patient evaluated by Neurology last admission and decision was made not to start medication
Please see PA note for further details.
[2024-10-02] MEDS: LOPRESSOR 50 MG PO (21:49)
[2024-10-02] MEDS: REMERON 7.5 MG PO (21:49)
--- NOTE | 2024-10-02 23:11 | PTCARENOTE ---
Addendum entered by Annette Schultz RN 10/03/24 00:37:
Pt unable to answer many of the admission questions. no family present
Addendum entered by Annette Schultz RN 10/03/24 00:08:
#14 FR agosto placed per order. draining clear yellow urine.
Original Note:
Rec'd pt from ER. pt slid over in to the bed as Rn was unable to get from patient if she could walk. She denied pain. She is oriented to herself and place. She allowed vital signs and assessment. She refused to be straight cathed in the ER. Rn
bladder scanned her for greater than 700ml. When RN explained that she would need to get an order to straight cath her the patient said RN could not touch her or she would call the police. Mylene SINGH aware. Ordered to give her prn haldol and
she would come up to see her.
[2024-10-02] MEDS: HALDOL 1 MG IV (23:17)
[2024-10-03] VITALS (22 sets, daily range): BP systolic 100–145; BP diastolic 54–104; PULSE 81; O2SAT 95; BMI 22.7
--- NOTE | 2024-10-03 04:18 | PTCARENOTE ---
pt awake and pulling at agosto catheter. multiple attempts made to orient patient without success. Mylene SINGH aware and will place order for bilateral Mitts to be placed. Pt with bruise to right forearm from hitting arm on side rail when
agitated earlier in the shift.
--- NOTE | 2024-10-03 09:14 | W.PN.HOSP.TC ---
Today's Communication/Plan
-
F/w psych recommendations
Send for urine test, she has Yin
Assessment / Plan
Assessment / Plan
Physical Exam
General: Well Developed and Well Nourished. Not in distress.
HEENT: Normocephalic, Anicteric and Other (Mucous Membranes seem dry)
Respiratory: Clear and Non Labored Respirations
Cardiac: S1/S2, Regular Rhythm and + Murmur
GI: Soft, non tender.
Genito-urinary: + Yin, no hematuria.
Musculoskeletal: No Clubbing and No Cyanosis
Skin: Warm and Dry
Neuro: Awake, Alert and Other (Appears to move all four extremities appropriately; Patient is not cooperative with full neurologic evaluation)
Psych: Confused, dementia and Other (Easily Agitated)
Increased Confusion with Increased Agitation and Paranoia
-Consult Psych
-Attempt to resume Remeron from prior admission
-Will add Haldol PRN for severe agitation
-Await urinalysis to evaluate for possible UTI that may be affecting her mentation
-Long discussion with family - If possible they would like to take her home with home care as patient has expressed her wish to return to her apartment - Consult Case Management
# Acute urinary retention
s/p Yin
Parkinson's Disease with Visual Hallucinations
-Patient evaluated by Neurology last admission and decision was made not to start medication
Essential Hypertension
-Continue amlodipine, lisinopril and metoprolol
Irritable Bowel Syndrome - Diarrhea predominant
-Continue probiotics and cholestyramine
DVT proph: Lovenox
Code Status: DNR - Confirmed with family at the time of admission
Total time spent to see the patient, examine the patient, review data and lab result, discuss treatment plan with patient, nursing staff around 55 minutes
Anticipated Discharge: > 48 hours
Subjective/Interval History
-
Date of Service: October 03, 2024
No chest pain
No abdominal pain
Objective Data
-
Labs:
Laboratory Results
10/03/24
06:00
WBC Pending
Hgb Pending
Hct Pending
Plt Count Pending
Sodium Pending
Potassium Pending
Chloride Pending
Carbon Dioxide Pending
BUN Pending
Creatinine Pending
Glucose Pending
Calcium Pending
Vital Signs:
Vital Signs
Temp Pulse Resp BP Pulse Ox
98.1 F 71 18 135/85 99
10/03/24 07:18 10/03/24 07:18 10/03/24 07:18 10/03/24 07:18 10/03/24 07:18
I&O
10/02/24 10/03/24 10/04/24
06:59 06:59 06:59
Intake Total 120 / 120
Output Total 950 / 950
Balance -830 / -830
[2024-10-03] MEDS: NORVASC 5 MG PO (09:47)
[2024-10-03] MEDS: LOPRESSOR 50 MG PO (09:48)
[2024-10-03] MEDS: ZESTRIL 20 MG PO (09:48)
[2024-10-03] MEDS: FLORASTOR 250 MG PO (09:48)
[2024-10-03 10:29] LABS: Urine Character Clear (Clear)
[2024-10-03 10:49] LABS: Urine Squamous Cell 0-2 /LPF (Few)
[2024-10-03 10:50] LABS: Urine White Cell 40-50 /HPF (0-5)
[2024-10-03 11:16] LABS: Hematocrit 44.2 % (37.0-47.0); Hemoglobin 14.2 g/dL (12.0-16.0); Mean Corp Hgb Conc. 32.1 g/dL (33.0-37.0); Mean Corpuscular Volume 91.1 fL (81.0-99.0); Platelet Count 169 10^3/uL (130-400); Red Cell Dist. Width 13.2 % (11.5-14.5)
[2024-10-03 11:24] LABS: Blood Urea Nitrogen 35 mg/dl (7-17); Calcium 9.9 mg/dl (8.4-10.2); Carbon Dioxide 27 mmol/L (22-30); Chloride 111 mmol/L (98-107); Estimated Creatinine Clearance 55 ml/min; Glucose 92 mg/dl (70-99); Potassium 3.7 mmol/L (3.5-5.1); Sodium 144 mmol/L (135-145); eGFR > 60.00
--- NOTE | 2024-10-03 13:26 | CON.MD ---
Consultation - Medical
-
patient seen chart reviewed. this consult was done on october 03 2024 which is today. spoke with nursing and met with four of patient's five children afterward. the patient is an 83 year old woman who was here at at the end of august for confusion and
visual mishra. neurology saw her as well and dx early PD. she also was noted to be hyponatremic. the hallucinations stopped. she was rx only w remeron 7.5 mg for sleep. she reported poor sleep for some time. she was sent to [facility] for PT
but did not do well there. she told me she did not need the PT they were recommending. she also stopped taking many of her medications. family says she never liked taking meds. she is ibs/d and stopped eating rationalizing if she did not eat she
would not have diarrhea. at the time of admit to this time for 'mental status changes' she had ketonuria (3+)and bun of 42 reflecting her lack of food and drink. the patient had periods of agitation last evening and was wearing mitts when i saw
her for fear she wuold pull out her iv. she was quite pleasant when i spoke with her for about a half hour answering all of my questions generally appropriately but i also felt she may have been somewhat guarded although nothing obvious emerged.
she did take her meds this am and her nurse reported her to be cooperative. she announced that she was 'not depressed or anxious'. she said she did not take remeron for sleep bc she did not need to. she did not tell me she had eaten very litle in
the past two weeks and said appetite ok if ibs was not acting up. she was not suicidal. there was not overt psychosis. the one thing patient could not tell me which she should have been able to tell me was why she was here which given her +
presentation otherwise gives one pause.
past psych hx patient has no prior psych hx
medical hx early PD htn lymphedema l arm left breast cancer w mastectomy aortic valve replaced ibs-D hld gerd pulmonary htn ibc bun down to 35 urine culture pending b12 okay vit d low nl cxr no acute mri cat brain no acute changes, atrophy
white mater changes tsh ok ecg some w prolonged qtc recently currently qtc 476 reports weak right leg and foot
fh non contributory
substance abuse none
social hx thirteen years ago. 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
mse pleasant and interactive although i did sense some guardedness (she could not tell me why she was here.) speech and thought process nl no overt psychosis affect ok mood is neutral no si aver intelligence insight / judgment lacking given hx by
family fully oriented knows president and surprised me with her knowledge of ibs....
dx r/o underlying psychosis ?TME secondary to lack of food and drink/dehydration? possible uti culture pending
plan i did tell the famliy i would stop by later this week to discuss with her the issue of meds. for now if patient gets agitated and angry left a prn of zyprexa /zydis 2.5 mg q 12 h would avoid haldol given hx of PD. asked nsg if they could
remove mitts for the afternoon and see how she does. disposition may be an issue as snf not working out and family does not feel patient can go home. check folate which i don't see on the chart. will follow
[2024-10-03] MEDS: QUESTRAN 4 GRAM PO (13:45)
[2024-10-03] MEDS: STERILE WATER FOR INJECTION 10 ML IV (13:46)
[2024-10-03] MEDS: ROCEPHIN 1000 MG IV (13:46)
--- NOTE | 2024-10-03 15:16 | CM ---
Addendum entered by Alia Abraham 10/03/24 15:53:
Spoke w/ Samantha/[facility] [phone], confirmed she has been in contact w/ patient's son this morning.
Requesting referral to be faxed to [phone], referral faxed.
Original Note:
Initial assessment completed. Patient is an 83 y/o past medical history of hypertension, irritable bowel syndrome and recently diagnosed Parkinson's disease with visual hallucinations who presents with increased agitation. Patient admitted from
[facility].
Patient resides alone in a [address] fl[address] apartment, elevator access. Patient prev independent, recent use of a rollator at home. Recent assistance w/ personal care, grooming, toileting. Patient's daughter assists patient a few days a week w/ meal prep.
Patient has 5 supportive kids who are involved in her care.
Patient admitted from [facility]. No HC hx reported.
Address, points of contact and insurance verified
PCP: Walter Ko
Patient admitted as obs. [facility] form verbally reviewed, copy provided to family, copy on chart
Therapy currently rec SNF at d/c. CM had long discussion w/ patient's 2 sons and daughter in law about potential termite exterminator helper plan for patient. Patient noted to have been refusing medication at rehab and being uncooperative. Family explained to CM that
prior to patient admitting to [facility], she was not taking her medication at home. Patient has recent dx of Parkinson's disease and unspecified dementia. Family is unsure that if patient goes to SNF again she will not be cooperative w/ PT and
medication. At this time, family is saying that patient is wanting to go home, CM discussed home support of aides and caregivers, family aware that is private pay. Family stated they have LTC apps for [facility] and [facility] but
no decision for LTC has been made at this time. Family aware that patient does not qualify for Medicaid at this time due to her having $600,000 currently. Family shared they've been exploring palliative care and spoke w/ Samantha at [facility] who shared
they will need a referral from CM first before patient can be assessed. At this time, patient's sons still need to discuss options and plan w/ their other siblings but it does not sound like they will be agreeable to SNF at d/c. Family is hoping
that patient progresses w/ PT and be appropriate for home PT. Family is hoping once patient's UTI clears, her mental status will improve. Ultimately, family is concerned that patient is not taking her medications, home or SNF, and will continue to
come to the hospital. Family is not wanting patient to return home alone.
Plan: Home w/ support vs SNF. Family to discuss best d/c plan for patient
CM will place referral to [facility]
CM will cont to follow for d/c planning
--- NOTE | 2024-10-03 16:12 | W.PN.UPDATE ---
Update Note
Progress Note Update
returned to see patient after talking to family again this afternoon. one of patient's daughters felt that patient really does go in and out of intact cognition. apparently an old family friend visited today and she did not know her but on the other
hand d has had some reasonable conversations with her as well. i do not doubt there is some cognitive decline. there may be underlying paranoia as well given patient's refusal to take meds reliably although she did take them for her nurse this am
and her refusal to eat. given her agitation last evening would approach with some seroquel but very slowly. have ordered 12.5 mg q hs and dc'ed remeron which patient refuses to take anyway. i did discuss with patient this afternoon why she has
refused meds and had not been eating. i did not get a straight answer but she said she would take meds tonight after i explained what each med was for. family is discussing where to go from here re disposition. will suggest that psych production control coordinating clerk
tomorrow do a moca with patient.
--- NOTE | 2024-10-03 16:40 | PTOTSP ---
Speech Therapy Evaluation:
Pt with chronic risk factors of dysphagia including Parkinson's and questionable cognitive impairment, compounded by change in mental status with confusion, agitation, and paranoia. At bedside, pt demonstrated prolonged, harsh coughing episode with
initial sip of thin liquid via cup. Noted ongoing signs and symptoms with subsequent PO trials (thins, puree, regular), though unable to determine if related to initial episode vs new episode. Pt then demonstrated runny nose and watery eyes. PO
trials d/c due to safety concerns with ongoing coughing.
Recommend:
1. NPO
2. VSE
3. Further recommendations pending VSE
[2024-10-03 16:46] LABS: Folate > 20.0 ng/ml (2.76-20)
[2024-10-03 17:07] LABS: Glucose - Point of Care 124 mg/dl (70-99)
[2024-10-03 17:28] LABS: Hematocrit 45.0 % (37.0-47.0); Hemoglobin 14.4 g/dL (12.0-16.0); Mean Corp Hgb Conc. 32.0 g/dL (33.0-37.0); Mean Corpuscular Volume 91.5 fL (81.0-99.0); Platelet Count 201 10^3/uL (130-400); Red Cell Dist. Width 13.4 % (11.5-14.5)
[2024-10-03 17:32] LABS: B.E. 0.7 mmol/L; HCO3 25.4 mmol/L (21-28); O2 Saturation % 100.0 % (94-98); PCO2 40 mmHg (32-35); PO2 156 mmHg (83-108)
[2024-10-03 17:39] LABS: INR 1.13; PT 14.8 Sec (11.4-14.6)
[2024-10-03 17:40] LABS: APTT 24.7 Sec (23.4-35.0)
[2024-10-03 17:52] LABS: Troponin I 0.016 ng/ml
--- NOTE | 2024-10-03 18:45 | PTCARENOTE ---
Patient received as transfer from via bed accompanied by RN x 2. Patient s/p Code Stroke. Transferred and admitted to ICU bed 3371. Placed on monitor. SR with 1st degree and BBB, occasional PVC. NIHSS performed and inititally 15. Left facial
droop noted, garbled speech, minimal movement of LLE, weak LUE, no vision noted left eye, left hemiparesis, inattention of left side, forced gaze to the right. BBS clear, S1S2 regular with positive murmur. No edema, bilateral feet cold, socks
donned. Afebrile, VSS. See assistant manager/embalmer and NIHSS documented on worklist flowsheet. Bed in low and locked position, bed alarm on, call alvarado in reach. 1:1 RN at bedside.
--- NOTE | 2024-10-03 18:46 | W.PN.UPDATE ---
Update Note
Progress Note Update
Called to stroke alert by nurse.
On exam patient has dense left hemiparesis with left facial droop. Right gaze preference. Able to follow commands. Moving right side of the body but not the left side. Left leg is stronger than the left arm.
Urgent CT head completed without acute findings.
Urgent CTA head and neck with CT perfusion.
Telestroke conference with [facility] neurology fellow obtained and consent obtained from family to administer tenecteplase. No obvious contraindication after speaking in detail with family about risks versus benefits.
ICU transfer orders placed.
1 hour and 45 minutes spent seeing, examining patient, reviewing records, speaking with [facility] neurology fellow, speaking with family, speaking with other providers and transferring patient.
[2024-10-03 18:58] LABS: Glucose - Point of Care 105 mg/dl (70-99)
[2024-10-03] MEDS: TNKASE 2.8 MG IV (18:58)
--- NOTE | 2024-10-03 19:23 | RR ---
A Rapid Response was called on this patient, please see Rapid Response form.
--- NOTE | 2024-10-03 19:24 | PTCARENOTE ---
Patient was found slouched in her chair. Patient remained in change of mental status while placing her back into patient bed. VSS, EKG, BG were taken. Rapid response was called.
--- NOTE | 2024-10-03 22:00 | PTCARENOTE ---
NIHSS improved to 6. BAH, no drift on left, sensation left side improving. Speech not slurred. no facial droop. Left eye blindness still evident but right gaze improved. Right AC SL site slightly ecchymotic but no bleeding. Left side sensation
improved but still mildly decreased. Of note, patient able to name items on picture list naming feather, chair, cactus, and cardoso. She can say Mama, Tip-Top, Fifty-Fifty, Thanks, Huckleberry, and fudge candy maker without slurring. However, she cannot
read sentences or say what is wrong in picture with boy, girl and mother. She does not have her reading glasses and favors the right when looking at items. Hx of visual hallucinations noted in chart--at times,she is talking to family members who
aren't here.
[2024-10-03] MEDS: OFIRMEV 100 IV (22:25)
--- NOTE | 2024-10-03 23:30 | PTCARENOTE ---
Patient dozing off intermittently between neuro assessments s/p TNK. Stable. She states tongue pain from biting right side of tongue is resolved after IV Tylenol. Assisted to bedpan, positive flatus, no BM. Yin care has been performed. EKG done
per order. No further bleeding noted from the mouth. Right AC IV site with slight ecchymosis at site but no oozing. SR with pacs, HR 80-100. Rest of physical assessment unchanged.
[2024-10-04] VITALS (37 sets, daily range): BP systolic 91–166; BP diastolic 55–112; BMI 22.3
--- NOTE | 2024-10-04 00:35 | PTCARENOTE ---
Notified Fahad LINDSAY that HR is creeping up from 68-78 to now 88-103. She did not receive her pm dose of Metoprolol due to NPO status. Will follow and call for new orders, will notifiy if sustained HR > 105BPM at CARDIOLOGY CONSULTANT request.
--- NOTE | 2024-10-04 04:00 | PTCARENOTE ---
Addendum entered by Renee Hobson RN 10/04/24 05:39:
BBS clear. No edema. SR with BBB on CM.
Original Note:
Patient now on hourly neuro checks s/p TNK. She is stable. BAH, hand grasps are strong, left hand grasp only ever so slightly weaker than the right, no drift. Smile even. Speech clear, no aphasia. Left eye remains blind, no corneal reflex. Sensation
slightly less on the left but present. Normal gaze. Follows commands, oriented. No bleeding noted. Right SC SL site with some ecchymosis at insertion site, no hematoma or leaking. Unable to draw blood work from right AC line this am. Right hand SL
WDL. Dozing intermittently when undisturbed. Still noted to have baseline visual hallucinations.
[2024-10-04] MEDS: NSS 500 IV (06:42)
--- NOTE | 2024-10-04 06:48 | CON.INTV ---
Consultation
Consultation Request
Date/Time Consultation Requested: 10/04
Date/Time Consultation Performed: 10/04
Reason for Consultation: Critical care
Medical History
-
History of Present Illness:
History obtained from the patient, and from the chart. Patient with mild expressive aphasia. Pleasant 83-year-old female with recent hospital stay 10 days ago for hypokalemia. History of anxiety, breast cancer, pulm hypertension, aortic valve
replacement, presented on 10/02 with mental status changes. As an outpatient, UTI was suspected part, patient was started on prednisone and antibiotic. Patient was seen by psychiatry, being treated for paranoia, agitation with Haldol. Patient also
has history of Parkinson disease with visual hallucinations. On 10/03, patient had stroke alert, left hemiparesis with left facial droop, right gaze preference. Imaging unremarkable for acute findings. In consultation with [facility] neurology, TNK was
administered, patient transferred to ICU 10/03
Presently, patient appears to be comfortable, NIH score 6, seems to be improved with regards to left-sided weakness, patient speaking with occasional word finding issues
.
PMH: Hypertension, history of bicuspid aortic valve status post replacement 2014, IBS, breast cancer, anxiety/depression, history of hallucinations, Parkinson's disease. History of cholecystectomy
Past Medical History
Past Medical History: None (See above) and Psychiatric
Past Surgical History: None (See above)
Social History
Tobacco: Non-smoker
Alcohol: None
Drug: None
Living: Alone
Family History
Family History: Reviewed & Not Pertinent
Allergies / Home Medications
Allergies
Allergy/AdvReac Type Severity Reaction Status Date / Time
codeine (Codeine) Allergy hyperactivi Verified 09/19/24 09:44
ty
pollen extracts Allergy SEASONAL Verified 10/02/24 21:15
ALLERGIES-SNEEZING
simvastatin Allergy myalgia Verified 09/19/24 09:44
Home Medications
�Medication �Instructions �Recorded �Confirmed �Last Taken �Type
lisinopril 20 mg tablet 20 mg PO DAILY Blood Pressure 09/20/24 10/02/24 10/02/24 History
loperamide 2 mg tablet 2 mg PO Q8HPRN PRN nausea/vomiting 09/20/24 10/02/24 09/24/24 History
metoprolol tartrate 50 mg tablet 50 mg PO BID Blood Pressure 09/20/24 10/02/24 10/02/24 History
mirtazapine 7.5 mg tablet 7.5 mg PO HS Sleep #0 tabs 09/23/24 10/02/24 10/01/24 Rx
L.acidophil-L.casei-B.bifid-B.longum-FOS 1 cap PO Q12H 10/02/24 10/02/24 10/02/24 History
2 billion cell-50 mg capsule
(Probiotic Blend)
Saccharomyces boulardii 250 mg 250 mg PO DAILY 10/02/24 10/02/24 10/01/24 History
capsule (Florastor)
acetaminophen 325 mg tablet 650 mg PO Q6HPRN PRN mild 10/02/24 10/02/24 10/01/24 History
(Tylenol) pain/temp>100F
amlodipine 5 mg tablet 5 mg PO DAILY 10/02/24 10/02/24 10/02/24 History
bisacodyl 10 mg rectal suppository 10 mg [place] DAILYPRN PRN if MOM 10/02/24 10/02/24 Unknown History
(Dulcolax (bisacodyl)) ineffective
cholestyramine 4 gram oral powder 4 g PO DAILY 10/02/24 10/02/24 09/30/24 History
(Cholestyramine Light)
fosfomycin tromethamine 3 gram 3 g PO ONCE 10/02/24 10/02/24 10/02/24 History
oral packet
magnesium hydroxide 400 mg/5 mL 30 ml PO [id number] PRN if no Bm x 3 10/02/24 10/02/24 Unknown History
oral suspension (Milk of Magnesia) days
multivitamin 1 tab PO DAILY 10/02/24 10/02/24 10/01/24 History
prednisone 10 mg tablet 10 mg PO DAILY 10/02/24 10/02/24 10/02/24 History
sodium phosphates 19 gram-7 118 ml [place] DAILYPRN PRN if supp 10/02/24 10/02/24 Unknown History
gram/118 mL enema (Fleet Enema) ineffective
thiamine HCl (vitamin B1) 100 mg 100 mg PO DAILY 10/02/24 10/02/24 10/01/24 History
tablet
zinc oxide 13 % topical cream 1 applic topical BID apply to 10/02/24 10/02/24 10/02/24 History
sacrum
Review of Systems
-
Unable to Obtain full review of systems at this time due to: Acuity
Vitals / Labs / Diagnostic Testing
Vital Signs
Temp Pulse Resp BP Pulse Ox
97.8 F 86 19 98/55 95
10/04/24 03:31 10/04/24 06:26 10/04/24 06:26 10/04/24 06:26 10/04/24 06:26
Lab Data
10/04/24 06:00
10/04/24 06:00
Laboratory Results
10/03/24 10/03/24
17:17 17:29
PT 14.8 H
INR 1.13
APTT 24.7
pH 7.41
pCO2 40 H
pO2 156 H
HCO3 25.4
O2 Delivery Level Not Reportable
Diagnostic Testing:
Physical Exam
-
HEENT: Normocephalic and Anicteric
Cardiovascular: S1/S2, Regular Rhythm, Murmur (n) and Rub (n)
Respiratory: Wheeze (n), Rales (n), Rhonchi (n) and Non-Labored Respirations
GI: Soft, Non Distended and Non Tender
Neurology: Awake, Alert, Other (Mild left-sided weakness, occasional word finding issues but able to converse) and Other (Able to look to the left, no rightward gaze)
Skin: Good Color
General: Comfortable
Assessment
-
83-year-old female with history of hypertension, IBS, Parkinson disease with history of TME and hallucinations last hospitalized for similar reasons in August, with recent hospitalization 10 days ago for hypokalemia, now presents with increased
agitation. Patient apparently has been refusing outpatient medications, with paranoia. Hospital stay complicated by stroke alert, left-sided weakness, right gaze, negative imaging. Received TNK 10/03, transferred to ICU
Acute CVA, 10/03
Left-sided hemiplegia, rightward gaze, status post TNK
Improved, now NIH now 3
Aspiration risk
Mild leukocytosis
Abnormal UA
Admission for TME 10/02
Conditions present prior to admission
History of recurrent UTI, urinary retention
Parkinson's disease with visual hallucinations
Hypertension
IBS
DNR
Plan/recommendations
At this time, patient remains critically ill post TNK therapy but appears comfortable. Neurological exam has improved, less left-sided weakness and now is able to look to the left, rightward gaze has resolved
NIH presently 3. Overnight it was 6
CT imaging unremarkable for acute findings
Blood sugar stable
Urinalysis abnormal
Moving forward
Continue with neurochecks
Repeat imaging per neurology
Patient remains on IV antibiotics
Agree with discontinuing Haldol.
Patient with history of Parkinson's, intermittent agitation, paranoia, refusing medications in the past
Psychiatry is following
Mild leukocytosis noted. Abnormal UA noted. Remains on antibiotics per primary service
EKG with sinus rhythm, QT corrected 487
Follow clinically
Aspiration precautions, speech and swallow evaluation
Aspiration risk as noted
DVT prophylaxis: Mechanical
Reviewed with critical care nursing, primary service
TCCT 31 min
--- NOTE | 2024-10-04 07:05 | PTCARENOTE ---
Report given verbally to oncoming shift, Nori REED. Bedside rounds completed. NIHSS performed at bedside. Dr Ace at bedside to assess. IVF bolus infusing per order. Left eye corneal reflex present this am, improvement. However, patient with slight
EA noted. Denies pain. Sensation improved left side. BAH without drift. Hand grasp and left pedal push still slightly weaker than right. Dr Ace updated with patient status.
[2024-10-04] MEDS: D5/0.9% SODIUM CHLORIDE 1000 IV ×2 (07:32→14:31)
--- NOTE | 2024-10-04 08:01 | W.PN.HOSP.TC ---
Today's Communication/Plan
-
.
Assessment / Plan
Assessment / Plan
Physical Exam
General: Well Developed and Well Nourished. Not in distress.
HEENT: Normocephalic, Anicteric and Other (Mucous Membranes seem dry)
Respiratory: Clear and Non Labored Respirations
Cardiac: S1/S2, Regular Rhythm and + Murmur
GI: Soft, non tender.
Genito-urinary: + Yin, no hematuria.
Musculoskeletal: No Clubbing and No Cyanosis
Skin: Warm and Dry
Neuro: Awake, Alert and oriented to surroundings, she followed commands.
Psych: calm, no agitation
# Stroke alert
Sudden onset of acute left sided hemiplegia/ left facial droop, right gaze s/p TNK on 10/03. CTA no acute bleeding
Starting to improve since then, no pronator drift on exam, followed commands
Order MRI of brain
Order echo
Will need dual anti-plt therapy
Appreciate neurology help
# She presented with increased Confusion & Agitation and Paranoia
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
She was evaluated by psych, at one pint was considering Seroquel , she was on Remeron at home
Presented with hx of not taking her medications .
# Acute urinary retention
Urine test possible UTI, blood and urine culture were sent and empiric IV Rocephin
s/p Yin
Parkinson's Disease with Visual Hallucinations
Possible new onset based on exam, no prior hx of Esther
-Patient evaluated by Neurology last admission and decision was made not to start medication
# Essential Hypertension
-Low BP this morning, prolonged low oral intake per speech evaluation, based on video swallow, recommended iDDS4
Now to give IVF
Resume medications slowly
# Irritable Bowel Syndrome - Diarrhea predominant
-Continue probiotics and cholestyramine
DVT proph: off Lovenox after thrombolytics
Code Status: DNR - Confirmed with family at the time of admission
Total time spent to see the patient, examine the patient, review data and lab result, discuss treatment plan with patient, nursing staff around 55 minutes
Anticipated Discharge: > 48 hours
Subjective/Interval History
-
Date of Service: October 04, 2024
Uneventful night
Improving NIH scare over night
Objective Data
-
Labs:
Laboratory Results
10/03/24 10/04/24
23:00 06:00
WBC Cancelled
Hgb Cancelled
Hct Cancelled
Plt Count Cancelled
Sodium Cancelled Cancelled
Potassium Cancelled Cancelled
Chloride Cancelled Cancelled
Carbon Dioxide Cancelled Cancelled
BUN Cancelled Cancelled
Creatinine Cancelled Cancelled
Glucose Cancelled Cancelled
Calcium Cancelled Cancelled
Total Bilirubin Cancelled
AST Cancelled
ALT Cancelled
Alkaline Phosphatase Cancelled
Vital Signs:
Vital Signs
Temp Pulse Resp BP Pulse Ox
97.8 F 80 21 136/108 97
10/04/24 03:31 10/04/24 07:06 10/04/24 07:06 10/04/24 07:06 10/04/24 07:06
I&O
10/03/24 10/04/24 10/05/24
06:59 06:59 06:59
Intake Total 780 / 780
Output Total 1725 / 1725
Balance -945 / -945
--- NOTE | 2024-10-04 08:27 | CON.NEURO ---
Consultation
Order
Date of Consultation: 10/04/24
Requesting Provider: Ramez Meek DO
Reason for Consult: Stroke
Neurology Consultation Note.
HPI: This is an 83-year-old ambidexterous woman who presented to [facility] from [facility] on 10/02/2024 with worsening of encephalopathy and change in behavior.
ER VS: 146/93, 107, afebrile
EKG: NSR, QTc Int : 473 ms.
PDMP:none
Labs: WBCs�11.7�14.6, vitamin B12�5 6, normal thiamine, UA�positive for leukocyte esterase, WBCs, ketones.
Alcohol level�negative.
Ms. Up developed acute left hemiparesis and right gaze preference on 10/03/2024 in PM.
VS: 10/03/24 at 18:48 BP 125/84, HR 93, Tele: NSR.
CT head wo contrast (10/03/2024) no acute abnormalities. Mild to moderate volume loss.
CTA head/neck(10/03/2024)�left M1 high-grade stenosis, 3 mm BRAXTON/ACom aneurysm.
She received TNK at 18:58.
Ms. Up was recently hospitalized to with visual hallucinations and was seen by neurology and psychiatry services in August 2024.
Brain MRI without gadolinium (done for an evaluation of visual hallucinations on 09/21/2024) showed no acute abnormalities and a few tiny foci of T2/FLAIR hyperintense signal in the cerebral white matter.
PMH:breast CA, AAA, HTN, DLP, PH, IBS, GERD
PSH: Bioprosthetic AVR, left breast lumpectomy, tubal ligation,, cholecystectomy.
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
FH: noncontributory to current presentation
All: Simvastatin, codeine
ROS: Negative for headache, positive for chronic left arm heaviness�edema. Positive for left leg weakness.
General: Well developed. In no acute distress.
Cardio: Regular rate. Extremities are without cyanosis or edema.
Neuro:
Mental Status: Alert, oriented to self, president, 2024. Did not know the month (October), day (Sunday) or date. Poor attention and preserved comprehension. Follows simple requests. Nonfluent.
Cranial Nerves: Pupils are equally round and reactive to light. EOMs full. Visual aguilar full to confrontation. No ptosis. No nystagmus. Face symmetric. Impaired hearing AU. The palate elevated well. SCMs and traps 5/5. Tongue midline. No
dysarthria. Moderate to severe hypophonia.
Motor: Normal motor tone. Minimal left pronator drift. No left leg drift.
Reflexes: Limited exam due to cooperation
Sensory: Limited due to poor attention.
Coordination: No dysmetria or tremor.
Gait: deferred
Assessment and Plan:
I. Right subcortical infarct versus focal seizure.
II. 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
III. Multifactorial encephalopathy
IV. Chronic left upper extremity lymphedema
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
- Avoid cerebral hypoperfusion
- Repeat CT head without contrast at 7 PM today before starting aspirin 81 mg once a day
- Brain MRI without garth
- Please check LDL
- TTE
- Routine EEG
- SCDs/TEDs
I personally reviewed all radiology and labs along with past medical records pertinent to current medical problems. Total time spent in patient care is 60 minutes.
Thank you for allowing us to participate in the care of this patient. We will continue to follow. Please do not hesitate to contact us with any questions or concerns.
Subjective/Objective
Subjective Data
Date of Service: October 04, 2024
Objective Data
Vital Signs
Temp Pulse Resp BP Pulse Ox
37.1 C 71 18 130/85 95
10/04/24 07:25 10/04/24 08:00 10/04/24 08:00 10/04/24 08:00 10/04/24 08:00
Lab Results
10/04/24 06:00
10/04/24 06:00
PT 14.8 Sec (11.4-14.6) H 10/03/24 17:17
INR 1.13 10/03/24 17:17
APTT 24.7 Sec (23.4-35.0) 10/03/24 17:17
Sodium Cancelled 10/04/24 06:00
Potassium Cancelled 10/04/24 06:00
BUN Cancelled 10/04/24 06:00
Glucose Cancelled 10/04/24 06:00
Calcium Cancelled 10/04/24 06:00
Vitamin B12 506 pg/ml (711-230) 10/02/24 16:35
Patient Allergies
codeine (Codeine) Allergy (Verified 09/19/24 09:44)
hyperactivity
pollen extracts Allergy (Verified 10/02/24 21:15)
SEASONAL ALLERGIES-SNEEZING
simvastatin Allergy (Verified 09/19/24 09:44)
myalgia
Medications
-
Active Medications
Generic Name Dose Route Start Last Admin
Trade Name Freq PRN Reason Stop Dose Admin
Acetaminophen 650 mg 10/02/24 21:13
Acetaminophen 325 Mg Tablet PO 10/30/24 21:12
Q4HPRN PRN
mild pain/ fever>100.5F
Ceftriaxone Sodium 1,000 mg 10/03/24 12:00 10/03/24 13:46
Ceftriaxone 1000 Mg / 10 Ml Vial IV 1,000 mg
Q24H LANA Administration
Cholestyramine Resin 4 gram 10/03/24 13:00 10/03/24 13:45
Cholestyramine 4 Gram Packet PO 10/31/24 12:59 4 gram
DAILY@1300 LANA Administration
Dextrose/Sodium Chloride 1,000 mls @ 150 mls/hr 10/04/24 07:00 10/04/24 07:32
D5/0.9% Sodium Chloride IV 1,000 mls
.Q6H40M LANA Administration
Sodium Chloride 0 flush 10/03/24 17:00
Sodium Chloride 0.9% (Flush) Syringe IV 10/31/24 16:59
PER PROTOCOL LANA
Sterile Water 10 ml 10/03/24 12:00 10/03/24 13:46
Sterile Water For Injection 10 Ml Vial IV 10/31/24 11:59 10 ml
Q24H LANA Administration
Home Medications
�Medication �Instructions �Recorded
lisinopril 20 mg tablet 20 mg PO DAILY Blood Pressure 09/20/24
loperamide 2 mg tablet 2 mg PO Q8HPRN PRN nausea/vomiting 09/20/24
metoprolol tartrate 50 mg tablet 50 mg PO BID Blood Pressure 09/20/24
mirtazapine 7.5 mg tablet 7.5 mg PO HS Sleep #0 tabs 09/23/24
L.acidophil-L.casei-B.bifid-B.longum-FOS 1 cap PO Q12H 10/02/24
2 billion cell-50 mg capsule
(Probiotic Blend)
Saccharomyces boulardii 250 mg 250 mg PO DAILY 10/02/24
capsule (Florastor)
acetaminophen 325 mg tablet 650 mg PO Q6HPRN PRN mild 10/02/24
(Tylenol) pain/temp>100F
amlodipine 5 mg tablet 5 mg PO DAILY 10/02/24
bisacodyl 10 mg rectal suppository 10 mg [place] DAILYPRN PRN if MOM 10/02/24
(Dulcolax (bisacodyl)) ineffective
cholestyramine 4 gram oral powder 4 g PO DAILY 10/02/24
(Cholestyramine Light)
fosfomycin tromethamine 3 gram 3 g PO ONCE 10/02/24
oral packet
magnesium hydroxide 400 mg/5 mL 30 ml PO [id number] PRN if no Bm x 3 10/02/24
oral suspension (Milk of Magnesia) days
multivitamin 1 tab PO DAILY 10/02/24
prednisone 10 mg tablet 10 mg PO DAILY 10/02/24
sodium phosphates 19 gram-7 118 ml [place] DAILYPRN PRN if supp 10/02/24
gram/118 mL enema (Fleet Enema) ineffective
thiamine HCl (vitamin B1) 100 mg 100 mg PO DAILY 10/02/24
tablet
zinc oxide 13 % topical cream 1 applic topical BID apply to 10/02/24
sacrum
Vital Signs and Labs
-
Vital Signs and Labs:
Vital Signs
Temp Pulse Resp BP Pulse Ox
37.1 C 71 18 130/85 95
10/04/24 07:25 10/04/24 08:00 10/04/24 08:00 10/04/24 08:00 10/04/24 08:00
Lab Results
10/04/24 06:00
10/04/24 06:00
PT 14.8 Sec (11.4-14.6) H 10/03/24 17:17
INR 1.13 10/03/24 17:17
APTT 24.7 Sec (23.4-35.0) 10/03/24 17:17
Sodium Cancelled 10/04/24 06:00
Potassium Cancelled 10/04/24 06:00
BUN Cancelled 10/04/24 06:00
Glucose Cancelled 10/04/24 06:00
Calcium Cancelled 10/04/24 06:00
Vitamin B12 506 pg/ml (272-194) 10/02/24 16:35
Medications
-
Medications:
Generic Name Dose Route Start Last Admin
Trade Name Freq PRN Reason Stop Dose Admin
Acetaminophen 650 mg 10/02/24 21:13
Acetaminophen 325 Mg Tablet PO 10/30/24 21:12
Q4HPRN PRN
mild pain/ fever>100.5F
Ceftriaxone Sodium 1,000 mg 10/03/24 12:00 10/03/24 13:46
Ceftriaxone 1000 Mg / 10 Ml Vial IV 1,000 mg
Q24H LANA Administration
Cholestyramine Resin 4 gram 10/03/24 13:00 10/03/24 13:45
Cholestyramine 4 Gram Packet PO 10/31/24 12:59 4 gram
DAILY@1300 LANA Administration
Dextrose/Sodium Chloride 1,000 mls @ 150 mls/hr 10/04/24 07:00 10/04/24 07:32
D5/0.9% Sodium Chloride IV 1,000 mls
.Q6H40M LANA Administration
Sodium Chloride 0 flush 10/03/24 17:00
Sodium Chloride 0.9% (Flush) Syringe IV 10/31/24 16:59
PER PROTOCOL LANA
Sterile Water 10 ml 10/03/24 12:00 10/03/24 13:46
Sterile Water For Injection 10 Ml Vial IV 10/31/24 11:59 10 ml
Q24H LANA Administration
Home Medications
-
Home Medications
lisinopril 20 mg tablet 20 mg PO DAILY Blood Pressure 09/20/24
loperamide 2 mg tablet 2 mg PO Q8HPRN PRN nausea/vomiting 09/20/24
metoprolol tartrate 50 mg tablet 50 mg PO BID Blood Pressure 09/20/24
mirtazapine 7.5 mg tablet 7.5 mg PO HS Sleep #0 tabs 09/23/24
L.acidophil-L.casei-B.bifid-B.longum-FOS 2 billion cell-50 mg capsule (Probiotic Blend) 1 cap PO Q12H 10/02/24
Saccharomyces boulardii 250 mg capsule (Florastor) 250 mg PO DAILY 10/02/24
acetaminophen 325 mg tablet (Tylenol) 650 mg PO Q6HPRN PRN mild pain/temp>100F 10/02/24
amlodipine 5 mg tablet 5 mg PO DAILY 10/02/24
bisacodyl 10 mg rectal suppository (Dulcolax (bisacodyl)) 10 mg [place] DAILYPRN PRN if MOM ineffective 10/02/24
cholestyramine 4 gram oral powder (Cholestyramine Light) 4 g PO DAILY 10/02/24
fosfomycin tromethamine 3 gram oral packet 3 g PO ONCE 10/02/24
magnesium hydroxide 400 mg/5 mL oral suspension (Milk of Magnesia) 30 ml PO [id number] PRN if no Bm x 3 days 10/02/24
multivitamin 1 tab PO DAILY 10/02/24
prednisone 10 mg tablet 10 mg PO DAILY 10/02/24
sodium phosphates 19 gram-7 gram/118 mL enema (Fleet Enema) 118 ml [place] DAILYPRN PRN if supp ineffective 10/02/24
thiamine HCl (vitamin B1) 100 mg tablet 100 mg PO DAILY 10/02/24
zinc oxide 13 % topical cream 1 applic topical BID apply to sacrum 10/02/24
--- NOTE | 2024-10-04 09:00 | PTCARENOTE ---
Son and dil in to see pt briefly and updated.
[2024-10-04] MEDS: STERILE WATER FOR INJECTION 10 ML IV (12:10)
[2024-10-04] MEDS: ROCEPHIN 1000 MG IV (12:10)
--- NOTE | 2024-10-04 12:11 | PTCARENOTE ---
Systems reviewed. No new changes. Continues with confused conversation, but speech clear. Oriented. Follows commands, [place].
[2024-10-04] MEDS: QUESTRAN PO (13:00)
--- NOTE | 2024-10-04 19:12 | PTCARENOTE ---
Bedside hand off/nih completed with studio camera operator nurse. No changes noted.
--- NOTE | 2024-10-04 20:25 | PTCARENOTE ---
Assumed care of pt. approx 1900.
NIH handoff completed w. off going RN NIH remains at a 3 --> see flowsheet for further details.
[address] completed w.o complications --> pt. transferred back to room.
Remains hemodynamically stable, RA maintaining own airway.
Family updated extensively at bedside.
[2024-10-05] VITALS (12 sets, daily range): BP systolic 118–156; BP diastolic 76–109; BMI 22.3
--- NOTE | 2024-10-05 00:12 | PTCARENOTE ---
No further change in assessment.
[2024-10-05] MEDS: OFIRMEV 100 IV (03:49)
[2024-10-05] MEDS: D5/0.9% SODIUM CHLORIDE 1000 IV ×2 (03:51→06:54)
--- NOTE | 2024-10-05 03:54 | PTCARENOTE ---
assessment unchanged.
Remains to have slightly confused speech and issues word finding however neuro assessment is unchanged.
[2024-10-05 04:39] LABS: Hematocrit 36.8 % (37.0-47.0); Hemoglobin 11.9 g/dL (12.0-16.0); Mean Corp Hgb Conc. 32.3 g/dL (33.0-37.0); Mean Corpuscular Volume 91.3 fL (81.0-99.0); Platelet Count 114 10^3/uL (130-400); Red Cell Dist. Width 13.2 % (11.5-14.5)
[2024-10-05 04:44] LABS: ALT (SGPT) 30 U/L (0-35); AST (SGOT) 29 U/L (14-36); Albumin 3.4 g/dl (3.5-5.0); Alkaline Phosphatase 43 U/L (38-126); Blood Urea Nitrogen 31 mg/dl (7-17); Calcium 9.3 mg/dl (8.4-10.2); Carbon Dioxide 24 mmol/L (22-30); Chloride 119 mmol/L (98-107); Estimated Creatinine Clearance 55 ml/min; Glucose 171 mg/dl (70-99); Total Protein 5.9 g/dl (6.3-8.2); eGFR > 60.00
[2024-10-05 05:07] LABS: Sodium 144 mmol/L (135-145)
--- NOTE | 2024-10-05 07:00 | W.PN.INTV ---
Today's Communication / Plan
Recommendations
Neurological exam improved
Blood pressure, blood sugar stable
Await MRI findings
Okay for transfer out of ICU. We will sign off. Please call with questions
Assessment
-
83-year-old female with history of hypertension, IBS, Parkinson disease with history of TME and hallucinations last hospitalized for similar reasons in August, with recent hospitalization 10 days ago for hypokalemia, now presents with increased
agitation. Patient apparently has been refusing outpatient medications, with paranoia. Hospital stay complicated by stroke alert, left-sided weakness, right gaze, negative imaging. Received TNK 10/03, transferred to ICU
Acute CVA, 10/03
Left-sided hemiplegia, rightward gaze, status post TNK
Improved, now NIH now 3
Aspiration risk
Mild leukocytosis
Abnormal UA
Admission for TME 10/02
Conditions present prior to admission
History of recurrent UTI, urinary retention
Parkinson's disease with visual hallucinations
Hypertension
IBS
DNR
Plan/recommendations
At this time, patient appears comfortable without complaints
Status l post TNK therapy but appears comfortable. Neurological exam has improved, less left-sided weakness seems to have resolved
Brain MRI pending this morning
CT imaging unremarkable for acute findings
Blood sugar stable
Urinalysis abnormal
Moving forward
Await repeat imaging, MRI imaging
Patient remains on IV antibiotics
Neurological exam significantly improved
Patient with history of Parkinson's, intermittent agitation, paranoia, refusing medications in the past
Psychiatry is following
Mild leukocytosis noted. Abnormal UA noted. Remains on antibiotics per primary service
EKG with sinus rhythm, QT corrected 487
Follow clinically
Aspiration precautions, speech and swallow evaluation
Aspiration risk as noted
DVT prophylaxis: Mechanical
Okay for transfer out of ICU. We will sign off. Please call with questions
Subjective Dataa
Subjective Data
Date of Service:
Date of Service: October 05, 2024
Subjective:
Patient without any major issues overnight. Sitting in chair, without complaints. She is able to answer questions, speaks sentences. She has occasional word finding issues. Denies chest pain, shortness of breath. Urine output is adequate, no
bleeding. Hemoglobin 11.9. Blood pressure adequate
Objective Data
Data Reviewed
Vital Signs / I&O / Oxygen:
Vital Signs
Temp Pulse Resp BP Pulse Ox
98.4 F 76 18 136/109 98
10/05/24 03:26 10/05/24 06:00 10/05/24 06:00 10/05/24 06:00 10/05/24 04:16
Intake and Output
10/04/24 10/05/24 10/06/24
06:59 06:59 06:59
Intake Total 780 / 780 3685 / 3685
Output Total 1725 / 1725 1030 / 1030
Balance -945 / -945 2655 / 2655
SaO2 98
Nasal Cannula flow liters per 2
minute
Physical Exam
General: Comfortable
HEENT: Normocephalic and Anicteric
Cardiovascular: S1-S2, Regular Rhythm, Murmur (n) and Rub (n)
Respiratory: Wheeze (n), Crackles (n), Rhonchi (n) and Non-Labored Respirations
GI: Soft, Non Distended and Non Tender
Neurology: Awake, Alert, Oriented and No Motor Deficits (No motor deficits per my exam. Mild word finding issues during conversation)
Skin: Cyanosis (n), Jaundice (n) and Rash (n)
Labs/Micro/Reports
Lab Data
10/05/24 03:44
10/05/24 03:44
Microbiology
10/03/24 16:33 Blood/Venous Blood Culture - Preliminary
No Growth in 24 hours- Final report to follow
10/03/24 10:14 Urine Urine Culture - Final
NO GROWTH
10/03/24 04:03 Nose MRSA Screen - Final
No Methicillin Resistant Staphylococcus aureus isolated.
--- NOTE | 2024-10-05 07:12 | PTCARENOTE ---
Pt taken to MRI as scheduled. Reported needing to have bm prior, but sat on bedpan for several minutes without results. Dr Ace in to see pt and recommended tx to tele. Will do full assessment upon return to floor.
--- NOTE | 2024-10-05 07:40 | W.PN.NEURO.1 ---
Today's Communication / Plan
-
.
Subjective/Objective
Subjective Data
Date of Service: October 05, 2024
Neurology Follow up note.
Ms. Up reports that her left-sided weakness likely began before her hospital admission, though the exact timing is unclear.
The patient denies any current headache. She mentions difficulty sleeping last night due to the absence of her usual soothing music, which she typically listens to on her phone. Ms. Up adapted by using the hospital room's entertainment system to
play country music videos with soothing scenes, which helped her relax.
Ms. Up has a family history significant for cerebrovascular events, noting that her grandfather and sister both at age 51, one from a stroke and one from a brain bleed. This family history prompted her to start taking
The patient's brother, who was present during the visit, reports that Ms. Up seems 'a little less happy' today compared to yesterday when she was 'a little too happy.'
Brain MRI wo garth-
PMH:breast CA, AAA, HTN, DLP, PH, IBS, GERD
PSH: Bioprosthetic AVR, left breast lumpectomy, tubal ligation,, cholecystectomy.
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
FH: noncontributory to current presentation
All: Simvastatin, codeine
ROS: Negative for headache, positive for chronic left arm heaviness�edema. Positive for left leg weakness.
General: Well developed. In no acute distress.
Cardio: Regular rate. Extremities are without cyanosis or edema.
Neuro:
Mental Status: Alert, oriented to self, month, day and date. Increased processing time. Mild expressive dysphasia. Crosses midline. No hemineglect.
Cranial Nerves: Pupils are equally round and reactive to light. EOMs full. Visual aguilar full to confrontation. No ptosis. No nystagmus. Face symmetric. Impaired hearing AU. The palate elevated well. SCMs and traps 5/5. Tongue midline. No
dysarthria. No hypophonia.
Motor: Normal motor tone. Minimal left pronator drift. No left leg drift.
Coordination: No dysmetria or tremor.
Gait: deferred
Assessment and Plan:
I. Acute right MCA territory embolic stroke, s/p TNK. Likely etiology�aortic embolism.
II. L M1 stenosis-asymptomatic.
III. Multifactorial encephalopathy, significantly improved.
IV. Chronic left upper extremity lymphedema
V. HMG-CoA reductase inhibitors intolerance.
. Mild thrombocytopenia.
- Continue telemetry monitoring
- Delirium precautions
- Continue ASA 81 mg QD with close platelet monitoring.
- Please follow up LDL
- TTE
- SCDs/TEDs
I personally reviewed all radiology and labs along with past medical records pertinent to current medical problems. Total time spent in patient care is 40 minutes.
Thank you for allowing us to participate in the care of this patient. Please do not hesitate to contact us with any questions or concerns
Objective Data
Vital Signs
Temp Pulse Resp BP Pulse Ox
36.9 C 76 18 136/109 98
10/05/24 03:26 10/05/24 06:00 10/05/24 06:00 10/05/24 06:00 10/05/24 04:16
Lab Results
10/05/24 03:44
10/05/24 03:44
PT 14.8 Sec (11.4-14.6) H 10/03/24 17:17
INR 1.13 10/03/24 17:17
APTT 24.7 Sec (23.4-35.0) 10/03/24 17:17
Sodium 144 mmol/L (135-145) 10/05/24 03:44
Potassium Cancelled 10/04/24 06:00
BUN 31 mg/dl (7-17) H 10/05/24 03:44
Glucose 171 mg/dl (70-99) H 10/05/24 03:44
Calcium 9.3 mg/dl (8.4-10.2) 10/05/24 03:44
Vitamin B12 506 pg/ml (574-931) 10/02/24 16:35
Patient Allergies
codeine (Codeine) Allergy (Verified 09/19/24 09:44)
hyperactivity
pollen extracts Allergy (Verified 10/02/24 21:15)
SEASONAL ALLERGIES-SNEEZING
simvastatin Allergy (Verified 09/19/24 09:44)
myalgia
Vital Signs and Labs
-
Vital Signs and Labs:
Vital Signs
Temp Pulse Resp BP Pulse Ox
37.1 C 80 18 152/94 97
10/05/24 08:30 10/05/24 09:00 10/05/24 09:00 10/05/24 08:15 10/05/24 08:30
Lab Results
10/05/24 03:44
10/05/24 03:44
PT 14.8 Sec (11.4-14.6) H 10/03/24 17:17
INR 1.13 10/03/24 17:17
APTT 24.7 Sec (23.4-35.0) 10/03/24 17:17
Sodium 144 mmol/L (135-145) 10/05/24 03:44
Potassium Cancelled 10/04/24 06:00
BUN 31 mg/dl (7-17) H 10/05/24 03:44
Glucose 171 mg/dl (70-99) H 10/05/24 03:44
Calcium 9.3 mg/dl (8.4-10.2) 10/05/24 03:44
Vitamin B12 506 pg/ml (684-931) 10/02/24 16:35
Medications
-
Medications:
Generic Name Dose Route Start Last Admin
Trade Name Freq PRN Reason Stop Dose Admin
Acetaminophen 650 mg 10/02/24 21:13 10/05/24 08:32
Acetaminophen 325 Mg Tablet PO 10/30/24 21:12 650 mg
Q4HPRN PRN Administration
mild pain/ fever>100.5F
Amlodipine Besylate 5 mg 10/05/24 08:00 10/05/24 08:32
Amlodipine 5 Mg Tablet PO 11/02/24 07:59 5 mg
DAILY LANA Administration
Aspirin 81 mg 10/05/24 08:00 10/05/24 08:35
Aspirin 81 Mg Chewable Tablet PO 11/02/24 07:59 81 mg
DAILY LANA Administration
Cholestyramine Resin 4 gram 10/03/24 13:00 10/04/24 13:00
Cholestyramine 4 Gram Packet PO 10/31/24 12:59 Not Given
DAILY@1300 LANA
Dextrose/Sodium Chloride 1,000 mls @ 75 mls/hr 10/04/24 07:00 10/05/24 06:54
D5/0.9% Sodium Chloride IV 1,000 mls
.[id number] LANA Administration
Metoprolol Tartrate 50 mg 10/05/24 08:00 10/05/24 08:31
Metoprolol 50 Mg Regular Release Tablet PO 11/02/24 07:59 50 mg
BID LANA Administration
Mirtazapine 7.5 mg 10/05/24 22:00
Mirtazapine 7.5 Mg Regular Release Tablet PO 11/02/24 21:59
HS LANA
Sodium Chloride 0 flush 10/03/24 17:00
Sodium Chloride 0.9% (Flush) Syringe IV 10/31/24 16:59
PER PROTOCOL LANA
Home Medications
-
Home Medications
lisinopril 20 mg tablet 20 mg PO DAILY Blood Pressure 09/20/24
loperamide 2 mg tablet 2 mg PO Q8HPRN PRN nausea/vomiting 09/20/24
metoprolol tartrate 50 mg tablet 50 mg PO BID Blood Pressure 09/20/24
mirtazapine 7.5 mg tablet 7.5 mg PO HS Sleep #0 tabs 09/23/24
L.acidophil-L.casei-B.bifid-B.longum-FOS 2 billion cell-50 mg capsule (Probiotic Blend) 1 cap PO Q12H Supplement 10/02/24
Saccharomyces boulardii 250 mg capsule (Florastor) 250 mg PO DAILY Supplement 10/02/24
acetaminophen 325 mg tablet (Tylenol) 650 mg PO Q6HPRN PRN mild pain/temp>100F 10/02/24
amlodipine 5 mg tablet 5 mg PO DAILY Blood Pressure 10/02/24
bisacodyl 10 mg rectal suppository (Dulcolax (bisacodyl)) 10 mg NE DAILYPRN PRN if MOM ineffective 10/02/24
cholestyramine 4 gram oral powder (Cholestyramine Light) 4 g PO DAILY Supplement 10/02/24
fosfomycin tromethamine 3 gram oral packet 3 g PO ONCE Urinary Issue 10/02/24
magnesium hydroxide 400 mg/5 mL oral suspension (Milk of Magnesia) 30 ml PO [id number] PRN if no Bm x 3 days 10/02/24
multivitamin 1 tab PO DAILY Supplement 10/02/24
prednisone 10 mg tablet 10 mg PO DAILY INFLAMMATION 10/02/24
sodium phosphates 19 gram-7 gram/118 mL enema (Fleet Enema) 118 ml NE DAILYPRN PRN if supp ineffective 10/02/24
thiamine HCl (vitamin B1) 100 mg tablet 100 mg PO DAILY Supplement 10/02/24
zinc oxide 13 % topical cream 1 applic topical BID apply to sacrum 10/02/24
--- NOTE | 2024-10-05 08:23 | W.PN.HOSP.TC ---
Today's Communication/Plan
-
Transfer to telemetry
Resume diet per speech evaluation
PT OT to continue
MRI of the head
Assessment / Plan
Assessment / Plan
Physical Exam
General: Well Developed and Well Nourished. Not in distress.
HEENT: Normocephalic, Anicteric and Other (Mucous Membranes seem dry)
Respiratory: Clear and Non Labored Respirations
Cardiac: S1/S2, Regular Rhythm and + Murmur
GI: Soft, non tender.
Genito-urinary: + Yin, no hematuria.
Musculoskeletal: No Clubbing and No Cyanosis
Skin: Warm and Dry
Neuro: Awake, Alert and oriented to surroundings, answering questions, she followed commands.
Psych: calm, no agitation
# Stroke alert
Sudden onset of acute left sided hemiplegia/ left facial droop, right gaze s/p TNK on 10/03. CTA no acute bleeding
Starting to improve since then, no pronator drift on exam, followed commands
Speech is back to his baseline which has been nonfluent for a few weeks according to the family
Order MRI of brain
Order echo
Discussed with speech therapist, okay for pur�ed diet and thin liquid
Continue dual anti-plt therapy
Appreciate neurology and ICU Help
# She presented with increased Confusion & Agitation and Paranoia
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
She was evaluated by psych, at one pint was considering Seroquel , she was on Remeron at home
Presented with hx of not taking her medications .
# Acute urinary retention
Status post empiric Rocephin. Urine cultures negative
s/p Yin
#Patient was seen by neurologist last admission and diagnosed with possible Parkinson's Disease with Visual Hallucinations
Possible new onset based on exam, no prior hx of Parkinson disease
-Patient evaluated by Neurology last admission and decision was made not to start medication
# Essential Hypertension
-Low BP this morning, prolonged low oral intake per speech evaluation, based on video swallow, recommended iDDS4
Now to give IVF
Resume medications slowly
# Irritable Bowel Syndrome - Diarrhea predominant
-Continue probiotics and cholestyramine
DVT proph: off Lovenox after thrombolytics
Code Status: DNR - Confirmed with family at the time of admission
Discussed with ICU doctor, okay to transfer to telemetry
Total time spent to see the patient, examine the patient, review data and lab result, discuss treatment plan with patient, nursing staff around 55 minutes
Anticipated Discharge: > 48 hours
Subjective/Interval History
-
Date of Service: October 05, 2024
Doing better,Speech is not normal but has been like that for weeks according to family
No pain issues
Objective Data
-
Labs:
Laboratory Results
10/05/24
03:44
WBC 7.3
Hgb 11.9 L
Hct 36.8 L
Plt Count 114 L D
Sodium 144
Potassium Pending
Chloride 119 H
Carbon Dioxide 24
BUN 31 H
Creatinine 0.4 L
Glucose 171 H
Calcium 9.3
Total Bilirubin 0.9
AST 29
ALT 30
Alkaline Phosphatase 43
Vital Signs:
Vital Signs
Temp Pulse Resp BP Pulse Ox
98.4 F 76 18 136/109 98
10/05/24 03:26 10/05/24 06:00 10/05/24 06:00 10/05/24 06:00 10/05/24 04:16
I&O
10/04/24 10/05/24 10/06/24
06:59 06:59 06:59
Intake Total 780 / 780 3685 / 3685
Output Total 1725 / 1725 1030 / 1030
Balance -945 / -945 2655 / 2655
[2024-10-05] MEDS: LOPRESSOR 50 MG PO ×2 (08:31→20:37)
[2024-10-05] MEDS: NORVASC 5 MG PO (08:32)
[2024-10-05] MEDS: TYLENOL 650 MG PO (08:32)
[2024-10-05] MEDS: LOW STRENGTH ASPIRIN 81 MG PO (08:35)
--- NOTE | 2024-10-05 10:15 | PTCARENOTE ---
Once returned from MRI, chg bath completed. Yin care completed and pt assisted oob to chair. Slightly unsteady and impulsive. Chair alarm in place. NIH completed. Improved, Still some confused conversation but not new. C/o headache that
resolved with tylenol. Pt did take oral meds, but initially was going to refuse. With some encouragement, pt did take. Otherwise no new changes.
--- NOTE | 2024-10-05 12:10 | PTOTSP ---
Speech Pathology
Dysphagia Follow Up
Pt seen for dysphagia tx this date. Chart reviewed. WBC WNL and trending down from yesterday. On room air. Afebrile. HCT 7 with no acute abnormalities. Brain MRI from this AM pending. Remains confused with disorganized speech at times. Cleared by
DEREK Julio for PO trials. Per RN has been consuming thin liquids with no difficulty.
Patient recieved OOB in chair. Son and daughter present. Agreeable to PO trials this date. Imitated trials of thin liquid via straw with adequate oral acceptance. Self fed. No overt s/s of aspiration observed on 5/5 trials. Initiated trials of puree
via tsp. Self fed. Adequate oral prep and ap transfer. No overt s/s of aspiration observed on / trials.
Recommend:
1. Puree (IDDSI 4), Thin liquids (IDDSI 0)
2. Meds as best tolerated
3. Strategies - dry swallows, small bites, single sips, slow rate, FULL supervision
4. TWISTHAND service to follow up re: to assess diet level tolerance. If overt s/s of aspiration arise, make NPO and await speech re-evaluation.
--- NOTE | 2024-10-05 13:19 | CM ---
CM met with pt and family bedside in ED. Per family, pt is for transfer out of ICU. They are discussing LTC options with pt.
Family aware CM will remain available to assist with discharge planning.
[2024-10-05] MEDS: QUESTRAN 4 GRAM PO (13:22)
--- NOTE | 2024-10-05 13:30 | PTCARENOTE ---
Report called to [facility] who will assume care of pt upon transfer. Lunch tray has arrived. Will move once pt eats
--- NOTE | 2024-10-05 14:14 | W.PN.UPDATE ---
Update Note
Progress Note Update
Pt seen, chart reviewed. Pt had code stroke in the pm 10/03/24, had onset of Left hemiplegia/facial droop, Rt gaze, received TNK. Head CT showed no acute abnormality, MRI pending. Pt noted to be improving. Neurology evaluated/following with
impression of likely Right subcortical infarct, multifactorial encephalopathy. Pt has been managed with Remeron 7.5 mg HS. Zyprexa Zydis 2.5 mg prn was ordered but not given and discontinued. Pt has not had further visual hallucinations. Pt seen
sitting up in chair, talking with visitors. Pt alert, with sensorium intact, calm, pleasant, with no signs of psychosis. Pt appears oriented to her situation, shows awareness of recent events. Her speech is coherent, though she gives rambling
responses.
Imp: Multifactorial encephalopathy with visual hallucinations, resolving. Rt subcortical infarct/code stroke 10/03 in the pm, treated with TNK- improving
Rec: would continue Remeron, hold off on additional psychotropic agents in absence of agitation/hallucinations
Psychiatry will sign off; please re-consult for any new concerns
--- NOTE | 2024-10-05 14:41 | PTCARENOTE ---
Carlo Perez called and made aware of pt transfer.
[2024-10-05] MEDS: REMERON 7.5 MG PO (21:00)
[2024-10-06] VITALS (17 sets, daily range): BP systolic 88–151; BP diastolic 59–110
[2024-10-06] MEDS: TYLENOL 650 MG PO (04:33)
[2024-10-06] MEDS: FLUSH (NSS) 1 FLUSH IV ×2 (08:21→13:59)
[2024-10-06] MEDS: LOPRESSOR 50 MG PO (08:21)
[2024-10-06] MEDS: NORVASC 5 MG PO (08:21)
[2024-10-06] MEDS: LOW STRENGTH ASPIRIN 81 MG PO (08:21)
--- NOTE | 2024-10-06 08:37 | W.PN.HOSP.TC ---
Today's Communication/Plan
-
#Several Episodes of Melena 10/06/24 -- suspected upper GI Bleed
#New, progressive anemia, suspected from upper GI Bleed
#Hypotension suspected from upper GI bleed
#Vasovagal Episodes during bowel movements 10/06/24
-Patient is status post TNK a few days ago on 10/03/24, currently on Aspirin (last dose of Aspirin was 10/06/24 morning)
-Hold Aspirin for now
-IV PPI BID
-Clear Liquids Diet; NPO after midnight
-Appreciate gastroenterology -- possible EGD tomorrow
-1 unit PRBC given concern for active GI bleeding
-250 cc IV fluid bolus given hypotension
-Transfer to IMU for closer monitoring
Assessment / Plan
Assessment / Plan
Physical Exam
General: Well Developed and Well Nourished. Not in distress.
HEENT: Normocephalic, Atraumatic
Respiratory: Clear to Auscultation Bilaterally
Cardiac: S1/S2, Regular Rhythm and + Murmur
GI: Soft, non tender. Positive bowel sounds.
Musculoskeletal: No Clubbing and No Cyanosis
Skin: Warm and Dry
Neuro: Awake, Alert and oriented to surroundings, answering questions, she followed commands.
Psych: calm, no agitation
Assessment/Plan
#Melena 10/06/24 -- suspected upper GI Bleed
#New, progressive anemia, suspected from upper GI Bleed
#Hypotension suspected from upper GI bleed
#Vasovagal Episodes during bowel movements 10/06/24
-Patient is status post TNK a few days ago on 10/03/24, currently on Aspirin (last dose of Aspirin was 10/06/24 morning)
-Hold Aspirin for now
-IV PPI BID
-Clear Liquids Diet; NPO after midnight
-Appreciate gastroenterology -- possible EGD tomorrow
-1 unit PRBC given concern for active GI bleeding
-250 cc IV fluid bolus given hypotension
-Transfer to IMU for closer monitoring
#Stroke alert
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
Patient was recently here for visual hallucination and confusion. Was seen by psychiatrist and neurologist Dr. Christensen, deemed to have possible Parkinson disease. Decided not to treat Parkinson , continue home dose of Remeron, and was discharged
She was readmitted this time with confusion, refused her home pills, dementia like picture. She was seen by psychiatrist, Decided to continue with Remeron and possible use of Seroquel if needed. Patient ( same day) had code stroke, she developed
left hemiparesis and right gaze. She was given tenecteplase. Admitted to ICU
Sudden onset of acute left sided hemiplegia/ left facial droop, right gaze s/p TNK on 10/03. CTA no acute bleeding
Started to improve since then, no pronator drift on exam, followed commands
Speech is back to her baseline which has been nonfluent for a few weeks according to the family
MRI of brain with stroke
Echo without any clots
When resuming solid food, follow speech recommendations (currently on clear liquids followed by NPO)
Appreciate neurology
#Ascending Aortic Aneurysm
# She presented with increased Confusion & Agitation and Paranoia
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
She was evaluated by psych, at one pint was considering Seroquel , she was on Remeron at home
Presented with hx of not taking her medications .
#Noncompliance with medications outpatient
# Acute urinary retention
Status post empiric Rocephin. Urine cultures negative
s/p Yin
#Patient was seen by neurologist last admission and diagnosed with possible Parkinson's Disease with Visual Hallucinations
Possible new onset based on exam, no prior hx of Parkinson disease
-Patient evaluated by Neurology last admission and decision was made not to start medication
# Essential Hypertension
Resume medications slowly
Avoid antihypertensives for now given hypotension
# Irritable Bowel Syndrome - Diarrhea predominant
-Continue probiotics and cholestyramine
DVT proph: Will order SCDs if no DVT on lower extremity ultrasound. No chemical DVT prophylaxis given suspected bleeding and upper GI Bleed.
Code Status: DNR - Dr. Ace confirmed with family at the time of admission
On 10/06/24, I spoke multiple times to patient's son Chris and I also spoke to patient's daughter Ariadna, they were in full agreement with the management plan above including management for hypotension, anemia and suspected GI bleeding.
Hypotension, worsening anemia and suspected gastrointestinal bleeding is a high risk encounter.
Anticipated Discharge: > 48 hours
Subjective/Interval History
-
Date of Service: October 06, 2024
Patient was seen and examined. She continued to have several dark brown to dark black bowel movements today. She denied any chest pain, SOB or any other symptoms or complaints.
Objective Data
-
Vital Signs:
Vital Signs
Temp Pulse Resp BP Pulse Ox
98 F 79 16 140/60 96
10/06/24 07:54 10/06/24 08:21 10/06/24 07:54 10/06/24 08:21 10/06/24 08:20
I&O
10/05/24 10/06/24 10/07/24
06:59 06:59 06:59
Intake Total 3685 / 3685 855 / 855
Output Total 1030 / 1030 200 / 200
Balance 2655 / 2655 655 / 655
--- NOTE | 2024-10-06 11:54 | PTOTSP ---
REGISTERED MASSAGE THERAPIST Evaluation
Patient with signs concerning for mild dysarthria/dysphonia and a mixed mild aphasia (Quick Aphasia Battery Form 1 QAB overall score =8.53) with changes to conversation level speech (i.e., tangential, phonemic paraphasias with variable
awareness/attempts to self-correct, infrequent initial syllable repetitions) and complex auditory comprehension. Changes to cognitive linguistic skills also suspected (i.e., attention, losing train of though and requiring redirection). Factors
that may be impacting include right sided stroke, acute encephalopathy, and Parkinson's disease.
Recommend:
1. Outpatient REGISTERED MASSAGE THERAPIST evaluation and treatment. Patient in agreement.
--- NOTE | 2024-10-06 12:30 | PTCARENOTE ---
Pt OOB to BR; had large amt dark brown BM; pt became pale/diaphoretic/ minimally responsive. Pt placed in chair with assist x3/transferred back to bed. Pt became awake and alert, oriented x3. BP 102/63 HR 82; telemetry:NSR. BM heme (+).
Susanna notified. Pt currently resting in bed. Will continue to monitor.
--- NOTE | 2024-10-06 12:43 | CON.GI ---
Consultation
-
Date/Time Consultation Performed: 10/06/2024
Performing Provider: Marky Cool MD
Reason for Consultation: melena
Medical History
Chief Complaint / HPI
Chief Complaint: melena
History of Present Illness:
The patient is a 83-year-old female with past medical history as noted who was admitted with change in mental status, ultimately found to have New 5 mm acute right occipital lobe infarct. Today when she was standing in the bathroom she had sudden
onset of lightheadedness, was diaphoretic. This was then followed by a large dark green/brown bowel movement per nursing. Currently he patient is feeling much better, denies any abdominal pain, nausea, vomiting. She does not take any NSAIDs at
home though has been on aspirin. She never had GI bleeding in the past, seen by Dr. Couch for chronic diarrhea, consistent with IBS-D.
Past Medical History
Past Medical History: Other (CVA, hypertension, breast cancer, high cholesterol, bioprosthetic aortic valve for bicuspid aortic valve in 2014, sleep apnea, anxiety, IBS-D)
Past Surgical History: Other (Bioprosthetic aortic valve replacement, cholecystectomy)
Social History
Tobacco: Non-Smoker
Alcohol: None
Family History
Family History: Reviewed & Not Pertinent
Allergies / Home Medications
Allergy/AdvReac Type Severity Reaction Status Date / Time
codeine (Codeine) Allergy hyperactivi Verified 09/19/24 09:44
ty
pollen extracts Allergy SEASONAL Verified 10/02/24 21:15
ALLERGIES-SNEEZING
simvastatin Allergy myalgia Verified 09/19/24 09:44
�Medication �Instructions �Recorded
lisinopril 20 mg tablet 20 mg PO DAILY Blood Pressure 09/20/24
loperamide 2 mg tablet 2 mg PO Q8HPRN PRN nausea/vomiting 09/20/24
metoprolol tartrate 50 mg tablet 50 mg PO BID Blood Pressure 09/20/24
mirtazapine 7.5 mg tablet 7.5 mg PO HS Sleep #0 tabs 07/01/25
L.acidophil-L.casei-B.bifid-B.longum-FOS 1 cap PO Q12H Supplement 10/02/24
2 billion cell-50 mg capsule
(Probiotic Blend)
Saccharomyces boulardii 250 mg 250 mg PO DAILY Supplement 10/02/24
capsule (Florastor)
acetaminophen 325 mg tablet 650 mg PO Q6HPRN PRN mild 10/02/24
(Tylenol) pain/temp>100F
amlodipine 5 mg tablet 5 mg PO DAILY Blood Pressure 10/02/24
bisacodyl 10 mg rectal suppository 10 mg [place] DAILYPRN PRN if MOM 10/02/24
(Dulcolax (bisacodyl)) ineffective
cholestyramine 4 gram oral powder 4 g PO DAILY Supplement 10/02/24
(Cholestyramine Light)
fosfomycin tromethamine 3 gram 3 g PO ONCE Urinary Issue 10/02/24
oral packet
magnesium hydroxide 400 mg/5 mL 30 ml PO [id number] PRN if no Bm x 3 10/02/24
oral suspension (Milk of Magnesia) days
multivitamin 1 tab PO DAILY Supplement 10/02/24
prednisone 10 mg tablet 10 mg PO DAILY INFLAMMATION 10/02/24
sodium phosphates 19 gram-7 118 ml [place] DAILYPRN PRN if supp 10/02/24
gram/118 mL enema (Fleet Enema) ineffective
thiamine HCl (vitamin B1) 100 mg 100 mg PO DAILY Supplement 10/02/24
tablet
zinc oxide 13 % topical cream 1 applic topical BID apply to 10/02/24
sacrum
Review of Systems
-
All other systems: A 12 pt ROS was Negative except as stated above in HPI
Vital Signs
Temp Pulse Resp BP Pulse Ox
97.9 F 82 16 102/63 99
10/06/24 11:34 10/06/24 12:30 10/06/24 11:34 10/06/24 12:30 10/06/24 11:34
Physical Exam
Results
WBC 7.3 10^3/uL (4.8-10.8) 10/05/24 03:44
Hgb 11.9 g/dL (12.0-16.0) L 10/05/24 03:44
Hct 36.8 % (37.0-47.0) L 10/05/24 03:44
MCV 91.3 fL (81.0-99.0) 10/05/24 03:44
Plt Count 114 10^3/uL (130-400) L D 10/05/24 03:44
PT 14.8 Sec (11.4-14.6) H 10/03/24 17:17
INR 1.13 10/03/24 17:17
APTT 24.7 Sec (23.4-35.0) 10/03/24 17:17
Sodium 144 mmol/L (135-145) 10/05/24 03:44
Potassium mmol/L (3.5-5.1) 10/05/24 03:44
Chloride 119 mmol/L (98-107) H 10/05/24 03:44
Carbon Dioxide 24 mmol/L (22-30) 10/05/24 03:44
BUN 31 mg/dl (7-17) H 10/05/24 03:44
Creatinine 0.4 mg/dL (0.6-1.0) L 10/05/24 03:44
Calcium 9.3 mg/dl (8.4-10.2) 10/05/24 03:44
Total Bilirubin 0.9 mg/dl (0.2-1.3) 10/05/24 03:44
AST 29 U/L (14-36) 10/05/24 03:44
ALT 30 U/L (0-35) 10/05/24 03:44
Alkaline Phosphatase 43 U/L (38-126) 10/05/24 03:44
Diagnostic Image Results:
Prior GI Procedures:
EGD:
Colonoscopy:
01/2023 (Dr Couch)
Colonoscopy for positive fecal occult blood testing. Good prep to the terminal ileum. External hemorrhoids, left-sided diverticulosis, mild granularity otherwise normal to the terminal ileum. No polyps or masses. Random biopsies were negative
for microscopic colitis. No repeat colonoscopy necessary
Assessment / Plan
-
1. Possible melena: Unclear if this was true bleeding as Per nursing was dark green/brown, though her hemoglobin has drifted down since admission, And also had mild thrombocytopenia in the . At this point she is hemodynamically stable. Will
repeat labs and continue to trend hemoglobin, reduce diet to clear liquids for now. Will tentatively plan for endoscopy tomorrow if she has worsening anemia or other signs of bleeding. Again, by report this was dark green/brown, and if still has
this color stool and stable hemoglobin we will hold on endoscopy given her recent CVA and trying to avoid sedation.
-
-
Thank you for consultation and allowing me to participate in the patient's care. Please call the simulation software engineer GI physician during the after hours with any questions or concerns.
--- NOTE | 2024-10-06 13:08 | CON.CAR ---
Addendum entered and electronically signed by Maximilian Adrian MD 10/06/24 15:28:
I saw and examined the patient.
The EVENT PLANNING MANAGER's note was reviewed and I agree with the note.
Primary machinist apprentice wood Dr. Phillip
83-year-old woman with history of bioprosthetic aortic valve replacement 2014, hypertension hypercholesterolemia ascending thoracic aortic aneurysm 4.1 cm and recent diagnosis of Parkinson's who initially presented with mental status change and
subsequently this admission had an acute CVA with left-sided weakness and facial droop on 10/05/2023 that was treated with TNK. Symptoms improved. Right occipital CVA noted. Of note patient had large dark heme positive stool. While in bathroom
was presyncopal and then symptoms resolved when she got in bed. No arrhythmias were recorded. Cardiology consult requested due to recent CVA. Exact etiology unclear
- Continue treatment of CVA as directed by neurology
- Aspirin 81 mg a day
- Monitor on telemetry
- Close monitoring of hemoglobin and any additional evidence of GI bleeding.
- Although DEENA could be considered in this patient with history of aortic valve replacement and CVA. I would not proceed with DEENA due to concerns of GI bleeding. Patient will need further assessment by GI and would need to be cleared by GI prior
to DEENA. Patient's already had a transthoracic study this admission which shows preserved left ventricular function and bioprosthetic aortic valve appears to be functioning well.
- Monitor on telemetry. If telemetry unremarkable then can consider additional longer-term outpatient cardiac monitoring.
- Of note patient's listed is being statin intolerant. At least intolerant to simvastatin. Full details regarding statin intolerance not clear. Will review outpatient record
Echo 10/06/24
Normal left ventricular systolic function.
Left ventricular ejection fraction is 55-60%.
Bioprosthetic aortic valve replacement.Peak gradient 26mmHg and mean 14mmHg.
Trace aortic regurgitation
Mild tricuspid regurgitation.
Compared to the previous echo05/16/24 there is no significant change.
Original Note:
Consultation
Consultation Request
Date/Time Consultation Requested: 10/06/24 1235
Date/Time Consultation Performed: 10/06/24 1320
Requesting Provider: Dr. Briones
Performing Provider: Samantha SINGH for Dr. Adrian
Reason for Consultation: stroke, cardiac evaluation
Medical History
-
Chief Complaint: change in MS
History of Present Illness:
83 y/o female with hx bicuspid aortic valve with bio AVR in 2015, HTN, LAFB, pulmonary HTN and mild sleep apnea (Dr. Clements), sciatica, dyslipidemia, ascending thoracic aortic aneurysm (4.1 cm) with reported recent Parkinson's diagnosis who is here
for evaluation of increased agitation/change MS. On 10/05/23 she had left-sided weakness and facial droop per chart. She was given TNK. Those symptoms have resolved. She is seen to have a right occipital lobe stroke. We are consulted to evaluate for
cardiac cause. However, she is noted to have decreased hgb and a large dark BM and is now being evaluated by GI.
Past Medical History
Past Medical History: Cancer (breast), HTN and Other (as above)
Social History
Tobacco: Non-Smoker
Family History
Family History: Reviewed & Not Pertinent
Allergies / Home Medications
Allergy/AdvReac Type Severity Reaction Status Date / Time
codeine (Codeine) Allergy hyperactivi Verified 09/19/24 09:44
ty
pollen extracts Allergy SEASONAL Verified 10/02/24 21:15
ALLERGIES-SNEEZING
simvastatin Allergy myalgia Verified 09/19/24 09:44
�Medication �Instructions �Recorded �Confirmed �Type
lisinopril 20 mg tablet 20 mg PO DAILY Blood Pressure 09/20/24 10/02/24 History
loperamide 2 mg tablet 2 mg PO Q8HPRN PRN nausea/vomiting 09/20/24 10/02/24 History
metoprolol tartrate 50 mg tablet 50 mg PO BID Blood Pressure 09/20/24 10/02/24 History
mirtazapine 7.5 mg tablet 7.5 mg PO HS Sleep #0 tabs 09/23/24 10/02/24 Rx
L.acidophil-L.casei-B.bifid-B.longum-FOS 1 cap PO Q12H Supplement 10/02/24 10/02/24 History
2 billion cell-50 mg capsule
(Probiotic Blend)
Saccharomyces boulardii 250 mg 250 mg PO DAILY Supplement 10/02/24 10/02/24 History
capsule (Florastor)
acetaminophen 325 mg tablet 650 mg PO Q6HPRN PRN mild 10/02/24 10/02/24 History
(Tylenol) pain/temp>100F
amlodipine 5 mg tablet 5 mg PO DAILY Blood Pressure 10/02/24 10/02/24 History
bisacodyl 10 mg rectal suppository 10 mg [place] DAILYPRN PRN if MOM 10/02/24 10/02/24 History
(Dulcolax (bisacodyl)) ineffective
cholestyramine 4 gram oral powder 4 g PO DAILY Supplement 10/02/24 10/02/24 History
(Cholestyramine Light)
fosfomycin tromethamine 3 gram 3 g PO ONCE Urinary Issue 10/02/24 10/02/24 History
oral packet
magnesium hydroxide 400 mg/5 mL 30 ml PO [id number] PRN if no Bm x 3 10/02/24 10/02/24 History
oral suspension (Milk of Magnesia) days
multivitamin 1 tab PO DAILY Supplement 10/02/24 10/02/24 History
prednisone 10 mg tablet 10 mg PO DAILY INFLAMMATION 10/02/24 10/02/24 History
sodium phosphates 19 gram-7 118 ml [place] DAILYPRN PRN if supp 10/02/24 10/02/24 History
gram/118 mL enema (Fleet Enema) ineffective
thiamine HCl (vitamin B1) 100 mg 100 mg PO DAILY Supplement 10/02/24 10/02/24 History
tablet
zinc oxide 13 % topical cream 1 applic topical BID apply to 10/02/24 10/02/24 History
sacrum
Review of Systems
-
Unable to obtain full review of systems at this time due to: Other (patient forgetful)
History Source: Patient and Other (chart)
All other systems: Negative unless noted
Neurological: Other (change in MS, increased agitation, left sided weakness and droop)
Physical Exam
Vital Signs
Temp Pulse Resp BP Pulse Ox
97.9 F 82 16 102/63 99
10/06/24 11:34 10/06/24 12:30 10/06/24 11:34 10/06/24 12:30 10/06/24 11:34
Lab Results
10/05/24 03:44
10/05/24 03:44
Troponin I 0.016 ng/ml 10/03/24 17:17
Physical Exam
General: Well Developed, Well Nourished and No Apparent Distress
HEENT: Normocephalic and Anicteric
Respiratory: Clear and Non Labored Respirations
Cardiac: Regular Rhythm
Musculoskeletal: No Edema
Skin: Warm and Dry
Neuro: Awake, AO x 3 and Other (seems forgetful)
Psych: Calm
Impression / Plan
-
Stroke:
-MRI: New small 5 mm acute infarct in the subcortical white matter of the right occipital lobe.
-this diagnosis is threat to bodily function
-s/p TNK
-management per neurology
-now on ASA
-patient is being worked-up for possible GIB, so will not plan for invasive cardiac eval (such as DEENA/loop) at this time
-echo and tele unremarkable- continue to follow telemetry
Hx Bio AVR:
-stable by echo
HTN:
-continue meds and monitor
Anemia, possible GIB:
-GI following- note reviewed and planning for endoscopy tomorrow if hemoglobin continues to drop or other signs bleeding, but holding off if stable
Ascending aortic aneurysm:
-has been stable (4.1 cm on recent imaging as above)
-continue BB
Change MS/increased agitation (presenting symptom prior to stroke):
-psych has been on the case
Data Reviewed
-
EKG: Tracing Personally Visualized and interpreted (SR with PAC's, LAD- stable)
MRI: Report Reviewed by me (Brain MRI: New small 5 mm acute infarct in the subcortical white matter of the right occipital lobe.)
Medical Tests (Nuc Med, Echo etc): Report Reviewed by me (PET CT STRESS 09/09/24: no evidence for ischemic EF 76% fusiform aneurysmal dilatation of ascending aorta measuring up to 4.1 cm ) and Other (echo 10/06/24: Normal left ventricular systolic
function. Left ventricular ejection fraction is 55-60%. Bioprosthetic aortic valve replacement.Peak gradient 26mmHg and mean 14mmHg. Trace aortic regurgitation Mild tricuspid regurgitation.)
Labs: Labs Reviewed by me
[2024-10-06] MEDS: QUESTRAN 4 GRAM PO (13:58)
[2024-10-06] MEDS: PROTONIX IV 40 MG IV (13:58)
[2024-10-06] MEDS: NSS (PRESERVATIVE FREE) 10 ML IV (13:59)
--- NOTE | 2024-10-06 14:28 | PTCARENOTE ---
Pt OOB to BSC- had loose dark brown BM; pt again became pale with decreased responsiveness. Pt lifted back into bed with assist x2- woke up immediately after return to bed/head flat. Telemetry-NSR, no rhythm changers noted during episode.
Anali notified. Will continue to monitor.
[2024-10-06 14:49] LABS: Hematocrit 31.1 % (37.0-47.0); Hemoglobin 10.2 g/dL (12.0-16.0); Mean Corp Hgb Conc. 32.8 g/dL (33.0-37.0); Mean Corpuscular Volume 92.6 fL (81.0-99.0); Platelet Count 120 10^3/uL (130-400); Red Cell Dist. Width 13.2 % (11.5-14.5)
--- NOTE | 2024-10-06 15:40 | CM ---
Met with patient to discuss discharge planning. Patient stated that she has been speaking with her family and understands that she will need further rehab and possibly [facility] care placement.
Placed a call to patient's daughter in law and sonChris who agreed that patient needs 24 hr care. Patient's son and daughter in law stated that they are thinking of hiring 24 cg and have already spoken to an agency. They also requested VN.
Patient's son and daughter in law stated that this is the way that they are leaning, would discuss it and return call to . They also have completed applications for [facility] and for [facility]. Will send referrals.
Plan: Case management will continue to follow and assist with discharge planning. SNF to ltc vrs home with 24 hr cg and home health.
--- NOTE | 2024-10-06 16:39 | PTCARENOTE ---
Pt AAO x3, but forgetful. BAH well, unsteady w/OOB activity. Pt aware of need for bedrest at present d/t prior 2 episodes of decreased LOC when OOB in BR/on BSC. Able to position self in bed.VSS. Telemetry:NSR. On room air- pulse ox 94%. Abd
soft, rounded, pt having small amts loose progressively darker brown BM's; Dr. Cool aware. pt to be on clear liquid diet; aware of NPO past midnight for possible GI procedure 10/07. Voids in BR/on BSC without difficulty. Resting in bed at
present. Will continue to monitor.
--- NOTE | 2024-10-06 18:25 | PTCARENOTE ---
Pt for transfer to IMU room [address] Briones. Report given to Yonas REED. Pt transferred via bed with all personal belongings. Condition stable at time of transfer. Daughter aware of pt transfer to IMU.
--- NOTE | 2024-10-06 18:37 | PTCARENOTE ---
Pt from 4th floor with low bp aaaox# ON BEDREST . dAUGHTER AT BEDSIDE. lr ORDERED. NO 250 BAG NEED ORDER CHANGED DR GARCIA TT
[2024-10-06] MEDS: LR 500 IV (20:13)
[2024-10-06] MEDS: PROTONIX 100 IV (21:13)
[2024-10-06] MEDS: LOPRESSOR PO (21:17)
[2024-10-06] MEDS: REMERON PO (22:35)
[2024-10-07] VITALS (32 sets, daily range): BP systolic 88–139; BP diastolic 40–102
--- NOTE | 2024-10-07 00:36 | PTCARENOTE ---
Assumed care of Pt from day RN. Pt needing other IV site, VAT to bed side when available. Orders seen for 1 unit PRBC, see TAR for admin. BP's remain soft at this time. EDUCATIONAL PROGRAM DIRECTOR made aware. Protonix started. Pt has no complains of pain at this time. Pt
continues to have melena stool. Will follow with H&H when lab is able to process.
[2024-10-07 02:09] LABS: Hematocrit 27.5 % (37.0-47.0); Hemoglobin 9.1 g/dL (12.0-16.0); Mean Corp Hgb Conc. 33.1 g/dL (33.0-37.0); Mean Corpuscular Volume 90.5 fL (81.0-99.0); Platelet Count 109 10^3/uL (130-400); Red Cell Dist. Width 13.4 % (11.5-14.5)
[2024-10-07 02:46] LABS: Blood Urea Nitrogen 49 mg/dl (7-17); Calcium 8.8 mg/dl (8.4-10.2); Carbon Dioxide 28 mmol/L (22-30); Chloride 117 mmol/L (98-107); Estimated Creatinine Clearance 55 ml/min; Glucose 123 mg/dl (70-99); Magnesium 1.9 mg/dl (1.6-2.3); Potassium 3.9 mmol/L (3.5-5.1); Sodium 143 mmol/L (135-145); eGFR > 60.00
--- NOTE | 2024-10-07 06:55 | PTCARENOTE ---
Pt bladder scanned, see work list for amounts and voids.
--- NOTE | 2024-10-07 08:39 | W.PN.GI.CBS2 ---
Today's Communication / Plan
-
Hgb dropped down to 9.1 despite PRBC
HR elevated and BP borderline
Will plan EGD today to treat likely UGIB in setting of recent fibrinolytic for CVA
I discussed with son and daughter who consented for procedure
Assessment / Plan
-
Impression:
Melena
Acute blood loss anemia
Admitted with CVA s/p TNK 10/03
10/06/24- 1 unit PRBC
Subjective
Subjective
Date of Service: October 07, 2024
Awake and alert. Denies abd pain. Passing multiple dark BMs overnight.
Objective
Data Reviewed
Laboratory Data:
Laboratory Results
10/07/24 01:55
Laboratory Results
PT 14.8 Sec (11.4-14.6) H 10/03/24 17:17
INR 1.13 10/03/24 17:17
APTT 24.7 Sec (23.4-35.0) 10/03/24 17:17
Magnesium 1.9 mg/dl (1.6-2.3) 10/07/24 01:55
Total Bilirubin 0.9 mg/dl (0.2-1.3) 10/05/24 03:44
AST 29 U/L (14-36) 10/05/24 03:44
ALT 30 U/L (0-35) 10/05/24 03:44
Alkaline Phosphatase 43 U/L (38-126) 10/05/24 03:44
Vital Signs and I&O:
Vital Signs
Temp Pulse Resp BP Pulse Ox
98.1 F 105 21 92/64 100
10/07/24 02:47 10/07/24 07:03 10/07/24 07:03 10/07/24 07:03 10/07/24 07:03
I&O
10/06/24 10/07/24 10/08/24
06:59 06:59 06:59
Intake Total 855 / 855 1569 / 1569
Output Total 200 / 200
Balance 655 / 655 1569 / 1569
Physical Exam
Physical Exam
GI: Soft, Non Distended and Non Tender
--- NOTE | 2024-10-07 09:04 | PTOTSP ---
Reviewed chart and events noted. Pt transferred form 4th floor to IMU and on bedrest. PT and OT orders were not continued upon this transfer. Will need new orders for PT and OT when stable to resume therapy activity.
--- NOTE | 2024-10-07 09:20 | W.PN.CD ---
Today's Communication / Plan
-
EGD results as noted.
Continue to monitor for bleeding. Additional treatment of GI bleed, duodenal ulcer and anemia as per GI and primary team
Patient tachycardic appears to be sinus tachycardia. Patient remains off metoprolol due to blood pressure. Continue treatment of anemia and GI bleed
- ECG
Impression / Plan
-
Stroke:
-MRI: New small 5 mm acute infarct in the subcortical white matter of the right occipital lobe.
-s/p TNK
-management per neurology
-now on ASA
-patient with acute GI bleeding this admission and evidence of ulcer on EGD no plan for DEENA at this time
- Continue treatment as directed by neuro. Would consider longer outpatient cardiac monitoring could do 30-day Holter at time of discharge. Holding off on additional procedures such as ILR with acute GI bleed.
.
GIB bleed. Patient with large dark bowel movement yesterday and has had trending down hemoglobin.
- seen by GI.
- EGD with duodenal ulcer with some oozing that was treated also small ulcer involved.
-Management directed by GI
.
Tachycardia telemetry suggestive of sinus tachycardia. Patient's systolic blood pressure 98
. Remains off metoprolol and lisinopril due to blood pressure
- Continue treatment of anemia and GI bleed
- Eventually resume metoprolol when blood pressure has improved
-ECG
Hx Bio AVR:
-stable by echo
HTN: Monitor
e
Ascending aortic aneurysm:
-has been stable (4.1 cm on recent imaging as above)
-continue BB
Change MS/increased agitation (presenting symptom prior to stroke):
-psych has been on the case
Physical Exam
Vital Signs/Labs
Vital Signs
Temp Pulse Resp BP Pulse Ox
98.2 F 105 21 92/64 100
10/07/24 07:01 10/07/24 07:03 10/07/24 07:03 10/07/24 07:03 10/07/24 07:03
10/07/24 01:55
PT 14.8 Sec (11.4-14.6) H 10/03/24 17:17
INR 1.13 10/03/24 17:17
APTT 24.7 Sec (23.4-35.0) 10/03/24 17:17
Magnesium 1.9 mg/dl (1.6-2.3) 10/07/24 01:55
Physical Exam
Constitutional: No acute distress
Cardiovascular: Rhythm & rate is regular
Respiratory: Wheeze Absent and Rhonchi Absent
GI: Soft, Non tender and Normal bowel sounds
Neuro/Psych: Alert
Data Reviewed
-
Date of Service: October 07, 2024
Medical Decision Making: Reviewed Test Results
EKG: Report Reviewed by me
Echo: Report Reviewed by me
Medical Tests (PFT, Pathology etc): Report Reviewed by me
[2024-10-07] MEDS: LOPRESSOR PO (09:50)
[2024-10-07] MEDS: NORVASC PO (09:51)
--- NOTE | 2024-10-07 10:01 | W.PN.UPDATE ---
Update Note
Progress Note Update
EGD done
5mm ulcer second part duodenum with superficial oozing- cauterized w bipolar probe
3mm clean based ulcer in bulb
REC:
NPO
Follow Hgb
If stable and bleeding stops, OK to advance diet
If ongoing bleeding, may repeat EGD or consider colonoscopy. Stigmata seen on EGD did not seem to match drop in Hgb, but perhaps she is equilibrating from bleed at time of fibrinolytics 4 days ago.
I updated son and daughter
--- NOTE | 2024-10-07 11:05 | W.PN.HOSP.TC ---
Today's Communication/Plan
-
EGD with ulcers which explains patient's Hgb drop and melena -- this is in the setting of tNK use and Aspirin
Will resume Aspirin when okay with GI
Continue Protonix Drip
Continue NPO until Hgb stable and patient has no further bleeding
Continue to monitor in IMU
Assessment / Plan
Assessment / Plan
Physical Exam
General: Well Developed and Well Nourished. Not in distress.
HEENT: Normocephalic, Atraumatic
Respiratory: Clear to Auscultation Bilaterally
Cardiac: S1/S2, Regular Rhythm and + Murmur
GI: Soft, non tender. Positive bowel sounds.
Musculoskeletal: No Clubbing and No Cyanosis
Skin: Warm and Dry
Neuro: Awake, Alert and oriented to surroundings, answering questions, she followed commands.
Psych: calm, no agitation
Assessment/Plan
#Melena 10/06/24 -- from 5mm ulcer second part duodenum with superficial oozing- cauterized w bipolar probe and 3mm clean based ulcer in bulb on EGD from 10/07/24
#New, progressive anemia, suspected from upper GI Bleed
#Hypotension and Tachycardia suspected from upper GI bleed
#Vasovagal Episodes during bowel movements 10/06/24
-Patient is status post TNK a few days ago on 10/03/24, currently on Aspirin (last dose of Aspirin was 10/06/24 morning)
-Hold Aspirin for now
-Continue PPI Drip
-Continue NPO at this time
-Appreciate gastroenterology -- EGD performed this morning, results are above
-1 unit PRBC given concern for active GI bleeding
-IV fluid bolus previously given hypotension
-Continue close monitoring in the IMU
-Continue to monitor Hgb and transfuse Hgb as needed to maintain Hgb>7.5, for any significant drop in Hgb, or for any hemodynamic instability or concerning symptoms thought to be from bleeding/anemia
#Stroke alert status post TNK administration
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
Patient was recently here for visual hallucination and confusion. Was seen by psychiatrist and neurologist Dr. Christensen, deemed to have possible Parkinson disease. Decided not to treat Parkinson , continue home dose of Remeron, and was discharged
She was readmitted this time with confusion, refused her home pills, dementia like picture. She was seen by psychiatrist, Decided to continue with Remeron and possible use of Seroquel if needed. Patient ( same day) had code stroke, she developed
left hemiparesis and right gaze. She was given tenecteplase and was in the ICU
Sudden onset of acute left sided hemiplegia/ left facial droop, right gaze s/p TNK on 10/03. CTA no acute bleeding
Started to improve since then, no pronator drift on exam, followed commands
Speech is back to her baseline which has been nonfluent for a few weeks (prior to presentation) according to the family
MRI of brain with new small 5 mm acute infarct in the subcortical white matter of the right occipital lobe
Echo without any clots
When resuming solid food, follow speech recommendations (currently patient is NPO)
Appreciate neurology
Appreciate cardiology given suspected embolic stroke -- consider longer outpatient cardiac monitoring could do 30-day Holter at time of discharge -- no additional cardiac procedures (e.g. no ILR given GI bleeding)
#Ascending Aortic Aneurysm
-When hypotension and bleeding have resolved, continue beta patricio
#History of Bio AVR
-Stable by echo
#She presented with increased Confusion & Agitation and Paranoia
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
She was evaluated by psych, at one pint was considering Seroquel , she was on Remeron at home
Presented with hx of not taking her medications .
#Noncompliance with medications outpatient
#Acute urinary retention
Status post empiric Rocephin. Urine cultures negative
s/p Yin
#Patient was seen by neurologist last admission and diagnosed with possible Parkinson's Disease with Visual Hallucinations
Possible new onset based on exam, no prior hx of Parkinson disease
-Patient evaluated by Neurology last admission and decision was made not to start medication
-Appreciate psychiatry
# Essential Hypertension
Avoid antihypertensives for now given hypotension and GI bleed
# Irritable Bowel Syndrome - Diarrhea predominant
-Continue probiotics and cholestyramine
#Severe protein calorie malnutrition of chronic illness
DVT Prophylaxis: SCDs. No chemical DVT prophylaxis given suspected bleeding and upper GI Bleed.
Code Status: DNR - Dr. Ace confirmed with family at the time of admission
On 10/06/24, I spoke multiple times to patient's son Chris and I also spoke to patient's daughter Ariadna, they were in full agreement with the management plan above including management for hypotension, anemia and suspected GI bleeding.
Hypotension, worsening anemia in the setting of gastrointestinal ulcers and bleeding is a high risk encounter.
Anticipated Discharge: 24 - 48 hours
Subjective/Interval History
-
Date of Service: October 07, 2024
Patient was seen and examined. She denied any symptoms or complaints.
Objective Data
-
Labs:
Laboratory Results
10/07/24 10/07/24 10/07/24
01:55 01:55 01:55
WBC 9.9
Hgb 9.1 L Cancelled
Hct 27.5 L Cancelled
Plt Count 109 L
Sodium 143
Potassium 3.9
Chloride 117 H
Carbon Dioxide 28
BUN 49 H
Creatinine 0.5 L
Glucose 123 H
Calcium 8.8
10/07/24
13:00
WBC
Hgb Pending
Hct Pending
Plt Count
Sodium
Potassium
Chloride
Carbon Dioxide
BUN
Creatinine
Glucose
Calcium
Vital Signs:
Vital Signs
Temp Pulse Resp BP Pulse Ox
98.2 F 108 24 109/68 100
10/07/24 10:31 10/07/24 10:15 10/07/24 10:15 10/07/24 10:31 10/07/24 10:31
I&O
10/06/24 10/07/24 10/08/24
06:59 06:59 06:59
Intake Total 855 / 855 1570 / 1570
Output Total 200 / 200
Balance 655 / 655 1570 / 1570
[2024-10-07] MEDS: PROTONIX 100 IV ×2 (11:10→21:26)
--- NOTE | 2024-10-07 12:01 | PN.CDI ---
CDI
- -
CDI:
Physician Documentation Request
Admit Date: 10/03/24 16:11
Dear Doctor Anali,
Please review the following and provide your response in the progress notes.
Clinical Indicators:
[employer], 10/07
#18lb, significant 15.4% wt loss x 1 month.
#Pt meets criteria for severe protein calorie malnutrition of chronic illness with >5% wt loss
#...in 1 month, prolonged poor intake prior to admit <75% for >1 month
#...with change in mental status.
Based on the above information and your assessment, which of the following most accurately represents the patient's nutritional status?
Severe protein calorie malnutrition of chronic illness
Other (please specify)
[place] Criteria ([facility] Hospitalist 2017)
2 or more criteria must be present for either
non severe or severe malnutrition
Note that the criteria differs related to the
presence of an acute or chronic illness
Chronic Illness
Energy Intake Non Severe: <75% for >1 month
Severe: <75% for >1 month
Weight Loss Non Severe: 5% over 1 month
7.5% over 3 months
10% over 6 months
20% over 1 year
Severe: >5% over 1 month
>7.5% over 3 months
>10% over 6 months
>20% over 1 year
Body Fat Non Severe: Mild Loss
Severe: Severe Loss
Muscle Mass Non Severe: Mild Loss
Severe: Severe Loss
Use of terms such as suspected, likely, concern for, or probable (associated with a specific diagnosis that is being evaluated, monitored, or treated as if it exists) are acceptable and can be coded in the inpatient setting, when documented at the
time of discharge.
Thank you,
Silva Negrete RN BSN CCDS
CDI Specialist
Please contact via tiger text
Please use your independent medical judgment in providing your response.
[2024-10-07] MEDS: QUESTRAN PO (12:36)
--- NOTE | 2024-10-07 13:59 | PTCARENOTE ---
Attempts to obtain 1300 labs unsuccessful. Phlebotomy paged.
[2024-10-07 14:57] LABS: Hematocrit 25.6 % (37.0-47.0); Hemoglobin 8.5 g/dL (12.0-16.0)
--- NOTE | 2024-10-07 17:37 | PTCARENOTE ---
Pt's assessment as documented. Aox3, forgetful. NIH of 0. To and from GI lab. VSS. Care as documented. Able to make needs known, call alvarado within reach. Bed alarm in place for safety.
[2024-10-07] MEDS: REMERON 7.5 MG PO (21:26)
[2024-10-07] MEDS: LOPRESSOR 50 MG PO (21:26)
[2024-10-07 22:11] LABS: Hematocrit 23.7 % (37.0-47.0); Hemoglobin 7.8 g/dL (12.0-16.0); Mean Corp Hgb Conc. 32.9 g/dL (33.0-37.0); Mean Corpuscular Volume 90.8 fL (81.0-99.0); Platelet Count 105 10^3/uL (130-400); Red Cell Dist. Width 13.6 % (11.5-14.5)
[2024-10-08] VITALS (17 sets, daily range): BP systolic 86–152; BP diastolic 53–97
--- NOTE | 2024-10-08 02:07 | PTCARENOTE ---
Pt having mod soft loose burgundy stool. Pt vitals stable at this time. Pt only complaint at this time is she wants gingerale. Education given about Upper GI endoscopy procedure and giving stomach rest. Call alvarado within reach bed alarm on.
[2024-10-08 05:14] LABS: Hematocrit 22.4 % (37.0-47.0); Hemoglobin 7.4 g/dL (12.0-16.0); Mean Corp Hgb Conc. 33.0 g/dL (33.0-37.0); Mean Corpuscular Volume 91.1 fL (81.0-99.0); Platelet Count 100 10^3/uL (130-400); Red Cell Dist. Width 13.6 % (11.5-14.5)
[2024-10-08 05:30] LABS: Blood Urea Nitrogen 37 mg/dl (7-17); Calcium 9.1 mg/dl (8.4-10.2); Carbon Dioxide 30 mmol/L (22-30); Chloride 117 mmol/L (98-107); Estimated Creatinine Clearance 55 ml/min; Glucose 85 mg/dl (70-99); Potassium 3.9 mmol/L (3.5-5.1); Sodium 144 mmol/L (135-145); eGFR > 60.00
[2024-10-08] MEDS: NORVASC PO (08:08)
[2024-10-08] MEDS: LOPRESSOR PO (08:08)
--- NOTE | 2024-10-08 08:41 | W.PN.HOSP.TC ---
Today's Communication/Plan
-
See below
Assessment / Plan
Assessment / Plan
Physical Exam
General: Well Developed and Well Nourished. Not in distress.
HEENT: Normocephalic, Atraumatic
Respiratory: Clear to Auscultation Bilaterally
Cardiac: S1/S2, Regular Rhythm and + Murmur
GI: Soft, non tender. Positive bowel sounds.
Musculoskeletal: No Clubbing and No Cyanosis
Skin: Warm and Dry
Neuro: Awake, Alert and oriented to surroundings, answering questions, she followed commands.
Psych: calm, no agitation
Assessment/Plan
#Melena 10/06/24 -- from 5mm ulcer second part duodenum with superficial oozing- cauterized w bipolar probe and 3mm clean based ulcer in bulb on EGD from 10/07/24
#New, progressive anemia, suspected from upper GI Bleed
#Hypotension and Tachycardia suspected from upper GI bleed
#Vasovagal Episodes during bowel movements 10/06/24
-Patient is status post TNK a few days ago on 10/03/24, currently on Aspirin (last dose of Aspirin was 10/06/24 morning)
-Hold Aspirin for now
-Continue PPI Drip
-Continue NPO at this time
-Appreciate gastroenterology -- EGD performed this morning, results are above
-1 unit PRBC given concern for active GI bleeding
-IV fluid bolus previously given hypotension
-Continue close monitoring in the IMU
-10/08/24 morning update: patient continues with hypotension, with reports of melena and red colored stool overnight -- Dr. Rodriguez considering doing EGD again (and perhaps colonoscopy)
-2nd unit PRBC to be given on 10/08/24 in setting of Hgb drop, continued rectal bleeding
-Continue to monitor Hgb and transfuse Hgb as needed to maintain Hgb>7.5, for any significant drop in Hgb, or for any hemodynamic instability or concerning symptoms thought to be from bleeding/anemia
#Stroke alert status post TNK administration
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
Patient was recently here for visual hallucination and confusion. Was seen by psychiatrist and neurologist Dr. Christensen, deemed to have possible Parkinson disease. Decided not to treat Parkinson , continue home dose of Remeron, and was discharged
She was readmitted this time with confusion, refused her home pills, dementia like picture. She was seen by psychiatrist, Decided to continue with Remeron and possible use of Seroquel if needed. Patient ( same day) had code stroke, she developed
left hemiparesis and right gaze. She was given tenecteplase and was in the ICU
Sudden onset of acute left sided hemiplegia/ left facial droop, right gaze s/p TNK on 10/03. CTA no acute bleeding
Started to improve since then, no pronator drift on exam, followed commands
Speech is back to her baseline which has been nonfluent for a few weeks (prior to presentation) according to the family
MRI of brain with new small 5 mm acute infarct in the subcortical white matter of the right occipital lobe
Echo without any clots
When resuming solid food, follow speech recommendations (currently patient is NPO)
Appreciate neurology
Appreciate cardiology given suspected embolic stroke -- consider longer outpatient cardiac monitoring could do 30-day Holter at time of discharge -- no additional cardiac procedures (e.g. no ILR given GI bleeding)
#Chest Pain on 10/08/24 - RESOLVED
-Suspected from anxiety
-Checked EKG (okay), troponins, proBNP (unremarkable), CXR (unremarkable), CMP (unremarkable), CBC (acceptable)
-No respiratory distress, fever, chills, hypotension, new flank or back pain, any source of bleeding other than rectal bleeding, itching, new rash or hypoxia
#Ascending Aortic Aneurysm
-When hypotension and bleeding have resolved, continue beta patricio
-has been stable (4.1 cm on recent imaging as above)
#Thrombocytopenia
-Likely from consumption from bleeding above
#History of Bio AVR
-Stable by echo
#She presented with increased Confusion & Agitation and Paranoia
She became less agitated, she had Mitts and patient safety sitter
She was evaluated by psych, at one pint was considering Seroquel , she was on Remeron at home
Presented with hx of not taking her medications .
#Noncompliance with medications outpatient
#Acute urinary retention
Status post empiric Rocephin. Urine cultures negative
s/p Yin
#Patient was seen by neurologist last admission and diagnosed with possible Parkinson's Disease with Visual Hallucinations
Possible new onset based on exam, no prior hx of Parkinson disease
-Patient evaluated by Neurology last admission and decision was made not to start medication
-Appreciate psychiatry
# Essential Hypertension
Avoid antihypertensives for now given hypotension and GI bleed
# Irritable Bowel Syndrome - Diarrhea predominant
-Continue probiotics and cholestyramine
#Severe protein calorie malnutrition of chronic illness
DVT Prophylaxis: SCDs. No chemical DVT prophylaxis given suspected bleeding and upper GI Bleed.
Code Status: DNR - Dr. Ace confirmed with family at the time of admission
On 10/06/24, I spoke multiple times to patient's son Chris and I also spoke to patient's daughter Ariadna, they were in full agreement with the management plan above including management for hypotension, anemia and suspected GI bleeding.
Anemia in the setting of gastrointestinal ulcers and continued bleeding is a high risk encounter.
Anticipated Discharge: > 48 hours
Subjective/Interval History
-
Date of Service: October 08, 2024
Patient was seen and examined. She had chest pain this afternoon, suspected from anxiety.
Objective Data
-
Labs:
Laboratory Results
10/07/24 10/08/24
21:50 04:56
WBC 9.3 8.2
Hgb 7.8 L 7.4 L
Hct 23.7 L 22.4 L
Plt Count 105 L 100 L
Sodium 144
Potassium 3.9
Chloride 117 H
Carbon Dioxide 30
BUN 37 H
Creatinine 0.6
Glucose 85
Calcium 9.1
Vital Signs:
Vital Signs
Temp Pulse Resp BP Pulse Ox
97.5 F 81 11 95/80 97
10/08/24 07:30 10/08/24 04:00 10/08/24 04:00 10/08/24 08:08 10/08/24 04:00
I&O
10/07/24 10/08/24 10/09/24
06:59 06:59 06:59
Intake Total 1570 / 1570 120 / 120
Balance 1570 / 1570 120 / 120
--- NOTE | 2024-10-08 08:53 | W.PN.GI.CBS2 ---
Today's Communication / Plan
-
Hgb has dropped to 7.4, passed burgundy this am
Will give 1 unit PRBC, discussed with Hospitalist
Check Hgb q8.
If ongoing bleeding, drop in Hgb, will repeat EGD to look for ongoing PUD bleeding. It was difficult to visualize duodenal bulb/2nd portion completely as scope would flip back during withdrawal. She could have another DU
Alternativelyl, could have colonic bleed. Her BUN is decreasing and if she has brighter bleeding, may consider colonoscopy as well
Cont protonix gtt, NPO.
Hold ASA for now. Will resume DAYAN
I updated son Chris and daughter Ariadna.
Assessment / Plan
-
Impression:
Melena/burgundy BM
Two duodenal ulcers, one oozing superficially in second portion.
Acute blood loss anemia
Admitted with CVA s/p TNK 10/03
10/06/24- 1 unit PRBC
Subjective
Subjective
Date of Service: October 08, 2024
Passed [employer] this am. Denies complaints
Objective
Data Reviewed
Laboratory Data:
Laboratory Results
10/08/24 04:56
Laboratory Results
PT 14.8 Sec (11.4-14.6) H 10/03/24 17:17
INR 1.13 10/03/24 17:17
APTT 24.7 Sec (23.4-35.0) 10/03/24 17:17
Magnesium 1.9 mg/dl (1.6-2.3) 10/07/24 01:55
Total Bilirubin 0.9 mg/dl (0.2-1.3) 10/05/24 03:44
AST 29 U/L (14-36) 10/05/24 03:44
ALT 30 U/L (0-35) 10/05/24 03:44
Alkaline Phosphatase 43 U/L (38-126) 10/05/24 03:44
Vital Signs and I&O:
Vital Signs
Temp Pulse Resp BP Pulse Ox
97.5 F 81 11 95/80 97
10/08/24 07:30 10/08/24 04:00 10/08/24 04:00 10/08/24 08:08 10/08/24 04:00
I&O
10/07/24 10/08/24 10/09/24
06:59 06:59 06:59
Intake Total 1570 / 1570 120 / 120
Balance 1570 / 1570 120 / 120
Physical Exam
Physical Exam
GI: Soft, Non Distended and Non Tender
[2024-10-08] MEDS: PROTONIX 100 IV ×3 (09:09→19:24)
[2024-10-08 10:04] LABS: Hematocrit 22.3 % (37.0-47.0); Hemoglobin 7.2 g/dL (12.0-16.0)
--- NOTE | 2024-10-08 11:08 | CM ---
Patient with Hx Parkinsons Disease with Dx stroke, GIB. Plan transfusion today. Room air. Receiving Protonix gtt. PT/OT recommend skilled rehab. Per nurse; forgetful.
Spoke with patient's son Chris;
Chris states patient received new diagnoses of Parkinsons Dz and dementia 3 weeks ago.
He discussed disposition options with the family and due to the patient's dementia, he feels it's best to have her return home to her apartment at d/c to be in familiar surroundings, and have 24 hr care.
He has set patient up with 24 hr caregivers through [facility].
Discussed VN for nurse/PT/OT and offered HH agency choices; he chose [facility].
Patient's home address confirmed with son:
[address]
[place]
Referral to [facility].
Plan home with [facility] and 24 hr caregivers.
--- NOTE | 2024-10-08 11:41 | VNURNOTE ---
Home Health Liaison spoke with patient's son Chris to discuss [facility] nurse/therapy, visits, schedule and homebound status. He is agreeable and understands that visits at home will be 2-3 x per week to assess and teach medical management. He confirms
that 24hr caregivers will be set up when pt goes home. Provided son with PM [facility] contact information. Son is aware that [facility] will contact them for start of care in 1-2 days after discharge from .
[facility] referral completed in [facility].
[2024-10-08] MEDS: QUESTRAN PO (13:01)
--- NOTE | 2024-10-08 14:35 | PTCARENOTE ---
Pt with large liquid bowel movement, black in color. Dr Rodriguez and Dr. Briones notified via TT.
--- NOTE | 2024-10-08 16:03 | PTCARENOTE ---
Pt c/o chest pain. Dr. Briones and Dr. Rodriguez notified. EKG obtained. VSS. Upon reassessment, pt states she now feels fine. notified. Labs to be drawn. Pt and family updated on plan.
[2024-10-08 16:55] LABS: Hematocrit 26.3 % (37.0-47.0); Hemoglobin 8.7 g/dL (12.0-16.0); Mean Corp Hgb Conc. 33.1 g/dL (33.0-37.0); Mean Corpuscular Volume 90.1 fL (81.0-99.0); Platelet Count 103 10^3/uL (130-400); Red Cell Dist. Width 14.5 % (11.5-14.5)
[2024-10-08 17:17] LABS: ALT (SGPT) 30 U/L (0-35); AST (SGOT) 33 U/L (14-36); Albumin 3.1 g/dl (3.5-5.0); Alkaline Phosphatase 40 U/L (38-126); Blood Urea Nitrogen 30 mg/dl (7-17); Calcium 9.2 mg/dl (8.4-10.2); Carbon Dioxide 29 mmol/L (22-30); Estimated Creatinine Clearance 55 ml/min; Glucose 77 mg/dl (70-99); Total Protein 5.2 g/dl (6.3-8.2); eGFR > 60.00
[2024-10-08 17:21] LABS: Troponin I < 0.012 ng/ml
[2024-10-08 17:26] LABS: Chloride 113 mmol/L (98-107); Potassium 4.4 mmol/L (3.5-5.1); Sodium 144 mmol/L (135-145)
--- NOTE | 2024-10-08 17:31 | W.PN.CD ---
Today's Communication / Plan
-
No AF seen on tele
Cont monitor
Likely 30 day monitor on discharge
Impression / Plan
-
Stroke:
-MRI: New small 5 mm acute infarct in the subcortical white matter of the right occipital lobe.
-s/p TNK
-management per neurology
-now on ASA
-patient with acute GI bleeding this admission and evidence of ulcer on EGD no plan for DEENA at this time
- Continue treatment as directed by neuro. Would consider longer outpatient cardiac monitoring could do 30-day Holter at time of discharge. Holding off on additional procedures such as ILR with acute GI bleed.
.
GIB bleed. Patient with large dark bowel movement yesterday and has had trending down hemoglobin.
- seen by GI.
- EGD with duodenal ulcer with some oozing that was treated also small ulcer involved.
-Management directed by GI
.
Tachycardia telemetry suggestive of sinus tachycardia. Patient's systolic blood pressure 98
. Remains off metoprolol and lisinopril due to blood pressure
- Continue treatment of anemia and GI bleed
- Eventually resume metoprolol when blood pressure has improved
- monitor tele
Hx Bio AVR:
-stable by echo
HTN: Monitor
e
Ascending aortic aneurysm:
-has been stable (4.1 cm on recent imaging as above)
-continue BB
Change MS/increased agitation (presenting symptom prior to stroke):
-psych has been on the case
Subjective: feeling well mildly confused
Physical Exam
Vital Signs/Labs
Vital Signs
Temp Pulse Resp BP Pulse Ox
97.9 F 90 22 111/95 95
10/08/24 15:43 10/08/24 13:45 10/08/24 13:45 10/08/24 13:45 10/08/24 12:00
10/08/24 16:37
10/08/24 16:37
PT 14.8 Sec (11.4-14.6) H 10/03/24 17:17
INR 1.13 10/03/24 17:17
APTT 24.7 Sec (23.4-35.0) 10/03/24 17:17
Magnesium 1.9 mg/dl (1.6-2.3) 10/07/24 01:55
10/08/24
16:37
[address]
LAB Results
10/08/24
16:37
Troponin I < 0.012
Physical Exam
Constitutional: No acute distress
EENT: Anicteric
Cardiovascular: Rhythm & rate is regular
Respiratory: Respiratory effort normal and Lungs clear to auscul.
GI: Soft
Neuro/Psych: Alert and Oriented
Data Reviewed
-
Date of Service: October 08, 2024
EKG: Tracing Personally Visualized and interpreted (sr)
Labs: Labs Reviewed by me
[2024-10-08] MEDS: LOPRESSOR 50 MG PO (20:28)
[2024-10-08] MEDS: TYLENOL 650 MG PO (20:28)
[2024-10-08] MEDS: REMERON 7.5 MG PO (21:39)
[2024-10-09] VITALS (15 sets, daily range): BP systolic 99–158; BP diastolic 65–121
[2024-10-09 00:40] LABS: Troponin I 0.013 ng/ml
[2024-10-09 04:57] LABS: Hematocrit 25.7 % (37.0-47.0); Hemoglobin 8.7 g/dL (12.0-16.0); Mean Corp Hgb Conc. 33.9 g/dL (33.0-37.0); Mean Corpuscular Volume 90.5 fL (81.0-99.0); Platelet Count 106 10^3/uL (130-400); Red Cell Dist. Width 14.6 % (11.5-14.5)
[2024-10-09 05:17] LABS: Blood Urea Nitrogen 29 mg/dl (7-17); Calcium 9.1 mg/dl (8.4-10.2); Carbon Dioxide 26 mmol/L (22-30); Chloride 115 mmol/L (98-107); Estimated Creatinine Clearance 55 ml/min; Glucose 71 mg/dl (70-99); Potassium 3.9 mmol/L (3.5-5.1); Sodium 143 mmol/L (135-145); eGFR > 60.00
--- NOTE | 2024-10-09 05:34 | PTCARENOTE ---
Pt appearing to sleep over night. Respiration even unlabored at this time. Pt on RA 97%. Pt NIH unremarkable. Pt had no BM over night. Call alvarado within reach, bed alarm on. Assessment care and vitals as charted.
[2024-10-09] MEDS: PROTONIX 100 IV ×2 (06:08→17:06)
--- NOTE | 2024-10-09 08:12 | W.PN.GI.CBS2 ---
Today's Communication / Plan
-
Hgb stable at 8.7
No further bleeding
Start clears and advance diet
OK to resume ASA
Continue protonix gtt for now and change to BID if stable overnight
Assessment / Plan
-
Impression:
Melena/burgundy BM
Two duodenal ulcers, one oozing superficially in second portion.
Acute blood loss anemia
Admitted with CVA s/p TNK 10/03
Hx Bio AVR
10/06/24- 1 unit PRBC
10/08/24- 1 unit PRBC
Subjective
Subjective
Date of Service: October 09, 2024
No BMs overnight. No complaints this am
Objective
Data Reviewed
Laboratory Data:
Laboratory Results
10/09/24 04:35
Laboratory Results
PT 14.8 Sec (11.4-14.6) H 10/03/24 17:17
INR 1.13 10/03/24 17:17
APTT 24.7 Sec (23.4-35.0) 10/03/24 17:17
Magnesium 1.9 mg/dl (1.6-2.3) 10/07/24 01:55
Total Bilirubin 1.1 mg/dl (0.2-1.3) 10/08/24 16:37
AST 33 U/L (14-36) 10/08/24 16:37
ALT 30 U/L (0-35) 10/08/24 16:37
Alkaline Phosphatase 40 U/L (38-126) 10/08/24 16:37
Vital Signs and I&O:
Vital Signs
Temp Pulse Resp BP Pulse Ox
98.0 F 86 24 116/75 99
10/09/24 07:30 10/09/24 06:19 10/09/24 06:19 10/09/24 06:19 10/09/24 04:34
I&O
10/08/24 10/09/24 10/10/24
06:59 06:59 06:59
Intake Total 120 / 120 370 / 370
Balance 120 / 120 370 / 370
Physical Exam
Physical Exam
GI: Soft and Non Tender
[2024-10-09] MEDS: NORVASC 5 MG PO (08:40)
[2024-10-09] MEDS: LOPRESSOR 50 MG PO (08:40)
--- NOTE | 2024-10-09 10:44 | W.PN.HOSP.TC ---
Today's Communication/Plan
-
Advance diet
Resume Aspirin
Check H&H this evening
Monitor for any bleeding/melena/bloody stools
Assessment / Plan
Assessment / Plan
Physical Exam
General: Well Developed and Well Nourished. Not in distress.
HEENT: Normocephalic, Atraumatic
Respiratory: Clear to Auscultation Bilaterally
Cardiac: S1/S2, Regular Rhythm and + Murmur
GI: Soft, non tender. Positive bowel sounds.
Musculoskeletal: No Clubbing and No Cyanosis
Skin: Warm and Dry
Neuro: Awake, Alert and oriented to surroundings, answering questions, she followed commands.
Psych: calm, no agitation
Assessment/Plan
#Melena 10/06/24 -- from 5mm ulcer second part duodenum with superficial oozing- cauterized w bipolar probe and 3mm clean based ulcer in bulb on EGD from 10/07/24
#New, progressive anemia, suspected from upper GI Bleed
#Hypotension and Tachycardia suspected from upper GI bleed
#Vasovagal Episodes during bowel movements 10/06/24
-Patient is status post TNK a few days ago on 10/03/24, currently on Aspirin (last dose of Aspirin was 10/06/24 morning)
-Resume Aspirin on 10/09/24
-Continue PPI Drip
-Advance to clear diet on 10/09/24 given no BMs and Hgb stable
-Appreciate gastroenterology -- EGD performed this morning, results are above
-1 unit PRBC given concern for active GI bleeding
-IV fluid bolus previously given hypotension
-Continue close monitoring in the IMU
-10/08/24 morning update: patient continued with hypotension, with reports of melena and red colored stool overnight
-2nd unit PRBC given on 10/08/24 in setting of Hgb drop, continued rectal bleeding
-10/09/24 morning: Hgb stable, no BMs, advance diet, resume Aspirin
-Continue to monitor Hgb and transfuse Hgb as needed to maintain Hgb>7.5, for any significant drop in Hgb, or for any hemodynamic instability or concerning symptoms thought to be from bleeding/anemia
#Stroke alert status post TNK administration
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
Patient was recently here for visual hallucination and confusion. Was seen by psychiatrist and neurologist Dr. Christensen, deemed to have possible Parkinson disease. Decided not to treat Parkinson , continue home dose of Remeron, and was discharged
She was readmitted this time with confusion, refused her home pills, dementia like picture. She was seen by psychiatrist, Decided to continue with Remeron and possible use of Seroquel if needed. Patient ( same day) had code stroke, she developed
left hemiparesis and right gaze. She was given tenecteplase and was in the ICU
Sudden onset of acute left sided hemiplegia/ left facial droop, right gaze s/p TNK on 10/03. CTA no acute bleeding
Started to improve since then, no pronator drift on exam, followed commands
Speech is back to her baseline which has been nonfluent for a few weeks (prior to presentation) according to the family
MRI of brain with new small 5 mm acute infarct in the subcortical white matter of the right occipital lobe
Echo without any clots
When resuming solid food, follow speech recommendations (currently patient is NPO)
Appreciate neurology
Appreciate cardiology given suspected embolic stroke -- consider longer outpatient cardiac monitoring could do 30-day Holter at time of discharge -- no additional cardiac procedures (e.g. no ILR given GI bleeding)
#Chest Pain on 10/08/24 - RESOLVED
-Suspected from anxiety
-Checked EKG (okay), troponins, proBNP (unremarkable), CXR (unremarkable), CMP (unremarkable), CBC (acceptable)
-No respiratory distress, fever, chills, hypotension, new flank or back pain, any source of bleeding other than rectal bleeding, itching, new rash or hypoxia
#Ascending Aortic Aneurysm
-When hypotension and bleeding have resolved, continue beta patricio
-has been stable (4.1 cm on recent imaging as above)
#Thrombocytopenia
-Likely from consumption from bleeding above
#History of Bio AVR
-Stable by echo
#She presented with increased Confusion & Agitation and Paranoia
She became less agitated, she had Mitts and safety lamp keeper
She was evaluated by psych, at one pint was considering Seroquel , she was on Remeron at home
Presented with hx of not taking her medications .
#Noncompliance with medications outpatient
#Acute urinary retention
Status post empiric Rocephin. Urine cultures negative
s/p Yin
#Patient was seen by neurologist last admission and diagnosed with possible Parkinson's Disease with Visual Hallucinations
Possible new onset based on exam, no prior hx of Parkinson disease
-Patient evaluated by Neurology last admission and decision was made not to start medication
-Appreciate psychiatry
# Essential Hypertension
Avoid antihypertensives for now given hypotension and GI bleed
# Irritable Bowel Syndrome - Diarrhea predominant
-Continue probiotics and cholestyramine
#Severe protein calorie malnutrition of chronic illness
DVT Prophylaxis: SCDs. No chemical DVT prophylaxis given suspected bleeding and upper GI Bleed.
Code Status: DNR - Dr. Ace confirmed with family at the time of admission
On 10/06/24, I spoke multiple times to patient's son Chris and I also spoke to patient's daughter Ariadna, they were in full agreement with the management plan above including management for hypotension, anemia and suspected GI bleeding.
Anticipated Discharge: 24 - 48 hours
Subjective/Interval History
-
Date of Service: October 09, 2024
Patient was seen and examined. She denied any symptoms or complaints. No bowel movements or rectal bleeding overnight.
Objective Data
-
Labs:
Laboratory Results
10/09/24 10/09/24 10/09/24
04:35 04:35 04:35
WBC 9.3
Hgb 8.7 L Cancelled
Hct 25.7 L Cancelled
Plt Count 106 L
Sodium 143
Potassium 3.9
Chloride 115 H
Carbon Dioxide 26
BUN 29 H
Creatinine 0.5 L
Glucose 71
Calcium 9.1
10/09/24 10/09/24
09:00 17:00
WBC
Hgb Cancelled Cancelled
Hct Cancelled Cancelled
Plt Count
Sodium
Potassium
Chloride
Carbon Dioxide
BUN
Creatinine
Glucose
Calcium
Vital Signs:
Vital Signs
Temp Pulse Resp BP Pulse Ox
98.0 F 104 19 130/110 97
10/09/24 07:30 10/09/24 08:39 10/09/24 08:39 10/09/24 08:40 10/09/24 09:41
I&O
10/08/24 10/09/24 10/10/24
06:59 06:59 06:59
Intake Total 120 / 120 370 / 370
Balance 120 / 120 370 / 370
--- NOTE | 2024-10-09 12:04 | W.PN.CD ---
Today's Communication / Plan
-
Patient comfortable no new symptoms remained stable on telemetry with no evidence of A-fib.
Aspirin okay as per GI. Hemoglobin 8.7. Without evidence of additional acute bleeding additional treatment of duodenal ulcer and GI bleed as directed by GI.
Would plan for outpatient 30-day monitor. I reviewed with this with my office who is working on coordinating a date and time to bring her in the office to place monitor next week
Impression / Plan
-
Stroke:
-MRI: New small 5 mm acute infarct in the subcortical white matter of the right occipital lobe.
-s/p TNK
-management per neurology
-now on ASA
-patient with acute GI bleeding this admission and evidence of ulcer on EGD no plan for DEENA at this time
- Continue treatment as directed by neuro. Would consider longer outpatient cardiac monitoring could do 30-day Holter at time of discharge. Holding off on additional procedures such as ILR with acute GI bleed.
- Telemetry reviewed no significant arrhythmias and no A-fib.
.
GIB bleed.
- EGD with duodenal ulcer with some oozing that was treated also small ulcer involved.
- Hemoglobin appears stable at 8.7.
-PPI
-Management directed by GI
.
Hx Bio AVR:
-stable by echo
HTN: Monitor
e
Ascending aortic aneurysm:
-has been stable (4.1 cm on recent imaging as above)
-continue BB
Change MS/increased agitation (presenting symptom prior to stroke):
-psych has been on the case
Subjective: feeling well mildly confused
Physical Exam
Vital Signs/Labs
Vital Signs
Temp Pulse Resp BP Pulse Ox
98.4 F 104 19 130/110 97
10/09/24 11:00 10/09/24 08:39 10/09/24 08:39 10/09/24 08:40 10/09/24 09:41
10/09/24 17:00
10/09/24 04:35
PT 14.8 Sec (11.4-14.6) H 10/03/24 17:17
INR 1.13 10/03/24 17:17
APTT 24.7 Sec (23.4-35.0) 10/03/24 17:17
Magnesium 1.9 mg/dl (1.6-2.3) 10/07/24 01:55
10/08/24
16:37
Klf-N-Fzoglpwmqun Pept 282
LAB Results
10/08/24 10/09/24 10/09/24
16:37 00:08 03:45
Troponin I < 0.012 0.013 Cancelled
10/09/24
09:45
Troponin I Cancelled
Physical Exam
Constitutional: No acute distress
Cardiovascular: Rhythm & rate is regular
Respiratory: Wheeze Absent and Rhonchi Absent
GI: Soft and Non tender
Neuro/Psych: Alert
Data Reviewed
-
Date of Service: October 09, 2024
Medical Decision Making: Reviewed Test Results
Echo: Report Reviewed by me
Medical Tests (PFT, Pathology etc): Report Reviewed by me
Labs: Labs Reviewed by me
[2024-10-09] MEDS: QUESTRAN 4 GRAM PO (15:20)
[2024-10-09] MEDS: TYLENOL 650 MG PO (15:25)
--- NOTE | 2024-10-09 18:45 | PTCARENOTE ---
protonix drip infusing. tolerating clear liquids. no bms this shift. see nursing assessment.
[2024-10-09] MEDS: LOPRESSOR PO (20:45)
[2024-10-09 21:16] LABS: Hematocrit 27.7 % (37.0-47.0); Hemoglobin 9.4 g/dL (12.0-16.0)
[2024-10-09] MEDS: REMERON PO (21:45)
[2024-10-10] VITALS (8 sets, daily range): BP systolic 95–141; BP diastolic 72–108
[2024-10-10] MEDS: PROTONIX 100 IV ×2 (02:41→14:01)
[2024-10-10 06:53] LABS: Hematocrit 25.0 % (37.0-47.0); Hemoglobin 8.2 g/dL (12.0-16.0); Mean Corp Hgb Conc. 32.8 g/dL (33.0-37.0); Mean Corpuscular Volume 89.6 fL (81.0-99.0); Platelet Count 105 10^3/uL (130-400); Red Cell Dist. Width 14.5 % (11.5-14.5)
[2024-10-10 07:02] LABS: Blood Urea Nitrogen 25 mg/dl (7-17); Calcium 8.9 mg/dl (8.4-10.2); Carbon Dioxide 27 mmol/L (22-30); Chloride 108 mmol/L (98-107); Estimated Creatinine Clearance 55 ml/min; Glucose 95 mg/dl (70-99); Magnesium 2.0 mg/dl (1.6-2.3); Potassium 3.7 mmol/L (3.5-5.1); Sodium 135 mmol/L (135-145); eGFR > 60.00
--- NOTE | 2024-10-10 08:43 | W.PN.GI.CBS2 ---
Today's Communication / Plan
-
Adv to low residue diet
OOB to chair PT
Monitor stool output
Protonix change to 40mg IV BID
Daughter updated
Assessment / Plan
-
Guillaume is an 83yo W with h/o bioprosthetic AVR, HTN and recent CVA s/p TNK who was admitted for change in mental status. GI consulted for anemia and melena Hbg from 14 to 7 on this admission. EGD showed 10/07 with 2 oozing duodenal ulcer s/p Bicap.
No bx taken.
Impression:
- Melena/burgundy BM
- Two duodenal ulcers, one oozing superficially in second portion.
- Acute blood loss anemia
- Admitted with CVA s/p TNK 10/03
- Hx Bio AVR
- HTN
- IBS
- Diverticulosis
Recommendations
- BUN downtrending and no further bloody BMs
- Adv to low residue diet and observe stool output
- PT OOB to chair today
- Resumed ASA 10/09
- C/w Protonix change to IV 40mg BID today
Daughter updated bedside. Former Dr. Durham patient will in future follow up with Dr Rodriguez. Will follow with you
Subjective
Subjective
Date of Service: October 10, 2024
Daughter bedside this AM. She denies abd pain, nausea vomiting. Tolerating CLD and has more energy today. No further bloody BMs
Objective
Data Reviewed
Laboratory Data:
Laboratory Results
10/10/24 06:25
10/10/24 06:25
Laboratory Results
PT 14.8 Sec (11.4-14.6) H 10/03/24 17:17
INR 1.13 10/03/24 17:17
APTT 24.7 Sec (23.4-35.0) 10/03/24 17:17
Magnesium 2.0 mg/dl (1.6-2.3) 10/10/24 06:25
Total Bilirubin 1.1 mg/dl (0.2-1.3) 10/08/24 16:37
AST 33 U/L (14-36) 10/08/24 16:37
ALT 30 U/L (0-35) 10/08/24 16:37
Alkaline Phosphatase 40 U/L (38-126) 10/08/24 16:37
Vital Signs and I&O:
Vital Signs
Temp Pulse Resp BP Pulse Ox
98.0 F 87 17 118/81 97
10/10/24 07:33 10/10/24 06:03 10/10/24 06:03 10/10/24 06:03 10/09/24 22:04
I&O
10/09/24 10/10/24 10/11/24
06:59 06:59 06:59
Intake Total 370 / 370 1300 / 1300
Balance 370 / 370 1300 / 1300
Physical Exam
Physical Exam
GEN: No acute distress, conversant, pleasant
HEENT: anicteric, extraocular movements intact, clear oropharynx without exudates
GI: soft, thin non-distended, not tender to palpation, normal active bowel sounds, no hepatosplenomegaly
EXT: warm, well perfused, no edema bilaterally
NEURO: AAOx3, non-focal
[2024-10-10] MEDS: NORVASC 5 MG PO (09:23)
[2024-10-10] MEDS: LOPRESSOR 50 MG PO ×2 (09:24→21:12)
[2024-10-10] MEDS: LOW STRENGTH ASPIRIN PO ×2 (09:24→09:31)
--- NOTE | 2024-10-10 11:55 | CM ---
Pt remains in IMU on bedrest; PT and OT are on hold at this time. Plan was for discharge to home with [facility], however per last PT 10/06/2024 and last OT 10/03/2024, recommendation is for SNF.
Plan: CM will continue to follow to coordinate discharge plans; [facility] vs. short term SNF.
[2024-10-10] MEDS: QUESTRAN 4 GRAM PO (14:01)
--- NOTE | 2024-10-10 17:17 | W.PN.HOSP.TC ---
Today's Communication/Plan
-
Advance diet
Out of bed as tolerated
Monitor for any gastrointestinal bleeding
AM labs
Transfer to telemetry
Assessment / Plan
Assessment / Plan
Physical Exam
General: Well Developed and Well Nourished. Not in distress.
HEENT: Normocephalic, Atraumatic
Respiratory: Clear to Auscultation Bilaterally
Cardiac: S1/S2, Regular Rhythm and + Murmur
GI: Soft, non tender. Positive bowel sounds.
Musculoskeletal: No Cyanosis
Skin: Warm and Dry
Neuro: Awake, Alert and oriented to surroundings, answering questions, she followed commands.
Psych: calm, no agitation
Assessment/Plan
#Melena 10/06/24 -- from 5mm ulcer second part duodenum with superficial oozing- cauterized w bipolar probe and 3mm clean based ulcer in bulb on EGD from 10/07/24
#New, progressive anemia, suspected from upper GI Bleed
#Hypotension and Tachycardia suspected from upper GI bleed
#Vasovagal Episodes during bowel movements 10/06/24
-Patient is status post TNK a few days ago on 10/03/24, currently on Aspirin (last dose of Aspirin was 10/06/24 morning)
-Resume Aspirin on 10/09/24
-PPI Drip transitioned to Protonix IV 40 mg BID
-Advance to low residue diet on 10/10/24 given stability of patient
-Appreciate gastroenterology -- EGD performed this morning, results are above
-1 unit PRBC given concern for active GI bleeding
-IV fluid bolus previously given hypotension
-10/08/24 morning update: patient continued with hypotension, with reports of melena and red colored stool overnight
-2nd unit PRBC given on 10/08/24 in setting of Hgb drop, continued rectal bleeding
-10/09/24 morning: Hgb stable, no BMs, advance diet, resumed Aspirin 10/09/24
-Continue to monitor Hgb and transfuse Hgb as needed to maintain Hgb>7.5, for any significant drop in Hgb, or for any hemodynamic instability or concerning symptoms thought to be from bleeding/anemia
#Stroke alert status post TNK administration
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
Patient was recently here for visual hallucination and confusion. Was seen by psychiatrist and neurologist Dr. Christensen, deemed to have possible Parkinson disease. Decided not to treat Parkinson , continue home dose of Remeron, and was discharged
She was readmitted this time with confusion, refused her home pills, dementia like picture. She was seen by psychiatrist, Decided to continue with Remeron and possible use of Seroquel if needed. Patient ( same day) had code stroke, she developed
left hemiparesis and right gaze. She was given tenecteplase and was in the ICU
Sudden onset of acute left sided hemiplegia/ left facial droop, right gaze s/p TNK on 10/03. CTA no acute bleeding
Started to improve since then, no pronator drift on exam, followed commands
Speech is back to her baseline which has been nonfluent for a few weeks (prior to presentation) according to the family
MRI of brain with new small 5 mm acute infarct in the subcortical white matter of the right occipital lobe
Echo without any clots
IDDSI 4+Thin Liquids as per speech
Appreciate neurology
Appreciate cardiology given suspected embolic stroke -- consider longer outpatient cardiac monitoring could do 30-day Holter at time of discharge -- no additional cardiac procedures (e.g. no ILR given GI bleeding)
#Chest Pain on 10/08/24 - RESOLVED
-Suspected from anxiety
-Checked EKG (okay), troponins, proBNP (unremarkable), CXR (unremarkable), CMP (unremarkable), CBC (acceptable)
-No respiratory distress, fever, chills, hypotension, new flank or back pain, any source of bleeding other than rectal bleeding, itching, new rash or hypoxia
#Ascending Aortic Aneurysm
-When hypotension and bleeding have resolved, continue beta patricio
-has been stable (4.1 cm on recent imaging as above)
#Thrombocytopenia
-Likely from consumption from bleeding above
#History of Bio AVR
-Stable by echo
#She presented with increased Confusion & Agitation and Paranoia
She became less agitated, she had Mitts and public safety telecommunicator
She was evaluated by psych, at one pint was considering Seroquel , she was on Remeron at home
Presented with hx of not taking her medications .
#Noncompliance with medications outpatient
#Acute urinary retention
Status post empiric Rocephin. Urine cultures negative
s/p Yin
#Patient was seen by neurologist last admission and diagnosed with possible Parkinson's Disease with Visual Hallucinations
Possible new onset based on exam, no prior hx of Parkinson disease
-Patient evaluated by Neurology last admission and decision was made not to start medication
-Appreciate psychiatry
# Essential Hypertension
Avoid antihypertensives for now given hypotension and GI bleed
# Irritable Bowel Syndrome - Diarrhea predominant
-Continue probiotics and cholestyramine
#Severe protein calorie malnutrition of chronic illness
DVT Prophylaxis: SCDs. No chemical DVT prophylaxis given suspected bleeding and upper GI Bleed.
Code Status: DNR - Dr. Ace confirmed with family at the time of admission
Will need re-ordering of speech, PT and OT evaluations once patient moves to telemetry
On 10/06/24, I spoke multiple times to patient's son Chris and I also spoke to patient's daughter Ariadna, they were in full agreement with the management plan above including management for hypotension, anemia and suspected GI bleeding.
Anticipated Discharge: 24 - 48 hours
Subjective/Interval History
-
Date of Service: October 10, 2024
Patient was seen and examined. She denied any symptoms or complaints.
Objective Data
-
Labs:
Laboratory Results
10/10/24
06:25
WBC 6.6
Hgb 8.2 L
Hct 25.0 L
Plt Count 105 L
Sodium 135 D
Potassium 3.7
Chloride 108 H
Carbon Dioxide 27
BUN 25 H
Creatinine 0.5 L
Glucose 95
Calcium 8.9
Vital Signs:
Vital Signs
Temp Pulse Resp BP Pulse Ox
99.0 F 104 20 119/85 96
10/10/24 14:36 10/10/24 09:24 10/10/24 09:20 10/10/24 09:24 10/10/24 10:06
I&O
10/09/24 10/10/24 10/11/24
06:59 06:59 06:59
Intake Total 370 / 370 1300 / 1300
Output Total 1100 / 1100
Balance 370 / 370 1300 / 1300 -1100 / -1100
--- NOTE | 2024-10-10 17:56 | PTCARENOTE ---
pt downgraded to tel. report given to
[2024-10-10] MEDS: PROTONIX IV 40 MG IV (21:12)
[2024-10-10] MEDS: NSS (PRESERVATIVE FREE) 10 ML IV (21:12)
[2024-10-10] MEDS: REMERON 7.5 MG PO (21:12)
[2024-10-10] MEDS: NSS 500 IV (23:40)
[2024-10-11] VITALS (9 sets, daily range): BP systolic 84–142; BP diastolic 52–115; PULSE 100; O2SAT 98
[2024-10-11 08:08] LABS: Hematocrit 23.4 % (37.0-47.0); Hemoglobin 7.9 g/dL (12.0-16.0); Mean Corp Hgb Conc. 33.8 g/dL (33.0-37.0); Mean Corpuscular Volume 90.3 fL (81.0-99.0); Red Cell Dist. Width 15.3 % (11.5-14.5)
[2024-10-11 08:33] LABS: Platelet Count 97 10^3/uL (130-400)
[2024-10-11 08:35] LABS: Blood Urea Nitrogen 16 mg/dl (7-17); Calcium 8.5 mg/dl (8.4-10.2); Carbon Dioxide 28 mmol/L (22-30); Chloride 105 mmol/L (98-107); Estimated Creatinine Clearance 55 ml/min; Glucose 92 mg/dl (70-99); Iron 35 ug/dl (37-170); Potassium 3.2 mmol/L (3.5-5.1); Sodium 133 mmol/L (135-145); eGFR > 60.00
--- NOTE | 2024-10-11 08:43 | W.PN.HOSP.TC ---
Today's Communication/Plan
-
On 10/11/24, I spoke with patient's son Chris and Chris's over the phone, and they would like home hospice, 16/10 caregiver no blood transfusion, no EGD, colonoscopy, and they do NOT want ambulance (they want to use their own car understanding
that she may decline or pass on the way home) -- continue holding Aspirin, but can resume diet while in the hospital. Patient is also in agreement with home hospice.
Assessment / Plan
Assessment / Plan
Physical Exam
General: Well Developed and Well Nourished. Not in distress.
HEENT: Normocephalic, Atraumatic
Respiratory: Clear to Auscultation Bilaterally
Cardiac: S1/S2, Regular Rhythm and + Murmur
GI: Soft, non tender. Positive bowel sounds.
Musculoskeletal: No Cyanosis
Skin: Warm and Dry
Neuro: Awake, Alert and oriented to surroundings, answering questions, she followed commands.
Psych: calm, no agitation
Assessment/Plan
#Melena 10/06/24 -- from 5mm ulcer second part duodenum with superficial oozing- cauterized w bipolar probe and 3mm clean based ulcer in bulb on EGD from 10/07/24
#New, progressive anemia, suspected from upper GI Bleed
#Hypotension and Tachycardia suspected from upper GI bleed
#Vasovagal Episodes during bowel movements 10/06/24
-Patient is status post TNK a few days ago on 10/03/24, currently on Aspirin (last dose of Aspirin was 10/06/24 morning)
-Resume Aspirin on 10/09/24
-PPI Drip transitioned to Protonix IV 40 mg BID
-Advance to low residue diet on 10/10/24 given stability of patient
-Appreciate gastroenterology -- EGD performed this morning, results are above
-1 unit PRBC given concern for active GI bleeding
-IV fluid bolus previously given hypotension
-10/08/24 morning update: patient continued with hypotension, with reports of melena and red colored stool overnight
-2nd unit PRBC given on 10/08/24 in setting of Hgb drop, continued rectal bleeding
-10/09/24 morning: Hgb stable, no BMs, advance diet, resumed Aspirin 10/09/24
-10/11/24 morning: Hgb drifting down, melena reported being present on 10/10/24 -- hold Aspirin
-I spoke with patient's son Chris and Chris's over the phone, and they would like home hospice, 16/10 caregiver no blood transfusion, no EGD, colonoscopy, and they do NOT want ambulance (they want to use their own car understanding that she may
pass on the way home) -- continue holding Aspirin, but can resume diet while in the hospital
#Stroke alert status post TNK administration
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
Patient was recently here for visual hallucination and confusion. Was seen by psychiatrist and neurologist Dr. Christensen, deemed to have possible Parkinson disease. Decided not to treat Parkinson , continue home dose of Remeron, and was discharged
She was readmitted this time with confusion, refused her home pills, dementia like picture. She was seen by psychiatrist, Decided to continue with Remeron and possible use of Seroquel if needed. Patient ( same day) had code stroke, she developed
left hemiparesis and right gaze. She was given tenecteplase and was in the ICU
Sudden onset of acute left sided hemiplegia/ left facial droop, right gaze s/p TNK on 10/03. CTA no acute bleeding
Started to improve since then, no pronator drift on exam, followed commands
Speech is back to her baseline which has been nonfluent for a few weeks (prior to presentation) according to the family
MRI of brain with new small 5 mm acute infarct in the subcortical white matter of the right occipital lobe
Echo without any clots
IDDSI 4+Thin Liquids as per speech
Appreciate neurology
Appreciate cardiology given suspected embolic stroke -- consider longer outpatient cardiac monitoring could do 30-day Holter at time of discharge -- no additional cardiac procedures (e.g. no ILR given GI bleeding)
#Chest Pain on 10/08/24 - RESOLVED
-Suspected from anxiety
-Checked EKG (okay), troponins, proBNP (unremarkable), CXR (unremarkable), CMP (unremarkable), CBC (acceptable)
-No respiratory distress, fever, chills, hypotension, new flank or back pain, any source of bleeding other than rectal bleeding, itching, new rash or hypoxia
#Ascending Aortic Aneurysm
-When hypotension and bleeding have resolved, continue beta patricio
-has been stable (4.1 cm on recent imaging as above)
#Thrombocytopenia
-Likely from consumption from bleeding above
#History of Bio AVR
-Stable by echo
#She presented with increased Confusion & Agitation and Paranoia
She became less agitated, she had Mitts and product safety associate
She was evaluated by psych, at one pint was considering Seroquel , she was on Remeron at home
Presented with hx of not taking her medications .
#Noncompliance with medications outpatient
#Dementia
#Acute urinary retention
Status post empiric Rocephin. Urine cultures negative
s/p Yin
#Patient was seen by neurologist last admission and diagnosed with possible Parkinson's Disease with Visual Hallucinations
Possible new onset based on exam, no prior hx of Parkinson disease
-Patient evaluated by Neurology last admission and decision was made not to start medication
-Appreciate psychiatry
# Essential Hypertension
-Hold Amlodipine to prevent hypotension, can continue beta patricio for now
# Irritable Bowel Syndrome - Diarrhea predominant
-Continue probiotics and cholestyramine
#Severe protein calorie malnutrition of chronic illness
DVT Prophylaxis: SCDs. No chemical DVT prophylaxis given suspected bleeding and upper GI Bleed.
Code Status: DNR - Dr. Ace confirmed with family at the time of admission
On 10/06/24, I spoke multiple times to patient's son Chris and I also spoke to patient's daughter Ariadna, they were in full agreement with the management plan above including management for hypotension, anemia and suspected GI bleeding.
On 10/11/24, I spoke with patient's son Chris and Chris's over the phone, and they would like home hospice, 16/10 caregiver no blood transfusion, no EGD, colonoscopy, and they do NOT want ambulance (they want to use their own car understanding
that she may decline or pass on the way home) -- continue holding Aspirin, but can resume diet while in the hospital. Patient is also in agreement with home hospice.
Anticipated Discharge: 24 - 48 hours
Subjective/Interval History
-
Date of Service: October 11, 2024
Patient was seen and examined. She reported doing fine, very conversant, denied any complaints. Per nurse report, patient had melena yesterday.
Objective Data
-
Labs:
Laboratory Results
10/11/24
07:43
WBC 5.4
Hgb 7.9 L
Hct 23.4 L
Plt Count 97 L
Sodium 133 L
Potassium 3.2 L
Chloride 105
Carbon Dioxide 28
BUN 16
Creatinine 0.5 L
Glucose 92
Calcium 8.5
Vital Signs:
Vital Signs
Temp Pulse Resp BP Pulse Ox
98.3 F 90 18 112/70 99
10/11/24 03:50 10/11/24 03:50 10/11/24 03:50 10/11/24 03:50 10/11/24 03:50
I&O
10/10/24 10/11/24 10/12/24
06:59 06:59 06:59
Intake Total 1300 / 1300 100 / 100
Output Total 1100 / 1100
Balance 1300 / 1300 -1000 / -1000
[2024-10-11 08:46] LABS: Total Iron Binding Capacity 218 ug/dl (265-497)
[2024-10-11 09:09] LABS: Ferritin 342.0 ng/ml (11.1-264.0)
[2024-10-11] MEDS: NORVASC PO (09:30)
[2024-10-11] MEDS: LOW STRENGTH ASPIRIN PO (09:30)
[2024-10-11] MEDS: PROTONIX IV 40 MG IV ×2 (09:31→20:43)
[2024-10-11] MEDS: NSS (PRESERVATIVE FREE) 10 ML IV ×2 (09:31→21:55)
[2024-10-11] MEDS: KCL 40 MEQ PO (09:33)
[2024-10-11] MEDS: LOPRESSOR 50 MG PO ×2 (09:33→20:45)
[2024-10-11] MEDS: FLUSH (NSS) 2 FLUSH IV (09:37)
[2024-10-11] MEDS: QUESTRAN 4 GRAM PO (13:25)
--- NOTE | 2024-10-11 14:43 | CM ---
Addendum entered by KARLA Gonzalez 10/11/24 15:36:
Since patient is not GIP hospice referral sent to [facility] for home hospice.
Original Note:
Family asked to meet with manager ambulatory to discuss hospice benefits. manager ambulatory met with 5 of the children and 4 of the children's spouses.
Patient is talking to family about hospice. She has told family that she does not want any more needles, no colonoscopy done. 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 Family reports she asked a nurse she knew about staying at
on hospice. CM explained she would need a hospice diagnosis and to be evaluated by hospice. Family is willing to take her home to her apartment with 24 hour care and hospice services.
family is not clear if patient wants anymore blood transfusions. Family noted her sudden decline and want to support her but do know she has some dementia. CM contacted attending who put in hospice consult. CM to send referral to hosp[place]. Jesus reached out via TT to carbonation tester hospice nurse: Luz Lopez. She will contact son Myles to arrange Sunday meeting.
--- NOTE | 2024-10-11 15:05 | HOSPNOTE ---
Notified by CM that family and patient were interested in hospice and wanted to set up a time to meet us. I called the son Myles. He was only actually interested in if inpatient hospice was appropriate with . I reviewed that there is specific
criteria to meet inpatient hospice. I reviewed that criteria with him and that his mom does not meet that criteria in which he agreed. I offered to arrange home hospice with them. He stated that they are well aware of hospice and they have a hospice
agency already lined up for patient to come home with. I thanked him for his time and told him that I would update CM to help facilitate getting patient home with the hospice they have lined up. CM updated with this information. Hospice will sign
off at this time.
[2024-10-11] MEDS: FLUSH (NSS) 1 FLUSH IV ×2 (20:44→20:48)
[2024-10-11] MEDS: REMERON 7.5 MG PO (21:52)
[2024-10-12 03:38] VITALS: BP 97/58
[2024-10-12 07:42] LABS: Blood Urea Nitrogen 12 mg/dl (7-17); Calcium 9.0 mg/dl (8.4-10.2); Carbon Dioxide 27 mmol/L (22-30); Chloride 107 mmol/L (98-107); Estimated Creatinine Clearance 55 ml/min; Glucose 91 mg/dl (70-99); Hematocrit 23.9 % (37.0-47.0); Hemoglobin 7.9 g/dL (12.0-16.0); Mean Corp Hgb Conc. 33.1 g/dL (33.0-37.0); Mean Corpuscular Volume 91.2 fL (81.0-99.0); Platelet Count 88 10^3/uL (130-400); Potassium 3.3 mmol/L (3.5-5.1); Red Cell Dist. Width 15.4 % (11.5-14.5); Sodium 135 mmol/L (135-145); eGFR > 60.00
--- NOTE | 2024-10-12 08:07 | W.PN.GI.CBS2 ---
Today's Communication / Plan
-
Home hospice
GI sign off
Assessment / Plan
-
Guillaume is an 83yo W with h/o bioprosthetic AVR, HTN and recent CVA s/p TNK who was admitted for change in mental status. GI consulted for anemia and melena Hbg from 14 to 7 on this admission. EGD showed 10/07 with 2 oozing duodenal ulcer s/p Bicap.
No bx taken.
Impression:
- Melena/burgundy BM
- Two duodenal ulcers, one oozing superficially in second portion.
- Acute blood loss anemia
- Admitted with CVA s/p TNK 10/03
- Hx Bio AVR
- HTN
- IBS
- Diverticulosis
Recommendations
- Discussed colonoscopy she declined
- She expressed wishes for hospice which is not inappropriate given her age and comorbidities
- Family meeting bedside 10/11 and per psychiatric security nurse referral placed
- Adv diet to regular
Above d/w hospitalist and RN. GI will sign off please call for questions
Subjective
Subjective
Date of Service: October 11, 2024
Of note this is delayed note from services/visit 10/11. No acute events she had some further bloody BM overnight. Family bedside. She wants diet advanced. Denies nausea/vomiting, abd pain.
Objective
Data Reviewed
Laboratory Data:
Laboratory Results
10/12/24 06:30
10/12/24 06:30
Laboratory Results
PT 14.8 Sec (11.4-14.6) H 10/03/24 17:17
INR 1.13 10/03/24 17:17
APTT 24.7 Sec (23.4-35.0) 10/03/24 17:17
Magnesium 2.0 mg/dl (1.6-2.3) 10/10/24 06:25
Total Bilirubin 1.1 mg/dl (0.2-1.3) 10/08/24 16:37
AST 33 U/L (14-36) 10/08/24 16:37
ALT 30 U/L (0-35) 10/08/24 16:37
Alkaline Phosphatase 40 U/L (38-126) 10/08/24 16:37
Vital Signs and I&O:
Vital Signs
Temp Pulse Resp BP Pulse Ox
97.9 F 98 16 97/58 97
10/12/24 03:38 10/12/24 03:38 10/12/24 03:38 10/12/24 03:38 10/12/24 03:38
I&O
10/11/24 10/12/24 10/13/24
06:59 06:59 06:59
Intake Total 100 / 100 1410 / 1410
Output Total 1100 / 1100
Balance -1000 / -1000 1410 / 1410
Physical Exam
Physical Exam
GEN: No acute distress, conversant, pleasant
HEENT: anicteric, extraocular movements intact, clear oropharynx without exudates
GI: soft, non-distended, not tender to palpation, normal active bowel sounds, no hepatosplenomegaly
EXT: warm, well perfused, trace edema bilaterally
NEURO: AAOx3, non-focal
[2024-10-12 08:09] VITALS: BP 116/77
[2024-10-12] MEDS: LOPRESSOR 50 MG PO ×2 (09:15→20:34)
[2024-10-12] MEDS: NSS (PRESERVATIVE FREE) 10 ML IV ×2 (09:15→20:35)
[2024-10-12] MEDS: PROTONIX IV 40 MG IV ×2 (09:15→20:34)
--- NOTE | 2024-10-12 10:37 | CM ---
Patient with Hx Parkinsons Disease with Dx stroke, GIB. Room air. Receiving Protonix gtt. Dysphagia diet. Per nurse; forgetful. PT recommends skilled rehab.
Message with Dr Briones; patient is ok for d/c tomorrow 11am.
Spoke with Samantha, [facility] (cell [phone]); provided update that Hospice spoke with son to confirm that patient is not appropriate for [facility] however hospice is recommended. Provided clinical update and referral updated in
[facility]. Samantha confirms that the patient is setup for d/c to home tomorrow with [facility], and family has arranged 24 hr caregiver with [facility]. The phone for [facility] is [phone], fax [phone]. Hospice nurse will be
Janet [phone]. Samantha is aware that son is requesting hospital bed.
Met with patient and spoke with patient's son Chris;
both agree with d/c home tomorrow with [facility] and 24 hr caregiver with [facility]. IMM completed.
Son requests patient be ready for d/c at 11am, as caregiver is ready to start at that time, and family will provide transport home in their w/c accessible van.
Son is requesting a hospital bed through hospice.
Patient's home address confirmed with son:
[address]
[place]
Plan home tomorrow 11am with [facility], with [facility], with family via their van.
[2024-10-12 12:09] VITALS: BP 108/74
[2024-10-12] MEDS: QUESTRAN 4 GRAM PO (13:03)
[2024-10-12 16:18] VITALS: BP 103/64
--- NOTE | 2024-10-12 18:55 | W.PN.HOSP.TC ---
Today's Communication/Plan
-
Home with home hospice tomorrow
Assessment / Plan
Assessment / Plan
Physical Exam
General: Well Developed and Well Nourished. Not in distress.
HEENT: Normocephalic, Atraumatic
Respiratory: Clear to Auscultation Bilaterally
Cardiac: S1/S2, Regular Rhythm and + Murmur
GI: Soft, non tender. Positive bowel sounds.
Musculoskeletal: No Cyanosis
Skin: Warm and Dry
Neuro: Awake, Alert and oriented to surroundings, answering questions, she followed commands.
Psych: calm, no agitation
Assessment/Plan
#Melena 10/06/24 -- from 5mm ulcer second part duodenum with superficial oozing- cauterized w bipolar probe and 3mm clean based ulcer in bulb on EGD from 10/07/24
#New, progressive anemia, suspected from upper GI Bleed
#Hypotension and Tachycardia suspected from upper GI bleed
#Vasovagal Episodes during bowel movements 10/06/24
-Patient is status post TNK a few days ago on 10/03/24, currently on Aspirin (last dose of Aspirin was 10/06/24 morning)
-Resumed Aspirin on 10/09/24
-PPI Drip transitioned to Protonix IV 40 mg BID
-Advance to low residue diet on 10/10/24 given stability of patient
-Appreciate gastroenterology -- EGD performed this morning, results are above
-1 unit PRBC given concern for active GI bleeding
-IV fluid bolus previously given hypotension
-10/08/24 morning update: patient continued with hypotension, with reports of melena and red colored stool overnight
-2nd unit PRBC given on 10/08/24 in setting of Hgb drop, continued rectal bleeding
-10/09/24 morning: Hgb stable, no BMs, advance diet, resumed Aspirin 10/09/24
-10/11/24 morning: Hgb drifting down, melena reported being present on 10/10/24 -- hold Aspirin
-I spoke with patient's son Chris and Chris's over the phone, and they would like home hospice, 16/10 caregiver no blood transfusion, no EGD, colonoscopy, and they do NOT want ambulance (they want to use their own car understanding that she may
pass on the way home) -- continue holding Aspirin, but can resume diet while in the hospital
#Stroke alert status post TNK administration
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
Patient was recently here for visual hallucination and confusion. Was seen by psychiatrist and neurologist Dr. Christensen, deemed to have possible Parkinson disease. Decided not to treat Parkinson , continue home dose of Remeron, and was discharged
She was readmitted this time with confusion, refused her home pills, dementia like picture. She was seen by psychiatrist, Decided to continue with Remeron and possible use of Seroquel if needed. Patient ( same day) had code stroke, she developed
left hemiparesis and right gaze. She was given tenecteplase and was in the ICU
Sudden onset of acute left sided hemiplegia/ left facial droop, right gaze s/p TNK on 10/03. CTA no acute bleeding
Started to improve since then, no pronator drift on exam, followed commands
Speech is back to her baseline which has been nonfluent for a few weeks (prior to presentation) according to the family
MRI of brain with new small 5 mm acute infarct in the subcortical white matter of the right occipital lobe
Echo without any clots
IDDSI 4+Thin Liquids as per speech
Appreciate neurology
Appreciate cardiology given suspected embolic stroke -- consider longer outpatient cardiac monitoring could do 30-day Holter at time of discharge -- no additional cardiac procedures (e.g. no ILR given GI bleeding)
#Chest Pain on 10/08/24 - RESOLVED
-Suspected from anxiety
-Checked EKG (okay), troponins, proBNP (unremarkable), CXR (unremarkable), CMP (unremarkable), CBC (acceptable)
-No respiratory distress, fever, chills, hypotension, new flank or back pain, any source of bleeding other than rectal bleeding, itching, new rash or hypoxia
#Ascending Aortic Aneurysm
-When hypotension and bleeding have resolved, continue beta patricio
-has been stable (4.1 cm on recent imaging as above)
#Thrombocytopenia
-Likely from consumption from bleeding above
#History of Bio AVR
-Stable by echo
#She presented with increased Confusion & Agitation and Paranoia
She became less agitated, she had Mitts and drug safety coordinator
She was evaluated by psych, at one pint was considering Seroquel , she was on Remeron at home
Presented with hx of not taking her medications .
#Noncompliance with medications outpatient
#Dementia
#Acute urinary retention
Status post empiric Rocephin. Urine cultures negative
s/p Yin
#Patient was seen by neurologist last admission and diagnosed with possible Parkinson's Disease with Visual Hallucinations
Possible new onset based on exam, no prior hx of Parkinson disease
-Patient evaluated by Neurology last admission and decision was made not to start medication
-Appreciate psychiatry
# Essential Hypertension
-Hold Amlodipine to prevent hypotension, can continue beta patricio for now
# Irritable Bowel Syndrome - Diarrhea predominant
-Continue probiotics and cholestyramine
#Severe protein calorie malnutrition of chronic illness
DVT Prophylaxis: SCDs. No chemical DVT prophylaxis given suspected bleeding and upper GI Bleed.
Code Status: DNR - Dr. Ace confirmed with family at the time of admission
On 10/06/24, I spoke multiple times to patient's son Chris and I also spoke to patient's daughter Ariadna, they were in full agreement with the management plan above including management for hypotension, anemia and suspected GI bleeding.
On 10/11/24, I spoke with patient's son Chris and Chris's over the phone, and they would like home hospice, 16/10 caregiver no blood transfusion, no EGD, colonoscopy, and they do NOT want ambulance (they want to use their own car understanding
that she may decline or pass on the way home) -- continue holding Aspirin, but can resume diet while in the hospital. Patient is also in agreement with home hospice.
Anticipated Discharge: Within 24 hours
Subjective/Interval History
-
Date of Service: October 12, 2024
Patient was seen and examined. She was smiling and talking and denied any new symptoms or complaints.
Objective Data
-
Labs:
Laboratory Results
10/12/24
06:30
WBC 4.8
Hgb 7.9 L
Hct 23.9 L
Plt Count 88 L
Sodium 135
Potassium 3.3 L
Chloride 107
Carbon Dioxide 27
BUN 12
Creatinine 0.5 L
Glucose 91
Calcium 9.0
Vital Signs:
Vital Signs
Temp Pulse Resp BP Pulse Ox
98.4 F 96 21 103/64 96
10/12/24 16:18 10/12/24 16:18 10/12/24 16:18 10/12/24 16:18 10/12/24 16:18
I&O
10/11/24 10/12/24 10/13/24
06:59 06:59 06:59
Intake Total 100 / 100 1410 / 1410
Output Total 1100 / 1100
Balance -1000 / -1000 1410 / 1410
[2024-10-12 19:00] VITALS: BP 114/68
--- NOTE | 2024-10-12 19:51 | PTCARENOTE ---
patient denies complaints, oral intake waxes and wanes, transfers with assist x1 to br, bed alarm maintained, vss, will continue to monitor.
[2024-10-12] MEDS: KCL 40 MEQ PO (20:34)
[2024-10-12] MEDS: REMERON 7.5 MG PO (22:02)
[2024-10-12 23:00] VITALS: BP 113/54
[2024-10-13 07:00] VITALS: BP 114/94
[2024-10-13] MEDS: NSS (PRESERVATIVE FREE) 10 ML IV (08:47)
[2024-10-13] MEDS: PROTONIX IV 40 MG IV (08:48)
[2024-10-13] MEDS: LOPRESSOR 50 MG PO (08:48)
[2024-10-13] MEDS: FLUSH (NSS) 2 FLUSH IV (08:49)
--- NOTE | 2024-10-13 09:46 | CM ---
entered discharge order.
Spoke with [facility] (cell [phone]) Samantha confirms that DME will be setup today .Also family arranged 24 hr caregiver with [facility]. The phone for [employer] Office is [phone], fax [phone].
Spoke with patient's son Chris [phone] she said that family arranged a vam transport to pts home [address] [place].
IMM reviewed and emailed IMM to [email or web address] as requested.
Son requests patient be ready for d/c at 11am, as caregiver is ready to start at that time.
PLAN Home with [facility], with [facility].
[facility] [phone]
fax [phone].
--- NOTE | 2024-10-13 13:02 | W.DCSUMMARY ---
Discharge Summary
Discharge Data
Date of Admission: 10/02/24
Date of Discharge: 10/13/24
-
Pending Results: No
Hospital Course
83 years old female presented with confusion and combativeness. Patient was admitted to the hospital and psychiatry was consulted. Patient was seen by neurology previous admission for history of visual hallucination and cogwheel rigidity. Patient
was diagnosed with possible Parkinson disease. Patient had underlying cognitive impairment. Patient was given empiric antibiotic for presumed UTI. Urine and blood culture did not show any growth. Patient had acute onset of focal neurological
deficit. She had left hemiaplasia with right gaze. Stroke alert was called. Patient was given tenecteplase based on consultation with [facility] neurology service. Patient was transferred to intensive care unit. She started to
improve with evangelical of her neurological functions. She continued to have some confusion and memory issue. Patient was started on aspirin therapy. MRI showed small acute right occipital stroke. Patient developed upper GI bleeding with
melena. She was evaluated by gastroenterology and underwent endoscopic evaluation that showed duodenal ulcer, status post bipolar cautery. She was started on Protonix therapy with holding aspirin. Her hemoglobin dropped and she was given blood
transfusion twice. Her hemoglobin stabilized and diet was advanced. Patient and family declined further GI workup. Family expressed wishes to seek comfort/palliative approach to patient's medical problem and they were interested in home health
services with hospice. outside sales account manager was involved. Patient remained hemodynamically stable was able to tolerate diet with no further GI bleeding. Patient was evaluated by physical therapy and recommended custodial facility. outside sales account manager
discussed with the family and they decided to provide 24-hour care and wanted hospice services. Patient was discharged in a stable condition.
Discharge Plan
-
Patient Disposition: Home with Hospice
Discharge Diagnosis/Procedures: .
Diet: No restrictions
Referrals:
Dion Diaz MD [Family Provider]
Prescriptions:
New
pantoprazole [Protonix] 40 mg tablet,delayed release (DR/EC)
40 mg PO DAILY Qty: 30 0RF
Continued
loperamide 2 mg Tablet
2 mg PO Q8HPRN PRN (Reason: nausea/vomiting)
metoprolol tartrate 50 mg Tablet
50 mg PO BID
Patient Comments:
10/02/2024, hold for SBP<100 and HR<60.
mirtazapine 7.5 mg Tablet
7.5 mg PO HS Qty: 0 0RF
multivitamin Tablet
1 tab PO DAILY
acetaminophen [Tylenol] 325 mg Tablet
650 mg PO Q6HPRN MDD 3000 mg PRN (Reason: mild pain/temp>100F)
magnesium hydroxide [Milk of Magnesia] 400 mg/5 mL Suspension
30 ml PO [id number] PRN (Reason: if no Bm x 3 days)
bisacodyl [Dulcolax (bisacodyl)] 10 mg Suppository
10 mg WI DAILYPRN PRN (Reason: if MOM ineffective)
zinc oxide 13 % Cream
1 applic TOPICAL BID
Cholestyramine Light 4 gram Powder
4 g PO DAILY
Discontinued
lisinopril 20 mg Tablet
20 mg PO DAILY
prednisone 10 mg Tablet
10 mg PO DAILY
Patient Comments:
10/02/2024, for 5 days (10/01/2024 - 10/06/2024).
Saccharomyces boulardii [Florastor] 250 mg Capsule
250 mg PO DAILY
amlodipine 5 mg Tablet
5 mg PO DAILY
fosfomycin tromethamine 3 gram Packet
3 g PO ONCE
Patient Comments:
10/02/2024, start date: 10/02/2024; end date: 10/03/2024.
thiamine HCl (vitamin B1) 100 mg Tablet
100 mg PO DAILY
Fleet Enema 19-7 gram/118 mL Enema
118 ml WI DAILYPRN PRN (Reason: if supp ineffective)
Probiotic Blend 2 billion cell-50 mg Capsule
1 cap PO Q12H
Patient Comments:
10/02/2024, 7 days (10/01/2024 - 10/08/2024).
Discharge Orders:
Discharge Patient (As Directed); Ordered 10/13/24
Ordered By: Fede Ace
Discharge Date and Time
Discharge Date/Time: 10/13/24 11:39
Print Language: ITALIAN
--- NOTE | 2024-10-13 13:19 | W.PN.HOSP.TC ---
Today's Communication/Plan
-
dc
Assessment / Plan
Assessment / Plan
Physical Exam
General: Well Developed and Well Nourished. Not in distress.
HEENT: Normocephalic, Atraumatic
Respiratory: Clear to Auscultation Bilaterally
Cardiac: S1/S2, Regular Rhythm and + Murmur
GI: Soft, non tender. Positive bowel sounds.
Musculoskeletal: No Cyanosis
Skin: Warm and Dry
Neuro: Awake, Alert and oriented to surroundings, answering questions, she followed commands.
Psych: calm, no agitation
Assessment/Plan
#Melena 10/06/24 -- from 5mm ulcer second part duodenum with superficial oozing- cauterized w bipolar probe and 3mm clean based ulcer in bulb on EGD from 10/07/24
#New, progressive anemia, suspected from upper GI Bleed
#Hypotension and Tachycardia suspected from upper GI bleed
#Vasovagal Episodes during bowel movements 10/06/24
-Patient is status post TNK a few days ago on 10/03/24, currently on Aspirin (last dose of Aspirin was 10/06/24 morning)
-Resumed Aspirin on 10/09/24
-PPI Drip transitioned to Protonix IV 40 mg BID
-Advance to low residue diet on 10/10/24 given stability of patient
-Appreciate gastroenterology -- EGD performed this morning, results are above
-1 unit PRBC given concern for active GI bleeding
-IV fluid bolus previously given hypotension
-10/08/24 morning update: patient continued with hypotension, with reports of melena and red colored stool overnight
-2nd unit PRBC given on 10/08/24 in setting of Hgb drop, continued rectal bleeding
-10/09/24 morning: Hgb stable, no BMs, advance diet, resumed Aspirin 10/09/24
-10/11/24 morning: Hgb drifting down, melena reported being present on 10/10/24 -- hold Aspirin
- DR Briones spoke with patient's son Chris and Chris's over the phone, and they would like home hospice, 16/10 caregiver no blood transfusion, no EGD, colonoscopy, and they do NOT want ambulance (they want to use their own car understanding
that she may pass on the way home) -- continue holding Aspirin, but can resume diet while in the hospital
#Stroke alert status post TNK administration
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
Patient was recently here for visual hallucination and confusion. Was seen by psychiatrist and neurologist Dr. Christensen, deemed to have possible Parkinson disease. Decided not to treat Parkinson , continue home dose of Remeron, and was discharged
She was readmitted this time with confusion, refused her home pills, dementia like picture. She was seen by psychiatrist, Decided to continue with Remeron and possible use of Seroquel if needed. Patient ( same day) had code stroke, she developed
left hemiparesis and right gaze. She was given tenecteplase and was in the ICU
Sudden onset of acute left sided hemiplegia/ left facial droop, right gaze s/p TNK on 10/03. CTA no acute bleeding
Started to improve since then, no pronator drift on exam, followed commands
Speech is back to her baseline which has been nonfluent for a few weeks (prior to presentation) according to the family
MRI of brain with new small 5 mm acute infarct in the subcortical white matter of the right occipital lobe
Echo without any clots
LE US no DVT
Appreciate neurology
Appreciate cardiology given suspected embolic stroke -- consider longer outpatient cardiac monitoring could do 30-day Holter at time of discharge -- no additional cardiac procedures (e.g. no ILR given GI bleeding)
#Chest Pain on 10/08/24 - RESOLVED
-Suspected from anxiety
-Checked EKG (okay), troponins, proBNP (unremarkable), CXR (unremarkable), CMP (unremarkable), CBC (acceptable)
-No respiratory distress, fever, chills, hypotension, new flank or back pain, any source of bleeding other than rectal bleeding, itching, new rash or hypoxia
#Ascending Aortic Aneurysm
-When hypotension and bleeding have resolved, continue beta patricio
-has been stable (4.1 cm on recent imaging as above)
#Thrombocytopenia
-Likely from consumption from bleeding above
#History of Bio AVR
-Stable by echo
#She presented with increased Confusion & Agitation and Paranoia
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
She was evaluated by psych, at one pint was considering Seroquel , she was on Remeron at home
Presented with hx of not taking her medications .
#Noncompliance with medications outpatient
#Dementia
#Acute urinary retention
Status post empiric Rocephin. Urine cultures negative
s/p Yin
#Patient was seen by neurologist last admission and diagnosed with possible Parkinson's Disease with Visual Hallucinations
Possible new onset based on exam, no prior hx of Parkinson disease
-Patient evaluated by Neurology last admission and decision was made not to start medication
-Appreciate psychiatry
# Essential Hypertension
-Hold Amlodipine to prevent hypotension, can continue beta patricio for now
# Irritable Bowel Syndrome - Diarrhea predominant
-Continue probiotics and cholestyramine
#Severe protein calorie malnutrition of chronic illness
DVT Prophylaxis: SCDs. No chemical DVT prophylaxis given suspected bleeding and upper GI Bleed.
Code Status: DNR - Dr. Ace confirmed with family at the time of admission
On 10/06/24, Dr Briones spoke multiple times to patient's son Chris and I also spoke to patient's daughter Ariadna, they were in full agreement with the management plan above including management for hypotension, anemia and suspected GI bleeding.
On 10/11/24, Dr Briones spoke with patient's son Chris and Chris's over the phone, and they would like home hospice, 16/10 caregiver no blood transfusion, no EGD, colonoscopy, and they do NOT want ambulance (they want to use their own car
understanding that she may decline or pass on the way home) -- continue holding Aspirin, but can resume diet while in the hospital. Patient is also in agreement with home hospice.
Total discharge time spent to see the patient on the floor, examine the patient, review data and lab results, discuss discharge plan with patient, nursing staff around 65 minutes.
Anticipated Discharge: Today
Subjective/Interval History
-
Date of Service: October 13, 2024
no complaints
She wants to go home, she denies chest pain, sob, abd pain , nausea or rectal bleeding
Objective Data
-
Vital Signs:
Vital Signs
Temp Pulse Resp BP Pulse Ox
98.1 F 103 18 114/94 99
10/13/24 07:00 10/13/24 08:48 10/13/24 07:00 10/13/24 08:48 10/13/24 07:00
I&O
10/12/24 10/13/24 10/14/24
06:59 06:59 06:59
Intake Total 1410 / 1410 1800 / 1800 240 / 240
Balance 1410 / 1410 1800 / 1800 240 / 240
--- NOTE | 2024-10-14 08:27 | PN.CDI ---
Addendum entered and electronically signed by Fede Ace MD 10/14/24 08:56:
Embolic stroke was not present on admission
Original Note:
CDI
- -
CDI:
Physician Documentation Request
Admit Date: 10/03/24 16:11
Dear Doctor Db,
Please review the following and provide your response in the progress notes.
Clinical Indicators:
Admitted 10/02
MRI 10/05
Discharge Summary, 10/13
#...presented with confusion and combativeness.
#...seen by neurology previous admission for history of visual hallucination
#...and cogwheel rigidity.
#...acute onset of focal neurological deficit.
#...left hemiaplasia with right gaze.
#...Stroke alert was called.
#...was given tenecteplase based on consultation with
#...[facility] neurology service.
#MRI showed small acute right occipital stroke.
#...Patient developed upper GI bleeding with melena.
#She presented with increased Confusion & Agitation and Paranoia
#Stroke alert status post TNK administration
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
Based on the above and your clinical assessment, please clarify if:
Embolic stroke was likely, probable, suspected to be present on admission
Embolic stroke was not present on admission
Other (please specify)
Use of terms such as suspected, likely, concern for, or probable (associated with a specific diagnosis that is being evaluated, monitored, or treated as if it exists) are acceptable and can be coded in the inpatient setting, when documented at the
time of discharge.
Thank you,
Silva Negrete RN BSN CCDS
CDI Specialist
Please contact via tiger text
Please use your independent medical judgment in providing your response.
== END 2024-10-13 11:39 | disposition hospice, home (50) | DRG 56 ==
LOC: 3 WEST ACU 16:11
PROVIDERS: Hospitalist; Nurse Practitioner Family; Physician Assistant Medical; Specialist; ADMITTING PHYSICIAN Internal Medicine; ATTENDING PHYSICIAN Internal Medicine; CONSULT PHYSICIAN Internal Medicine Cardiovascular Disease; CONSULT PHYSICIAN Internal Medicine Critical Care Medicine; CONSULT PHYSICIAN Internal Medicine Gastroenterology; EMERGENCY PHYSICIAN Emergency Medicine; FAMILY PHYSICIAN Internal Medicine; OTHER PHYSICIAN Psychiatry & Neurology Neurology; OTHER PHYSICIAN Psychiatry & Neurology Psychiatry
PROC: 3E03317 Introduction of Other Thrombolytic into Peripheral Vein, Percutaneous Approach (ICD-10-PCS; 2024-10-03)
PROC: 30233N1 Transfusion of Nonautologous Red Blood Cells into Peripheral Vein, Percutaneous Approach (ICD-10-PCS; 2024-10-06)
PROC: 0W3P8ZZ Control Bleeding in Gastrointestinal Tract, Via Natural or Artificial Opening Endoscopic (ICD-10-PCS; 2024-10-07)
DX: G20.A1 Parkinson's disease without dyskinesia, without mention of fluctuations (principal); E43 Unspecified severe protein-calorie malnutrition; K26.4 Chronic or unspecified duodenal ulcer with hemorrhage; I63.411 Cerebral infarction due to embolism of right middle cerebral artery; G93.40 Encephalopathy, unspecified; D62 Acute posthemorrhagic anemia; F02.811 Dementia in other diseases classified elsewhere, unspecified severity, with agitation; G81.94 Hemiplegia, unspecified affecting left nondominant side; I10 Essential (primary) hypertension; K58.0 Irritable bowel syndrome with diarrhea; Z66 Do not resuscitate; F32.A Depression, unspecified; F41.9 Anxiety disorder, unspecified; E78.00 Pure hypercholesterolemia, unspecified; Z68.22 Body mass index [BMI] 22.0-22.9, adult; E86.0 Dehydration; R29.706 NIHSS score 6; D72.829 Elevated white blood cell count, unspecified; D69.59 Other secondary thrombocytopenia; I71.21 Aneurysm of the ascending aorta, without rupture; R29.810 Facial weakness; R00.0 Tachycardia, unspecified; I95.9 Hypotension, unspecified; R07.9 Chest pain, unspecified; R33.9 Retention of urine, unspecified; I27.20 Pulmonary hypertension, unspecified; K21.9 Gastro-esophageal reflux disease without esophagitis; I89.0 Lymphedema, not elsewhere classified; Z91.148 Patient's other noncompliance with medication regimen for other reason; Z85.3 Personal history of malignant neoplasm of breast; Z95.3 Presence of xenogenic heart valve
CPT/HCPCS: 0042T; 36600; 70450; 70496; 70498; 70551; 71045; 74230; 80048; 80053; 81003; 81015; 82607; 82728; 82746; 82805; 82962; 83540; 83550; 83735; 83880; 84132; 84484; 85014; 85018; 85027; 85610; 85730; 86850; 86900; 86901; 86920; 87040; 87070; 87086; 92523; 92526; 92610; 92611; 93005; 93306; 93970; 97110; 97163; 97164; 97167; 97530; 99285; J3101; P9016; Q9967

== ENCOUNTER → 2024-12-23 15:34 | Outpatient (REF) | payer MEDICARE, OTHER, SELFPAY | LOC: WDC 15:34 | PROVIDERS: ATTENDING PHYSICIAN Surgery; FAMILY PHYSICIAN Family Medicine | DX: Z12.31 Encounter for screening mammogram for malignant neoplasm of breast (principal) | CPT/HCPCS: 77063; 77067 ==

== ENCOUNTER → 2025-01-01 08:42 | Outpatient (REF) | payer MEDICARE, OTHER, SELFPAY ==
[2025-01-01 10:09] LABS: Hematocrit 41.4 % (37.0-47.0); Hemoglobin 13.1 g/dL (12.0-16.0); Mean Corp Hgb Conc. 31.6 g/dL (33.0-37.0); Mean Corpuscular Volume 86.8 fL (81.0-99.0); Nucleated Red Blood Cells % 0 %; Platelet Count 98 10^3/uL (130-400); Red Cell Dist. Width 13.6 % (11.5-14.5)
[2025-01-01 11:18] LABS: ALT (SGPT) 25 U/L (0-35); AST (SGOT) 31 U/L (14-36); Albumin 4.6 g/dl (3.5-5.0); Alkaline Phosphatase 71 U/L (38-126); Blood Urea Nitrogen 22 mg/dl (7-17); Calcium 10.1 mg/dl (8.4-10.2); Carbon Dioxide 28 mmol/L (22-30); Chloride 102 mmol/L (98-107); Glucose 85 mg/dl (70-99); Potassium 4.1 mmol/L (3.5-5.1); Sodium 135 mmol/L (135-145); Total Protein 7.5 g/dl (6.3-8.2); eGFR > 60.00
== END ==
LOC: REG 08:42
PROVIDERS: ATTENDING PHYSICIAN Family Medicine
DX: C50.412 Malignant neoplasm of upper-outer quadrant of left female breast (principal); D50.0 Iron deficiency anemia secondary to blood loss (chronic)
CPT/HCPCS: 36415; 80053; 85025

== ENCOUNTER 2025-03-01 10:26 | Emergency (ER) | payer MEDICARE, OTHER, SELFPAY ==
[2025-03-01 10:28] VITALS: BP 159/92
--- NOTE | 2025-03-01 11:17 | ED.GENMED ---
History of Present Illness
General
Chief Complaint: Musculo-Skeletal Complaint
Source: patient and family (son at bedside)
Exam Limitations: none
Time Seen by Provider: 03/01/25 11:04
Nursing documentation reviewed up to this point in time: agreed with
History of Present Illness
History of Present Illness:
Patient is an 84-year-old female with history hypertension, hyperlipidemia who presents to the emergency department for evaluation of left arm pain. Patient states she woke up this morning with pain in her left upper arm. Pain is worse with
movement, specifically a 'reaching' motion. She denies any pain at rest. She denies any radiation of pain into her chest or back. She denies any numbness/tingling or weakness in left arm.
Of note�patient does sleep on her left side.
Patient denies any fever or chills. No chest shortness of breath. No cough. She denies any recent falls or trauma.
Patient has no known history of blood clots/clotting disorders. She does have a history of a lymph node dissection in the left axilla s/p lumpectomy/mastectomy many years ago.
Past History
Past History
ED Past Medical History: GERD, HTN, Hypercholesterolemia, Psychiatric (Anxiety), Other (Grade 1 breast cancer,), Other (Pulmonary hypertension) and Other (IBS)
ED Past Surgical History: Cardiac (Aortic valve replacement 2014), Cholecystectomy and Gynecological (Left mastectomy)
Social History
Tobacco: Non-smoker
Alcohol: None
Drug: None
Personal: Other
Living: other
Employment: Other
Family History
Family History: Other
Review of Systems
Review of Systems
Allergies reviewed?: Yes
All Other Systems: ROS reviewed and negative except as documented in HPI and ROS
Phy Exam
Physical Exam
Physical Exam:
Vitals: Hypertensive, otherwise vital signs stable. Afebrile
General: Patient is well appearing, no acute distress
Skin: Warm and dry, no rashes or lesions
Head: Normocephalic, atraumatic
Throat: Protecting airway
Neck: Normal ROM, no cervical spine tenderness
Cardiac: Regular rate and rhythm.
Pulm: No apparent respiratory distress. Lungs clear bilaterally
Abdomen: Nondistended
Extremities: No obvious deformity of left upper extremity. No bony tenderness of left clavicle, shoulder, upper arm, or forearm. No scapular tenderness. She has full range of motion left wrist, elbow, and shoulder against resistance. No skin
changes of left upper arm including erythema or warmth. 2+ palpable left radial and pulses. Capillary refill WNL.
Neuro: Grossly intact
Psychiatric: Normal affect.
Course
Orders/Labs/Results
Orders:
Orders
03/01/25 11:18
Electrocardiogram (*1) Urgent
Reason for Study: QTc Monitoring
Other Reason for Exam: arm pain
EKG- Treatment ONCE
Humerus, Left 2 Views [CR Humerus - Left Min 2 Views*] Urgent
Comment:
Reason For Exam: left arm pain
03/01/25 12:19
Arms, left US [US Periph Venous UPPER Ext LT] Urgent
Comment:
Reason For Exam: atraumatic left arm pain, hx lymph node dissection
03/01/25 15:01
Sling Left-Treatment ONCE
Vital Signs
Initial and Last Documented VS:
Initial Vital Signs
Temp Pulse Resp BP Pulse Ox
97.5 F 64 20 159/92 98
03/01/25 10:28 03/01/25 10:28 03/01/25 10:28 03/01/25 10:28 03/01/25 10:28
Last Documented Vital Signs
Temp Pulse Resp BP Pulse Ox
97.5 F 65 16 116/70 96
03/01/25 10:28 03/01/25 15:25 03/01/25 15:25 03/01/25 15:25 03/01/25 15:25
MDM/Problems Addressed
Differential Diagnosis Includes:
Not limited to: Muscular strain, radicular pain, rotator cuff injury, DVT, etc.
MDM/Problems Addressed:
84 year-old female with history as documented presenting with one day of atraumatic left upper extremity pain. Symptoms only present with movement. No radiation to chest or back. No associated chest pain, shortness of breath, or infectious symptoms.
Vitals and physical exam as above. Patient very well appearing and in no distress. Left upper extremity without any obvious deformity, bony tenderness, or overlying skin changes. She has palpable distal pulses and normal sensation. She has excellent
range of motion.
Differential as above. Suspect underlying muscular injury, possibly from sleeping on left arm given exacerbation with movement. Do not suspect infectious process. Low suspicion for DVT. Do not suspect cardiac process. Will screen with EKG. Will
check X-ray left humerus and US of LUE.
X-ray and ultrasound of left upper extremity without acute abnormalities. EKG shows no evidence of acute ischemia. Suspect muscular strain. Will give patient shoulder sling for comfort. Advised Tylenol, ice. She will follow-up with her primary care
provider if symptoms persist. Strict return precautions discussed.
Chronic conditions affecting care:
Hypertension
Acute Exacerbation and/or Progression of Chronic Illness:
Acutely hypertensive
*Radiology
Radiology exam reviewed: preliminary read by ED provider (Left humerus x-ray reviewed by sd-no acute fracture)
*Pulse Oximetry
SaO2: 98
Oxygen Mode of Delivery: Room air
Patient hypoxic: no
*EKG
Interpreted by ED Provider?: Yes
EKG Intrepretation Date: 03/01/25
Interpretation: abnormal
Comparison EKG: changes noted
Heart Rate: 59
Rate: bradycardiac
Rhythm: sinus
Callao: left axis deviation
Interval: normal QT interval
QRS Pattern: left vent hypertrophy
Ischemia: non-specific ST changes
*Electric Wheelchair Repairer Interpretation
Rate: Electric Wheelchair Repairer- N/A
*Critical Care Note
Total Time (30-74mins, 75-104mins- exclusive of procedures): Not Applicable
ED Attending Note
-
Portions of this chart may have been created with voice recognition software.� Occasional wrong word or��sound alike� substitutions may have occurred due to the inherent limitations of voice recognition software.
Discharge Plan
Departure
Patient Disposition: Home (Routine Discharge)
Date of Disposition: 03/01/25
Time of Disposition: 14:54
Patient with high blood pressure during this ER visit?: Yes
Condition: Good
Discharge Problem:
Left arm pain
Instructions: BLOOD PRESSURE
Prescriptions:
No Action
loperamide 2 mg Tablet
2 mg PO Q8HPRN PRN (Reason: nausea/vomiting)
metoprolol tartrate 50 mg Tablet
50 mg PO BID
Patient Comments:
10/02/2024, hold for SBP<100 and HR<60.
mirtazapine 7.5 mg Tablet
7.5 mg PO HS Qty: 0 0RF
multivitamin Tablet
1 tab PO DAILY
acetaminophen [Tylenol] 325 mg Tablet
650 mg PO Q6HPRN MDD 3000 mg PRN (Reason: mild pain/temp>100F)
magnesium hydroxide [Milk of Magnesia] 400 mg/5 mL Suspension
30 ml PO [id number] PRN (Reason: if no Bm x 3 days)
bisacodyl [Dulcolax (bisacodyl)] 10 mg Suppository
10 mg AR DAILYPRN PRN (Reason: if MOM ineffective)
zinc oxide 13 % Cream
1 applic TOPICAL BID
Cholestyramine Light 4 gram Powder
4 g PO DAILY
pantoprazole [Protonix] 40 mg tablet,delayed release (DR/EC)
40 mg PO DAILY Qty: 30 0RF
Referrals:
Walter Ko MD [Family Provider, Family Practice] - Follow up in 5-7 days
Activity Restrictions/Additional Instructions:
RETURN TO THE EMERGENCY DEPARTMENT WITH ANY FEVER, WORSENING REDNESS, SWELLING, OR PAIN OF LEFT ARM, NUMBNESS/TINGLING, WORSENING CURRENT SYMPTOMS, OR ANY OTHER CONCERNS
- As discussed your x-ray showed no evidence of acute fracture. Your ultrasound showed no evidence of a blood clot. I suspect your symptoms are likely muscular in nature.
- Please continue to take Tylenol. You can apply ice/heat. Limit activities that further exacerbate pain.
- Wear sling as needed. Please be sure to range her shoulder joint frequently throughout the day to prevent a frozen shoulder.
- Follow-up with primary care for further evaluation/management if symptoms persist and/or worsen
Monitor your symptoms closely and return to the emergency department with any acute worsening/new symptoms or any other concerns
Interventions
Interventions:
*Risk Screen - Suicide Last Done: 03/01/25 15:23
*General Assessment Last Done: 03/01/25 15:23
*Neglect/Abuse Screening Last Done: 03/01/25 15:23
*ED COVID-19 Vaccine History Last Done: 03/01/25 10:31
*ED Influenza Vaccine History Last Done: 03/01/25 10:31
[facility] Risk Assessment Tool Last Done: 03/01/25 15:23
*Nursing Disposition Last Done: 03/01/25 15:26
ED-Musculoskeletal Assessment Last Done: 03/01/25 15:23
Discharge Date and Time
Discharge Date/Time: 03/01/25 15:26
Print Language: BAHRAINI
[2025-03-01 15:25] VITALS: BP 116/70
== END 2025-03-01 15:26 | disposition home or self-care (01) ==
LOC: EMR 10:26
PROVIDERS: EMERGENCY PHYSICIAN Emergency Medicine; FAMILY PHYSICIAN Family Medicine
DX: M79.622 Pain in left upper arm (principal); I10 Essential (primary) hypertension; E78.00 Pure hypercholesterolemia, unspecified; K21.9 Gastro-esophageal reflux disease without esophagitis; F41.9 Anxiety disorder, unspecified; I27.20 Pulmonary hypertension, unspecified; K58.9 Irritable bowel syndrome, unspecified; Z85.3 Personal history of malignant neoplasm of breast; Z90.12 Acquired absence of left breast and nipple; Z90.49 Acquired absence of other specified parts of digestive tract; Z95.2 Presence of prosthetic heart valve
CPT/HCPCS: 99284; 73060; 93005; 93971

== ENCOUNTER → 2025-03-23 14:58 | Outpatient (REF) | payer MEDICARE, OTHER, SELFPAY | LOC: WDC 14:58 | PROVIDERS: ATTENDING PHYSICIAN Nurse Practitioner Adult Health; FAMILY PHYSICIAN Family Medicine | DX: R22.32 Localized swelling, mass and lump, left upper limb (principal) | CPT/HCPCS: 76642 ==